=== PATIENT | male | born 1935 | race Caucasian/White ===

== ENCOUNTER → 2017-09-01 | Outpatient (CLI) | payer OTHER, BC ==
[~2017-09-01] MED LIST: ALLO100T PO; ASPI81TA28 PO; ATEN50TA8 PO; CALC500C70 PO; CHOL20007 PO; CLOP1TAB15 PO; CRS10 PO; HYZ/50125 PO; INSDGI SC; NVLGI SC; PRLSR20 PO; TORS10TA14 PO; TYLER650 PO
--- NOTE | 2017-09-01 14:14 | DIAGNOSTIC IMAGING REPORT ---
MRI OF THE BRAIN WITHOUT CONTRAST CLINICAL HISTORY: MEMORY LOSS, IMBALANCE, R/O CVA OCCASIONAL HEADACHES. COMPARISON STUDY: None. FINDINGS: Sagittal T1, axial diffusion, proton density and T2 weighted axial, coronal FLAIR, and axial T1-weighted images were acquired. No intra or extra-axial mass lesions are visualized Axial diffusion-weighted images reveal no evidence of acute or subacute infarction. There is no evidence of ventricular dilatation. Proton density T2-weighted and FLAIR images reveal scattered foci of increased T2 signal within the white matter, likely on a small vessel basis. There are no abnormal flow voids. There is moderate mucosal thickening within the left maxilla sinus. IMPRESSION: 1. No acute intracranial findings 2. No evidence of acute or subacute infarction 3. No evidence of intracranial mass in this noncontrast study 4. Moderate left maxillary sinus mucosal thickening Electronically signed by: Ki Mejia M.D. 09/01/2017 2:12 PM Dictated Date/Time: 09/01/2017 2:03 PM
== END | disposition home or self-care (01) ==
LOC: C.MRIBC 08:33
PROVIDERS: ATTEND Internal Medicine
DX: R41.3 Other amnesia (principal); R26.89 Other abnormalities of gait and mobility

== ENCOUNTER 2023-04-29 19:55 | Inpatient (IN) ==
[2023-04-29] MEDS ORDERED: ACETAMINOPHEN 500 MG TAB PO STA (20:03)
--- NOTE | 2023-04-29 20:07 | Emergency Department Note ---
Impression & Plan Acute kidney injury superimposed on chronic kidney disease, Closed head injury, Blunt chest trauma, Contusion of rib, Ground-level fall ED Provider Note Name: CATA HENRY Age: 88 Sex: M Arrives Via: Ambulance Informant: Patient and ED Provider: Hung Matthews MD Chief Complaint: Head injury Impression: Impression above Medical Decision Making: Pleasant 88-year-old gentleman with a history of dementia, dyslipidemia, diabetes, hypertension, CAD, CKD, arrives for evaluation following a fall. He apparently fell due to not using his walker though on exam he has dementia and is dehydrated. Patient does not overtly appear altered nor does he have any neurodeficits. GCS is 15. He does have a large contusion to his forehead he has tenderness to palpation of the left lower lateral ribs and he has mild complaint of neck discomfort. CT of the head, neck, chest are obtained which are fortunately negative for acute findings. His laboratory work-up reveals an elevated creatinine from his baseline. notes that his previous kidney diagnosis was stage III and has not had to see an kidney specialist in some time. They also note they do not have a doctor around [facility] as a follow-up with someone in [place] during the half the year that they live down there. Given his age, dehydration, elevated creatinine, fall, head injury I think all these results and the need for continued monitoring and hospitalization. Hospitalist was consulted for further management Prior Medical Record and Triage/Nursing Notes reviewed by Me External chart reviewed by me which are records from 2018 noting previous creatinine. Differentials: Infection, dehydration, metabolic abnormality, hypo/hyperglycemia, electrolyte disturbance, anemia, hypoxia, cardiac sources, intracerebral event, toxicologic, neurologic, as well as other pathologies. Vital Signs: reviewed and remarkable for mild hypertension Interventions: Normal saline bolus 500 mL IV Labs:Reviewed and remarkable for acute elevation of creatinine. All other labs reviewed by me Imaging:CT of the head as per my informal interpretation reveals no intracranial hemorrhage, mass effect. Confirmed by radiologist. CT of the cervical spine as per my informal interpretation reveals no fracture or dislocation. There is significant arthritic findings throughout. Confirmed by radiologist. CT of the chest without contrast as per my informal interpretation reveals no pneumothorax, displaced rib fractures, pneumonia. Atelectasis bilaterally. C onfirmed by radiologist. Consults:Hospitalist Dr Garsia Plan: Disposition:Hospitalization. Condition: Fair History of Present Illness:88-year-old gentleman arrives for evaluation following fall. Patient was try to get around without his walker today and tripped and fell. He landed on his face. Complaining of mild forehead pain mild neck pain and some left rib pain. Due to the pain he was unable to get up and EMS was called. Patient notes he is feeling much better now. Does agree to some Tylenol. Denies any chest pain other than the left lower ribs hurting, shortness of breath, back pain, abdominal pain, nausea, vomiting, visual changes, urinary/bowel issues or any other concerning signs or symptoms. notes that he does have a history of dementia and that he is a bit unsteady at home but as long as he has his walker she feels he is safe at home. She denies him having any altered mental status, fevers, other concerning signs or symptoms recently. She states she has been following with his GP as well as vacuum technician closely. Past History:See Below Home Medications:See Below Allergies: Morphine, pollen, shellfish, atorvastatin Vitals:Blood Pressure: 159/83, Pulse 74, RR 20, T 36.9C, O2 97% on RA Physical Exam: GENERAL: Patient is elderly appearing and in minimal distress. HEAD: Contusion upper forehead EYES: No scleral icterus, unremarkable pupils. ENT: Mucous membranes moist, no nasal congestion. NECK: No masses appreciated, nomeningismus, trachea is midline. CHEST: TTP over left lateral lower ribs, equal rise RESPIRATORY: No dyspnea. Clear to auscultation and equal bilaterally. No wheeze, no rhonchi. CARDIOVASCULAR: Regular rate and rhythm.No murmurs, rubs, gallops appreciated. GASTROINTESTINAL: Abdomen soft, non-tender, no peritonitis. EXTREMITIES: Normal motion all extremities, no cyanosis, no edema. NEUROLOGIC: Alert and with mild dementia happy no distress. No focal neurologic deficit appreciated. SKIN: No rash, no jaundice, no diaphoresis. PSYCH: Appropriate GCS: 15 ED Course: Times/Reassessments: Patient stable throughout he is sleeping in no distress. Both are agreeable to hospitalization. Hung Matthews MD Past Med/Surg History Medical History (Updated 04/29/23 @ 22:40 by Hung Matthews MD) CAD (coronary artery disease) Chronic kidney disease (CKD), stage III (moderate) Dementia Diabetes mellitus, type 2 Gout Hearing deficit Hyperlipidemia Hypertension CAMARILLO (nonalcoholic steatohepatitis) On anticoagulant therapy on plavix Osteoarthritis Pacemaker 05/2018 @ [facility] by Dr. Abby Bustamante PAD (peripheral artery disease) Sleep apnea CPAP--doesn't used as ordered Surgical History History of bilateral cataract extraction History of cardiac cath x2----no stents History of colonoscopy History of coronary angioplasty 1986 History of esophagogastroduodenoscopy (EGD) History of lumbar fusion hardware in place History of tonsillectomy History of tooth extraction S/P CABG x 3 1999 @ [facility] [place] S/P peripheral artery angioplasty with stent placement x2-- (total of 2 stents) Family History Mother Family history of diabetes mellitus Social History Smoking Status: Former smoker Second Hand Exposure: Yes (father smoked); Do You Dip or Chew Tobacco: No; Hx Alcohol Use: Yes Alcohol type: hard liquor Hx Substance Use: No Preferred Language: Indonesian Communication Ability: Effective Coke Wheeler Required: No Beliefs That Will Affect Care: None Current Living Situation: Spouse Feels Safe at Home: Yes Assistive Devices: Cane, CPAP, Glasses and Hearing Aid - Bilateral Allergies Allergies Allergy/AdvReac Type Severity Reaction Status Date / Time morphine Allergy Unknown HIVES Verified 08/25/18 08:00 pollen extracts Allergy Unknown RUNNY EYES Verified 08/25/18 08:00 shellfish derived Allergy Unknown NECK Verified 08/25/18 08:00 SWELLS-30 YRS AGO WITH CRABS atorvastatin AdvReac Mild SHOULDER Verified 08/25/18 08:00 PAIN Home Meds Home Medications Medication Instructions Recorded Confirmed allopurinol 100 mg tablet 100 mg PO QAM 08/19/18 04/29/23 aspirin 81 mg tablet,delayed 81 mg PO QPM 08/19/18 04/29/23 release atenolol 50 mg tablet 25 mg PO QAM 08/19/18 04/29/23 clopidogrel 75 mg tablet 75 mg PO QAM 08/19/18 04/29/23 insulin aspart U-100 100 unit/mL 1 unit subcut AC 12/05/18 12/11/18 (3 mL) subcutaneous pen (Novolog FlexPen U-100 Insulin aspart) insulin glargine 100 unit/mL 56 unit subcut HS 08/19/18 08/25/18 subcutaneous solution omeprazole 20 mg tablet,delayed 20 mg PO BID 08/19/18 04/29/23 release rosuvastatin 5 mg tablet 5 mg PO QPM 08/19/18 04/29/23 torsemide 10 mg tablet 10 mg PO QAM 08/19/18 04/29/23 furosemide 40 mg tablet 80 mg PO UD 04/29/23 04/29/23 ranolazine 500 mg tablet,extended 500 mg PO BID 04/29/23 04/29/23 release,12 hr tamsulosin 0.4 mg capsule 0.4 mg PO DAILY 04/29/23 04/29/23 Results & Data (ED) Vital Signs Vital Signs - 24 hr 04/29/23 20:04 04/29/23 20:14 04/29/23 20:09 Temperature 36.9 C Temperature Source Oral Pulse Rate 69 64 Pulse Rate from SpO2 Sensor Pulse Rhythm Regular Pulse Strength Normal Respiratory Rate 18 Respiratory Effort / Characteristics Non-Labored Spontaneous Non-Labored Spontaneous Respiratory Depth Normal Normal Respiratory Pattern Regular Blood Pressure 151/69 H Blood Pressure Mean 96 Blood Pressure Position Sitting Pulse Oximetry 95 Oxygen Delivery Method Room Air Sepsis Recent Fever Within 48 Hours No Sepsis New/Unexplained Change in Mental Status N/A Sepsis Action Taken by Nursing No Action Required 04/29/23 20:13 04/29/23 20:30 04/29/23 21:02 Temperature Temperature Source Pulse Rate 64 60 68 Pulse Rate from SpO2 Sensor 64 60 Pulse Rhythm Pulse Strength Respiratory Rate 22 21 19 Respiratory Effort / Characteristics Respiratory Depth Respiratory Pattern Blood Pressure Blood Pressure Mean Blood Pressure Position Pulse Oximetry 97 95 Oxygen Delivery Method Sepsis Recent Fever Within 48 Hours Sepsis New/Unexplained Change in Mental Status Sepsis Action Taken by Nursing 04/29/23 21:31 04/29/23 21:36 04/29/23 22:00 Temperature Temperature Source Pulse Rate 68 74 60 Pulse Rate from SpO2 Sensor 65 74 60 Pulse Rhythm Pulse Strength Respiratory Rate 20 20 22 Respiratory Effort / Characteristics Respiratory Depth Respiratory Pattern Blood Pressure 159/83 H Blood Pressure Mean 108 Blood Pressure Position Pulse Oximetry 92 97 93 Oxygen Delivery Method Sepsis Recent Fever Within 48 Hours Sepsis New/Unexplained Change in Mental Status Sepsis Action Taken by Nursing 04/29/23 22:30 04/29/23 22:37 Temperature Temperature Source Pulse Rate 60 60 Pulse Rate from SpO2 Sensor Pulse Rhythm Pulse Strength Respiratory Rate 19 22 Respiratory Effort / Characteristics Respiratory Depth Respiratory Pattern Blood Pressure 138/62 Blood Pressure Mean 87 Blood Pressure Position Pulse Oximetry Oxygen Delivery Method Sepsis Recent Fever Within 48 Hours Sepsis New/Unexplained Change in Mental Status Sepsis Action Taken by Nursing Laboratory Data 04/29/23 20:15 04/29/23 20:15 Lab Results 04/29/23 04/29/23 04/29/23 Range/Units 20:15 20:15 20:15 WBC 11.95 H (4.8-10.8) K/ul RBC 3.70 L (4.70-6.10) M/uL Hgb 12.2 L (14.0-18.0) g/dl Hct 35.0 L (42.0-52.0) % MCV 94.6 (80.0-100.0) fL MCH 33.0 (25.0-34.0) pg MCHC 34.9 (32.0-36.0) g/dL RDW Std Deviation 54.4 H (36.4-46.3) fL RDW Coeff of Dave 15.7 H (11.5-14.5) % Plt Count 155 (130-400) K/uL MPV 11.5 (9.4-12.4) fL Immature Gran % (Auto) 1.1 % Neut % (Auto) 77.9 % Lymph % (Auto) 10.4 % Calloway % (Auto) 8.4 % Eos % (Auto) 1.9 % Baso % (Auto) 0.3 % Neut # (Auto) 9.32 H (1.40-6.50) K/uL Lymph # (Auto) 1.24 (1.2-3.4) K/uL Calloway # (Auto) 1.00 H (0.11-0.59) K/uL Eos # (Auto) 0.23 (0-0.50) K/uL Baso # (Auto) 0.03 (0-0.2) K/uL Immature Gran # (Auto) 0.13 (0.01-0.20) K/uL Sodium 139 (136-145) mmol/L Potassium 4.0 (3.5-5.1) mmol/L Chloride 107 (98-107) mmol/L Carbon Dioxide 24 (21-32) mmol/L Anion Gap 8 (3-11) BUN 60 H (6-23) mg/dl Creatinine 2.86 H (0.6-1.4) mg/dl Est Cr Clr Drug Dosing 16.8 ml/min Est GFR ( Amer) 22.1 ml/min Est GFR (Non-Af Amer) 19.0 ml/min BUN/Creatinine Ratio 21.0 H (10-20) Glucose 117 H (70-99(Fasting)) mg/dl Osmolality 307 H (280-300) mOsm/kg Calcium 9.3 (8.6-10.3) mg/dl Magnesium 1.9 (1.7-2.4) mg/dl Total Bilirubin 0.7 (0.2-1.0) mg/dl Direct Bilirubin 0.2 (0-0.2) mg/dl AST 15 (13-39) U/L ALT 10 (7-52) U/L Alkaline Phosphatase 96 (34-104) U/L Total Protein 6.4 (6.0-8.3) gm/dl Albumin 3.7 (3.4-5.0) gm/dl Urine Osmolality (500-800) mOsm/kg Ur Random Sodium mmol/L 04/29/23 04/29/23 Range/Units 21:31 21:31 WBC (4.8-10.8) K/ul RBC (4.70-6.10) M/uL Hgb (14.0-18.0) g/dl Hct (42.0-52.0) % MCV (80.0-100.0) fL MCH (25.0-34.0) pg MCHC (32.0-36.0) g/dL RDW Std Deviation (36.4-46.3) fL RDW Coeff of Dave (11.5-14.5) % Plt Count (130-400) K/uL MPV (9.4-12.4) fL Immature Gran % (Auto) % Neut % (Auto) % Lymph % (Auto) % Calloway % (Auto) % Eos % (Auto) % Baso % (Auto) % Neut # (Auto) (1.40-6.50) K/uL Lymph # (Auto) (1.2-3.4) K/uL Calloway # (Auto) (0.11-0.59) K/uL Eos # (Auto) (0-0.50) K/uL Baso # (Auto) (0-0.2) K/uL Immature Gran # (Auto) (0.01-0.20) K/uL Sodium (136-145) mmol/L Potassium (3.5-5.1) mmol/L Chloride (98-107) mmol/L Carbon Dioxide (21-32) mmol/L Anion Gap (3-11) BUN (6-23) mg/dl Creatinine (0.6-1.4) mg/dl Est Cr Clr Drug Dosing ml/min Est GFR ( Amer) ml/min Est GFR (Non-Af Amer) ml/min BUN/Creatinine Ratio (10-20) Glucose (70-99(Fasting)) mg/dl Osmolality (280-300) mOsm/kg Calcium (8.6-10.3) mg/dl Magnesium (1.7-2.4) mg/dl Total Bilirubin (0.2-1.0) mg/dl Direct Bilirubin (0-0.2) mg/dl AST (13-39) U/L ALT (7-52) U/L Alkaline Phosphatase (34-104) U/L Total Protein (6.0-8.3) gm/dl Albumin (3.4-5.0) gm/dl Urine Osmolality 395 L (500-800) mOsm/kg Ur Random Sodium 24 mmol/L Administered Medications Discontinued Medications Acetaminophen (Acetaminophen 500 Mg Tab) 1,000 mg PO NOW STA Stop: 04/29/23 20:04 Last Admin: 04/29/23 20:19 Dose: 1,000 mg Documented By: FLAQUITO Sodium Chloride (Nss) 500 mls @ 999 mls/hr IV .Q31M ONE Stop: 04/29/23 21:54 Last Infusion: 04/29/23 22:11 Dose: 0 mls/hr Documented By: Admin: 04/29/23 21:39 Dose: 999 mls/hr Documented By: FLAQUITO Imaging Data Radiologist's Impression: Cervical Spine CT 04/29/23 20:03 Exam(s): CT C SPINE EXAM: CT Cervical Spine Without Intravenous Contrast CLINICAL HISTORY: Reason for exam: Head injury with neck pain. TECHNIQUE: Axial computed tomography images of the cervical spine without intravenous contrast. CTDI is 26.48 mGy and DLP is 520.03 mGy-cm. Automated exposure control was utilized for the study. A dose lowering technique was utilized adhering to the principles of ALARA. COMPARISON: CT cervical spine dated 05/12/2018 FINDINGS: Vertebrae: The vertebral bodies are intact without acute osseous traumatic injury. No anterolisthesis or retrolisthesis is identified. The facet joints are well aligned without subluxation or dislocation. The pedicles, transverse processes and spinous processes are intact. Similar multilevel facet hypertrophic changes, right greater than left, similar to the previous examination. Discs/spinal canal/neural foramina: Progressive disc spondylosis degenerative changes, most prominently noted involving the inferior cervical spine at C5-6 through C7-T1. Soft tissues: Unremarkable. IMPRESSION: No acute osseous traumatic injury or significant abnormal alignment involving the cervical spine. Progressive, although chronic appearing degenerative changes noted involving the inferior cervical spine. Electronically signed by: William Casillas MD 04/29/23 22:[address] 04/29/23 20:03 Exam(s): CT CHEST Without Contrast EXAM: CT Chest Without Intravenous Contrast CLINICAL HISTORY: Trauma bilateral primarily left rib tenderness to. TECHNIQUE: Axial computed tomography images of the chest without intravenous contrast. CTDI is 22.36 mGy and DLP is 666.09 mGy-cm. Automated exposure control was utilized for the study. A dose lowering technique was utilized adhering to the principles of ALARA. COMPARISON: No relevant prior studies available. FINDINGS: Lungs: No pulmonary contusive injury. Diminished lung volumes with curvilinear changes in the inferior lingular segments and bilateral lower lobes. Pleural space: Unremarkable. No pneumothorax. No significant effusion. Heart: Evidence of previous CABG. No significant pericardial effusion. No significant coronary artery calcifications. Mediastinum: No mediastinal traumatic injury. Bones/joints: No displaced rib fracture identified. The thoracic vertebral bodies demonstrate maintained height without acute traumatic injury. The sternum is intact with sternotomy wires. No dislocation. Soft tissues: Unremarkable. Vasculature: The aorta demonstrates atherosclerotic changes but is normal in caliber. A vein graft is suggested extending from the anterior aorta. A CARDENAS graft is suggested. Extensive coronary artery calcification. No pericardial effusion. No thoracic aortic aneurysm. Lymph nodes: Unremarkable. No enlarged lymph nodes. Tubes, lines and devices: No significant overlying acute traumatic soft tissue abnormality. Incidental cardiac pacer overlying the left pectoralis muscle. A dual lead cardiac pacer is noted. IMPRESSION: No pulmonary contusive injury. Diminished lung volumes with curvilinear changes in the inferior lingular segments and bilateral lower lobes. Suspect subsegmental atelectasis. No pleural effusion or pneumothorax. No other evidence for significant acute traumatic injury involving the unenhanced chest/thorax. Electronically signed by: William Casillas MD 04/29/23 22:[address] 04/29/23 20:03 Exam(s): CT HEAD Without Contrast EXAM: CT Head Without Intravenous Contrast CLINICAL HISTORY: Forehead trauma. TECHNIQUE: Axial computed tomography images of the head/brain without intravenous contrast. CTDI is 37.42 mGy and DLP is 624.41 mGy-cm. Automated exposure control was utilized for the study. A dose lowering technique was utilized adhering to the principles of ALARA. COMPARISON: 05/12/2018 FINDINGS: Brain: There are a few areas of decreased attenuation in the deep cerebral white matter consistent with mild small vessel ischemic/degenerative changes. The cerebral and cerebellar sulci are mildly prominent consistent with mild brain atrophy. No hemorrhage. Ventricles: Unremarkable. No ventriculomegaly. Bones/joints: Unremarkable. No acute fracture. Soft tissues: No significant overlying acute traumatic soft tissue abnormality. No radiopaque foreign body. Vasculature: Atherosclerotic disease. Sinuses: Mucoperiosteal sclerosis and opacification of the left maxillary sinus with hyperdense inspissated material internally. The remaining paranasal sinuses are well aerated. Mastoid air cells: Unremarkable as visualized. No mastoid effusion. IMPRESSION: No acute intracranial process or significant alteration from the previous examination. Electronically signed by: William Casillas MD 04/29/23 22:15 PM Discharge Plan Visit Data Chief Complaint: Fall Stated Complaint: FALL, RIB PAIN ED Provider: Hung Matthews Discharge Problem: Acute kidney injury superimposed on chronic kidney disease, Closed head injury, Blunt chest trauma, Contusion of rib, Ground-level fall Forms Stand Alone Forms: [facility] Prescriptions Prescriptions: No Action insulin glargine 100 unit/mL Solution 56 unit SUBCUT HS torsemide 10 mg Tablet 10 mg PO QAM clopidogrel 75 mg Tablet 75 mg PO QAM allopurinol 100 mg Tablet 100 mg PO QAM aspirin 81 mg Tablet,Delayed Release (Dr/Ec) 81 mg PO QPM atenolol 50 mg Tablet 25 mg PO QAM insulin aspart U-100 [Novolog FlexPen U-100 Insulin] 100 unit/mL Insulin Pen 1 unit SUBCUT AC Rx Instructions: sliding scale--16 units with breakfast, 18 units with lunch and 20 units with dinner rosuvastatin 5 mg Tablet 5 mg PO QPM omeprazole 20 mg Tablet,Delayed Release (Dr/Ec) 20 mg PO BID furosemide 40 mg tablet 80 mg PO UD ranolazine 500 mg tablet extended release 12 hr 500 mg PO BID tamsulosin 0.4 mg capsule 0.4 mg PO DAILY Referrals Referrals: Livan Horn DO [Physician] - Closed head injury Qualifiers: Encounter type: initial encounter Qualified Code(s): S09.90XA - Unspecified injury of head, initial encounter Blunt chest trauma Qualifiers: Encounter type: initial encounter Qualified Code(s): S29.8XXA - Other specified injuries of thorax, initial encounter Contusion of rib Qualifiers: Encounter type: initial encounter Laterality: left Qualified Code(s): S20.212A - Contusion of left front wall of thorax, initial encounter
[2023-04-29 20:34] LABS: Basophils # (auto) 0.03 K/uL (0-0.2); Basophils % (auto) 0.3 %; Eosinophils # (auto) 0.23 K/uL (0-0.50); Eosinophils % (auto) 1.9 %; Hemoglobin 12.2 g/dl (14.0-18.0); Immature Granulocytes # (auto) 0.13 K/uL (0.01-0.20); Immature Granulocytes % (auto) 1.1 %; Lymphocytes # (auto) 1.24 K/uL (1.2-3.4); Lymphocytes % (auto) 10.4 %; Mean Corpuscular Hgb Conc 34.9 g/dL (32.0-36.0); Mean Corpuscular Volume 94.6 fL (80.0-100.0); Mean Platelet Volume 11.5 fL (9.4-12.4); Monocytes % (auto) 8.4 %; Neutrophils # (auto) 9.32 K/uL (1.40-6.50); Neutrophils % (auto) 77.9 %; Platelet Count 155 K/uL (130-400); RDW Coefficient of Variation 15.7 % (11.5-14.5); RDW Standard Deviation 54.4 fL (36.4-46.3); White Blood Count 11.95 K/ul (4.8-10.8)
[2023-04-29 20:50] LABS: Albumin Level 3.7 gm/dl (3.4-5.0); Bilirubin Direct 0.2 mg/dl (0-0.2); Bilirubin,Total 0.7 mg/dl (0.2-1.0); Calcium 9.3 mg/dl (8.6-10.3); Creatinine Clr Calc Pharmacy 16.8 ml/min; Est GFR (African American) 22.1 ml/min; Magnesium 1.9 mg/dl (1.7-2.4); Total Protein 6.4 gm/dl (6.0-8.3)
[2023-04-29] MEDS ORDERED: SODIUM CHLORIDE 0.9% 500 ML IV ONE (21:24)
--- NOTE | 2023-04-29 22:14 | CT Scan Report ---
Exam(s): CT C SPINE EXAM: CT Cervical Spine Without Intravenous Contrast CLINICAL HISTORY: Reason for exam: Head injury with neck pain. TECHNIQUE: Axial computed tomography images of the cervical spine without intravenous contrast. CTDI is 26.48 mGy and DLP is 520.03 mGy-cm. Automated exposure control was utilized for the study. A dose lowering technique was utilized adhering to the principles of ALARA. COMPARISON: CT cervical spine dated 05/12/2018 FINDINGS: Vertebrae: The vertebral bodies are intact without acute osseous traumatic injury. No anterolisthesis or retrolisthesis is identified. The facet joints are well aligned without subluxation or dislocation. The pedicles, transverse processes and spinous processes are intact. Similar multilevel facet hypertrophic changes, right greater than left, similar to the previous examination. Discs/spinal canal/neural foramina: Progressive disc spondylosis degenerative changes, most prominently noted involving the inferior cervical spine at C5-6 through C7-T1. Soft tissues: Unremarkable. IMPRESSION: No acute osseous traumatic injury or significant abnormal alignment involving the cervical spine. Progressive, although chronic appearing degenerative changes noted involving the inferior cervical spine. Electronically signed by: William Casillas MD 04/29/23 22:13 PM
--- NOTE | 2023-04-29 22:16 | CT Scan Report ---
Exam(s): CT HEAD Without Contrast EXAM: CT Head Without Intravenous Contrast CLINICAL HISTORY: Forehead trauma. TECHNIQUE: Axial computed tomography images of the head/brain without intravenous contrast. CTDI is 37.42 mGy and DLP is 624.41 mGy-cm. Automated exposure control was utilized for the study. A dose lowering technique was utilized adhering to the principles of ALARA. COMPARISON: 05/12/2018 FINDINGS: Brain: There are a few areas of decreased attenuation in the deep cerebral white matter consistent with mild small vessel ischemic/degenerative changes. The cerebral and cerebellar sulci are mildly prominent consistent with mild brain atrophy. No hemorrhage. Ventricles: Unremarkable. No ventriculomegaly. Bones/joints: Unremarkable. No acute fracture. Soft tissues: No significant overlying acute traumatic soft tissue abnormality. No radiopaque foreign body. Vasculature: Atherosclerotic disease. Sinuses: Mucoperiosteal sclerosis and opacification of the left maxillary sinus with hyperdense inspissated material internally. The remaining paranasal sinuses are well aerated. Mastoid air cells: Unremarkable as visualized. No mastoid effusion. IMPRESSION: No acute intracranial process or significant alteration from the previous examination. Electronically signed by: William Casillas MD 04/29/23 22:15 PM
--- NOTE | 2023-04-29 22:22 | CT Scan Report ---
Exam(s): CT CHEST Without Contrast EXAM: CT Chest Without Intravenous Contrast CLINICAL HISTORY: Trauma bilateral primarily left rib tenderness to. TECHNIQUE: Axial computed tomography images of the chest without intravenous contrast. CTDI is 22.36 mGy and DLP is 666.09 mGy-cm. Automated exposure control was utilized for the study. A dose lowering technique was utilized adhering to the principles of ALARA. COMPARISON: No relevant prior studies available. FINDINGS: Lungs: No pulmonary contusive injury. Diminished lung volumes with curvilinear changes in the inferior lingular segments and bilateral lower lobes. Pleural space: Unremarkable. No pneumothorax. No significant effusion. Heart: Evidence of previous CABG. No significant pericardial effusion. No significant coronary artery calcifications. Mediastinum: No mediastinal traumatic injury. Bones/joints: No displaced rib fracture identified. The thoracic vertebral bodies demonstrate maintained height without acute traumatic injury. The sternum is intact with sternotomy wires. No dislocation. Soft tissues: Unremarkable. Vasculature: The aorta demonstrates atherosclerotic changes but is normal in caliber. A vein graft is suggested extending from the anterior aorta. A CARDENAS graft is suggested. Extensive coronary artery calcification. No pericardial effusion. No thoracic aortic aneurysm. Lymph nodes: Unremarkable. No enlarged lymph nodes. Tubes, lines and devices: No significant overlying acute traumatic soft tissue abnormality. Incidental cardiac pacer overlying the left pectoralis muscle. A dual lead cardiac pacer is noted. IMPRESSION: No pulmonary contusive injury. Diminished lung volumes with curvilinear changes in the inferior lingular segments and bilateral lower lobes. Suspect subsegmental atelectasis. No pleural effusion or pneumothorax. No other evidence for significant acute traumatic injury involving the unenhanced chest/thorax. Electronically signed by: William Casillas MD 04/29/23 22:21 PM
[2023-04-29 22:46] LABS: Appearance Urine Turbid (Clear); Bacteria Urine Automated 4+ (Negative); Bilirubin Urine Negative (Negative); Blood Urine Trace (Negative); Cast Urine Automated 0 /lpf (0-5); Color Urine Dark Yellow; Glucose Urine UA Negative (Negative); Ketones Urine Negative (Negative); Leukocyte Esterase Urine 3+ (Negative); Nitrite Urine Negative (Negative); Protein Urine Trace (Negative); RBC Urine Automated 0-4 /hpf (0-4); Specific Gravity Urine 1.015 (1.000-1.030); Urobilinogen Urine Negative (Negative); WBC Urine Automated >30 /hpf (0-5)
--- NOTE | 2023-04-30 00:14 | History & Physical Report ---
Date of Service April 30, 2023 Assessment & Plan (1) Ground-level fall: Plan: Resulting in head and chest injury. History ambulatory dysfunction Kidney dysfunction Possible new baseline Baseline creatinine of 1.7 from 2020 New onset anemia hx CAD status post CABG hx PAD status post stent SSS status post PPM hypertension, BP on the lower side hyperlipidemia statin Rx DM2 insulin requiring, well-controlled as of last outpatient hemoglobin A1c of 6.2 in 2020 BRIAN CPAP noncompliance dementia Asymptomatic pyuria, patient not septic hx BPH status post surgery past tobacco abuse OBS Medical telemetry Retrieve recent outpatient labs from PCPs office Monitor creatinine response to IVF, hold losartan and home diuretic Rx until baseline established anemia work-up, transfuse PRBC if hemoglobin less than 8 and for symptomatic anemia Appropriate to hold Plavix for now given bruising from injury, resume once hemoglobin stable Basal bolus insulin, ISS BG goal 1 10-1 40, carb count coverage, update hemoglobin A1c Follow urine CS, patient requesting to hold off on antibiotics for now as patient asymptomatic ( gives history of patient being placed on multiple courses of antibiotics that never cleared his urine because patient was colonized as per physician explanation.) PT OT eval Delirium precautions DVT prophylaxis. TEDS (SCDs contraindicated by history PAD) Full code Patient requesting updates providers. Rigo Kimi Larios, contact #[phone]. Text document was generated using [employer] voice recognition software. It may contain grammatical or spelling errors. Kindly contact undersigned for clarification of any documentation item in question. History of Present Illness Chief Complaint: Fall as per records My body was not working well as per patient. Primary Care Provider: Dr. Junaid Gu from [place], [place] History obtained from patient, family, and records. Limited history from patient secondary to dementia. Medical history significant for CAD status post CABG, PVD status post stent, SSS status post PPM, hypertension, hyperlipidemia, DM2 insulin requiring, BRIAN CPAP noncompliance, NAFLD, CRI (unknown recent baseline), dementia, BPH, past tobacco abuse. Last [facility] confinement 2017 for sinus node dysfunction status post PPM. Patient and relocated to [place] in 2020. They have been back in town this summer to sort out their belongings at their old home. Patient ambulating not as well the last few weeks as per . Patient fell face forward coming out of an elevator at the condominium today. Fall witnessed by . No syncope, LOC, witnessed seizures. Patient not any more confused than usual as per . Patient complaining of left-sided chest pain and frontal headache from trauma. Denies dysuria symptoms. Patient brought to the ER for evaluation. 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 Allergies Allergy/AdvReac Type Severity Reaction Status Date / Time morphine Allergy Unknown HIVES Verified 04/29/23 23:13 pollen extracts Allergy Unknown RUNNY EYES Verified 08/25/18 08:00 shellfish derived Allergy Unknown NECK Verified 08/25/18 08:00 SWELLS-30 YRS AGO WITH CRABS atorvastatin AdvReac Mild SHOULDER Verified 04/29/23 23:13 PAIN Home Medications Medication Instructions Recorded Confirmed Type allopurinol 100 mg tablet 100 mg PO QAM 08/19/18 04/29/23 History insulin aspart U-100 100 unit/mL 1 unit subcut AC 08/19/18 04/29/23 History (3 mL) subcutaneous pen (Novolog FlexPen U-100 Insulin aspart) insulin glargine 100 unit/mL 36 unit subcut HS 08/19/18 04/29/23 History subcutaneous solution omeprazole 20 mg tablet,delayed 20 mg PO BID 08/19/18 04/29/23 History release rosuvastatin 5 mg tablet 5 mg PO QPM 08/19/18 04/29/23 History aspirin 81 mg tablet,delayed 81 mg PO QPM 04/29/23 04/29/23 History release calcium carbonate 600 mg-vitamin 1 tab PO BID 04/29/23 04/29/23 History D3 10 mcg (400 unit) tablet (Calcium 600 + D(3)) cholestyramine (with sugar) 4 gram 4 g PO AMPM 04/29/23 04/29/23 History powder for susp in a packet (Questran) furosemide 40 mg tablet 80 mg PO AMPM 04/29/23 04/29/23 History losartan 50 mg tablet 50 mg PO BID 04/29/23 04/29/23 History ranolazine 500 mg tablet,extended 500 mg PO BID 04/29/23 04/29/23 History release,12 hr tamsulosin 0.4 mg capsule 0.4 mg PO DAILY 04/29/23 04/29/23 History Past Med/Surg History Medical History (Updated 04/29/23 @ 22:40 by Hung Matthews MD) CAD (coronary artery disease) Chronic kidney disease (CKD), stage III (moderate) Dementia Diabetes mellitus, type 2 Gout Hearing deficit Hyperlipidemia Hypertension CAMARILLO (nonalcoholic steatohepatitis) On anticoagulant therapy on plavix Osteoarthritis Pacemaker 05/2018 @ [facility] P[facility] (peripheral artery disease) Sleep apnea CPAP--doesn't used as ordered Surgical History History of bilateral cataract extraction History of cardiac cath x2----no stents History of colonoscopy History of coronary angioplasty 1986 History of esophagogastroduodenoscopy (EGD) History of lumbar fusion hardware in place History of tonsillectomy History of tooth extraction S/P CABG x 3 1999 @ [facility] [place] S/P peripheral artery angioplasty with stent placement x2-- (total of 2 stents) Family History Mother Family history of diabetes mellitus Social History Smoking Status: Former smoker Second Hand Exposure: Yes (father smoked); Do You Dip or Chew Tobacco: No; Hx Alcohol Use: Yes Alcohol type: wine Hx Substance Use: No Preferred Language: Estonian Communication Ability: Effective Orthopaedic Surgeon Required: No Beliefs That Will Affect Care: None Current Living Situation: Spouse Feels Safe at Home: Yes Assistive Devices: Cane, CPAP, Glasses and Hearing Aid - Bilateral Review of Systems Review of Systems: Could not be reliably obtained secondary to dementia Physical Exam Physical Exam: GENERAL: Slightly comfortable, obese, demented, no respiratory distress SKIN: Pallor, warm HEENT: Partial alopecia, faint ecchymosis forehead and left cheek,pale palpebral conjunctivae, no ptosis, dry buccal mucosa NECK : Supple, short neck, no tenderness CHEST : CTA, left subcostal tenderness HEART : RRR, no obvious murmurs ABDOMEN: Some distention, left upper quadrant tenderness EXTREMITIES : Minimal LE swelling, no LE tenderness, no other conspicuous deformities noted NEUROLOGIC : Demented, no facial asymmetry, gait and stance not assessed. Results & Data Results & Data Vital Signs (Past 12 Hours) Vital Signs Temp Pulse Resp BP Pulse Ox O2 Del Method 04/29/23 22:37 60 22 138/62 04/29/23 22:30 60 19 04/29/23 22:00 60 22 93 04/29/23 21:36 74 20 159/83 H 97 04/29/23 21:31 68 20 92 04/29/23 21:02 68 19 04/29/23 20:30 60 21 95 04/29/23 20:13 64 22 97 04/29/23 20:14 64 04/29/23 20:04 36.9 C 69 18 151/69 H 95 Room Air Laboratory Results Laboratory Results WBC 11.95 K/ul (4.8-10.8) H 04/29/23 20:15 RBC 3.70 M/uL (4.70-6.10) L 04/29/23 20:15 Hgb 12.2 g/dl (14.0-18.0) L 04/29/23 20:15 Hct 35.0 % (42.0-52.0) L 04/29/23 20:15 MCV 94.6 fL (80.0-100.0) 04/29/23 20:15 MCH 33.0 pg (25.0-34.0) 04/29/23 20:15 MCHC 34.9 g/dL (32.0-36.0) 04/29/23 20:15 RDW Std Deviation 54.4 fL (36.4-46.3) H 04/29/23 20:15 RDW Coeff of Dave 15.7 % (11.5-14.5) H 04/29/23 20:15 Plt Count 155 K/uL (130-400) 04/29/23 20:15 MPV 11.5 fL (9.4-12.4) 04/29/23 20:15 Immature Gran % (Auto) 1.1 % 04/29/23 20:15 Neut % (Auto) 77.9 % 04/29/23 20:15 Lymph % (Auto) 10.4 % 04/29/23 20:15 Clare % (Auto) 8.4 % 04/29/23 20:15 Eos % (Auto) 1.9 % 04/29/23 20:15 Baso % (Auto) 0.3 % 04/29/23 20:15 Neut # (Auto) 9.32 K/uL (1.40-6.50) H 04/29/23 20:15 Lymph # (Auto) 1.24 K/uL (1.2-3.4) 04/29/23 20:15 Clare # (Auto) 1.00 K/uL (0.11-0.59) H 04/29/23 20:15 Eos # (Auto) 0.23 K/uL (0-0.50) 04/29/23 20:15 Baso # (Auto) 0.03 K/uL (0-0.2) 04/29/23 20:15 Immature Gran # (Auto) 0.13 K/uL (0.01-0.20) 04/29/23 20:15 Sodium 139 mmol/L (136-145) 04/29/23 20:15 Potassium 4.0 mmol/L (3.5-5.1) 04/29/23 20:15 Chloride 107 mmol/L (98-107) 04/29/23 20:15 Carbon Dioxide 24 mmol/L (21-32) 04/29/23 20:15 Anion Gap 8 (3-11) 04/29/23 20:15 BUN 60 mg/dl (6-23) H 04/29/23 20:15 Creatinine 2.86 mg/dl (0.6-1.4) H 04/29/23 20:15 Est Cr Clr Drug Dosing 16.8 ml/min 04/29/23 20:15 Est GFR ( Amer) 22.1 ml/min 04/29/23 20:15 Est GFR (Non-Af Amer) 19.0 ml/min 04/29/23 20:15 BUN/Creatinine Ratio 21.0 (10-20) H 04/29/23 20:15 Glucose 117 mg/dl (70-99(Fasting)) H 04/29/23 20:15 Osmolality 307 mOsm/kg (280-300) H 04/29/23 20:15 Calcium 9.3 mg/dl (8.6-10.3) 04/29/23 20:15 Magnesium 1.9 mg/dl (1.7-2.4) 04/29/23 20:15 Total Bilirubin 0.7 mg/dl (0.2-1.0) 04/29/23 20:15 Direct Bilirubin 0.2 mg/dl (0-0.2) 04/29/23 20:15 AST 15 U/L (13-39) 04/29/23 20:15 ALT 10 U/L (7-52) 04/29/23 20:15 Alkaline Phosphatase 96 U/L (34-104) 04/29/23 20:15 Total Creatine Kinase 42 U/L (30-223) 04/29/23 20:15 Total Protein 6.4 gm/dl (6.0-8.3) 04/29/23 20:15 Albumin 3.7 gm/dl (3.4-5.0) 04/29/23 20:15 Urine Color Dark Yellow 04/29/23 21:31 Urine Appearance Turbid (Clear) A 04/29/23 21:31 Urine pH 5.0 (4.5-7.5) 04/29/23 21:31 Ur Specific Castor 1.015 (1.000-1.030) 04/29/23 21:31 Urine Protein Trace (Negative) H 04/29/23 21:31 Urine Glucose (UA) Negative (Negative) 04/29/23 21:31 Urine Ketones Negative (Negative) 04/29/23 21:31 Urine Blood Trace (Negative) H 04/29/23 21:31 Urine Nitrite Negative (Negative) 04/29/23 21:31 Urine Bilirubin Negative (Negative) 04/29/23 21:31 Urine Urobilinogen Negative (Negative) 04/29/23 21:31 Ur Leukocyte Esterase 3+ (Negative) H 04/29/23 21:31 Urine WBC (Auto) >30 /hpf (0-5) H 04/29/23 21:31 Urine RBC (Auto) 0-4 /hpf (0-4) 04/29/23 21:31 U Hyaline Cast (Auto) 0 /lpf (0-5) 04/29/23 21:31 U Epithel Cells (Auto) 5-10 /lpf (0-5) H 04/29/23 21:31 Urine Bacteria (Auto) 4+ (Negative) H 04/29/23 21:31 Urine Osmolality 395 mOsm/kg (500-800) L 04/29/23 21:31 Ur Random Sodium 24 mmol/L 04/29/23 21:[address] 04/29/23 20:03 Exam(s): CT C SPINE EXAM: CT Cervical Spine Without Intravenous Contrast CLINICAL HISTORY: Reason for exam: Head injury with neck pain. TECHNIQUE: Axial computed tomography images of the cervical spine without intravenous contrast. CTDI is 26.48 mGy and DLP is 520.03 mGy-cm. Automated exposure control was utilized for the study. A dose lowering technique was utilized adhering to the principles of ALARA. COMPARISON: CT cervical spine dated 05/12/2018 FINDINGS: Vertebrae: The vertebral bodies are intact without acute osseous traumatic injury. No anterolisthesis or retrolisthesis is identified. The facet joints are well aligned without subluxation or dislocation. The pedicles, transverse processes and spinous processes are intact. Similar multilevel facet hypertrophic changes, right greater than left, similar to the previous examination. Discs/spinal canal/neural foramina: Progressive disc spondylosis degenerative changes, most prominently noted involving the inferior cervical spine at C5-6 through C7-T1. Soft tissues: Unremarkable. IMPRESSION: No acute osseous traumatic injury or significant abnormal alignment involving the cervical spine. Progressive, although chronic appearing degenerative changes noted involving the inferior cervical spine. Electronically signed by: William Casillas MD 04/29/23 22:[address] 04/29/23 20:03 Exam(s): CT CHEST Without Contrast EXAM: CT Chest Without Intravenous Contrast CLINICAL HISTORY: Trauma bilateral primarily left rib tenderness to. TECHNIQUE: Axial computed tomography images of the chest without intravenous contrast. CTDI is 22.36 mGy and DLP is 666.09 mGy-cm. Automated exposure control was utilized for the study. A dose lowering technique was utilized adhering to the principles of ALARA. COMPARISON: No relevant prior studies available. FINDINGS: Lungs: No pulmonary contusive injury. Diminished lung volumes with curvilinear changes in the inferior lingular segments and bilateral lower lobes. Pleural space: Unremarkable. No pneumothorax. No significant effusion. Heart: Evidence of previous CABG. No significant pericardial effusion. No significant coronary artery calcifications. Mediastinum: No mediastinal traumatic injury. Bones/joints: No displaced rib fracture identified. The thoracic vertebral bodies demonstrate maintained height without acute traumatic injury. The sternum is intact with sternotomy wires. No dislocation. Soft tissues: Unremarkable. Vasculature: The aorta demonstrates atherosclerotic changes but is normal in caliber. A vein graft is suggested extending from the anterior aorta. A CARDENAS graft is suggested. Extensive coronary artery calcification. No pericardial effusion. No thoracic aortic aneurysm. Lymph nodes: Unremarkable. No enlarged lymph nodes. Tubes, lines and devices: No significant overlying acute traumatic soft tissue abnormality. Incidental cardiac pacer overlying the left pectoralis muscle. A dual lead cardiac pacer is noted. IMPRESSION: No pulmonary contusive injury. Diminished lung volumes with curvilinear changes in the inferior lingular segments and bilateral lower lobes. Suspect subsegmental atelectasis. No pleural effusion or pneumothorax. No other evidence for significant acute traumatic injury involving the unenhanced chest/thorax. Electronically signed by: William Casillas MD 04/29/23 22:[address] 04/29/23 20:03 Exam(s): CT HEAD Without Contrast EXAM: CT Head Without Intravenous Contrast CLINICAL HISTORY: Forehead trauma. TECHNIQUE: Axial computed tomography images of the head/brain without intravenous contrast. CTDI is 37.42 mGy and DLP is 624.41 mGy-cm. Automated exposure control was utilized for the study. A dose lowering technique was utilized adhering to the principles of ALARA. COMPARISON: 05/12/2018 FINDINGS: Brain: There are a few areas of decreased attenuation in the deep cerebral white matter consistent with mild small vessel ischemic/degenerative changes. The cerebral and cerebellar sulci are mildly prominent consistent with mild brain atrophy. No hemorrhage. Ventricles: Unremarkable. No ventriculomegaly. Bones/joints: Unremarkable. No acute fracture. Soft tissues: No significant overlying acute traumatic soft tissue abnormality. No radiopaque foreign body. Vasculature: Atherosclerotic disease. Sinuses: Mucoperiosteal sclerosis and opacification of the left maxillary sinus with hyperdense inspissated material internally. The remaining paranasal sinuses are well aerated. Mastoid air cells: Unremarkable as visualized. No mastoid effusion. IMPRESSION: No acute intracranial process or significant alteration from the previous examination. Electronically signed by: William Casillas MD 04/29/23 22:15 PM Diagnostic Findings EKG as per my interpretation :
[2023-04-30] MEDS ORDERED: PROMETHAZINE HCL 6.25 MG in SODIUM CHLORIDE 0.9% 50 ML IV PRN (00:25)
[2023-04-30 01:02] LABS: Hematocrit (blood only) 31.7 % (42.0-52.0); Hemoglobin 10.9 g/dl (14.0-18.0)
[2023-04-30] MEDS ORDERED: LACTATED RINGER'S 1,000 ML IV ONE (01:15)
[2023-04-30] MEDS ORDERED: CARBOHYDRATES FOR HYPOGLYCEMIA PO PRN (01:27)
[2023-04-30] MEDS ORDERED: DEXTROSE 50% 50 ML SYRINGE IV PRN (01:27)
[2023-04-30] MEDS ORDERED: GLUCOSE 40% GEL 15 GM TUBE PO PRN (01:27)
[2023-04-30] MEDS ORDERED: GLUCAGON FOR INJ 1 MG VIAL SQ PRN (01:27)
[2023-04-30] MEDS ORDERED: GLUCOSE 10 TAB/TUBE PO PRN (01:27)
--- NOTE | 2023-04-30 02:12 | CT Scan Report ---
Exam(s): CT ABDOMEN + PELVIS Without Contrast EXAM: CT Abdomen and Pelvis Without Intravenous Contrast CLINICAL HISTORY: LUQ pain. TECHNIQUE: Axial computed tomography images of the abdomen and pelvis without intravenous contrast. CTDI is 26.05 mGy and DLP is 1408.79 mGy-cm. Automated exposure control was utilized for the study. A dose lowering technique was utilized adhering to the principles of ALARA. COMPARISON: No relevant prior studies available. FINDINGS: Lung bases: Curvilinear changes noted at the lung bases. ABDOMEN: Liver: Unremarkable. Gallbladder and bile ducts: Unremarkable. No calcified stones. No ductal dilation. Pancreas: Unremarkable. No ductal dilation. Spleen: Unremarkable. No splenomegaly. Adrenals: Unremarkable. No mass. Kidneys and ureters: Unremarkable. No obstructing stones. No hydronephrosis. Stomach and bowel: Mild oral contents in the stomach. No gastric mucosal thickening. No evidence for bowel obstruction. Evaluation of the bowel mucosa is limited without contrast. No definite focal asymmetry. No diverticulitis. Mild stool burden. PELVIS: Appendix: A normal caliber appendix is noted posterior and lateral to the cecum. Bladder: Unremarkable. No stones. Reproductive: Unremarkable as visualized. ABDOMEN and PELVIS: Intraperitoneal space: Unremarkable. No free air. No significant fluid collection. Bones/joints: A left total hip arthroplasty is noted. Posterior fusion from L3-L5. Multilevel degenerative changes of the lumbar spine with reversal of the normal lumbar lordosis. No acute osseous abnormality. No dislocation. Soft tissues: Unremarkable. Vasculature: Atherosclerotic calcification of the normal caliber aorta. No acute periaortic abnormality. No abdominal aortic aneurysm. Lymph nodes: Unremarkable. No enlarged lymph nodes. IMPRESSION: 1. No evidence for bowel obstruction. Evaluation of the bowel mucosa is limited without contrast. No definite focal asymmetry. No diverticulitis. Mild stool burden. No free intraperitoneal fluid or pneumoperitoneum. 2. No other significant abnormality in the left upper quadrant to suggest the patient's reported clinical symptoms. Electronically signed by: William Casillas MD 04/30/23 02:11 AM
[2023-04-30] MEDS: INSULIN ASPART PER UNIT CHARGE SC SCH ×5 (02:43→23:15)
[2023-04-30 08:19] LABS: Estimated Average Glucose 137 mg/dl; Hemoglobin A1C 6.4 % (4.5-5.6)
[2023-04-30] MEDS: RANOLAZINE 500 MG ER TAB PO SCH ×2 (10:01→23:27)
[2023-04-30] MEDS: PANTOprazole 40 MG TAB PO SCH ×2 (10:01→23:27)
[2023-04-30] MEDS: allopurinoL 100 MG TAB PO SCH (10:01)
[2023-04-30] MEDS: TAMSULOSIN HCL 0.4 MG CAP PO SCH (10:01)
--- NOTE | 2023-04-30 12:38 | Nephrology Consultation ---
Date of Consultation April 30, 2023 Assessment & Plan (1) Acute kidney injury superimposed on chronic kidney disease: LILA on CKD 3b/4 versus progression of CKD. Last known baseline 1.7-2.14 November 2020. chemistries and volume status for now acceptable. -asked for community leader to contact PCP for baseline renal function studies past year and last clinic note -continue LR for 1L then stop -agree w/ holding lasix and losartan -daily bmp -ordered daily bladder scan -avoid empiric abtx given chronic bacteriuria History of Present Illness Reason for Consultation: LILA on CKD Requesting Physician: Dr Alarcon Attending Physician: Kang Alarcon MD History of Present Illness 88 y/o M [place] resident whom I'm asked to see for acute on chronic kidney injury is under observation after a fall w/ head and L chest contusions in the setting of progressive ambulatory dysfunction. Past medical history of CKD with last known baseline creatinine 1.7-2.2 in 2020. Also includes dementia, sleep apnea with noncompliance with CPAP, type 2 diabetes on insulin, hypertension, peripheral arterial disease status post stent, coronary artery disease status post CABG, CAMARILLO, asymptomatic bacteriuria, prostatic hypertrophy status post surgery, hyperlipidemia. He followed w/ one of my partners in CKD clinic in past, most recently 2019; last creatinine in 2020 x 2 checks 1.7-2.2. also w/ hx of 2.5 gm proteinuria. CKD attributed to DM, HTN, nsaids. tells me that pt had fall w/ L hip fracture and surgical repair 06/2022. In the wake of this he had what sounds like bladder outlet obstruction and was dependent on chronic stewart until spring 2022 when he underwent a prostate procedure to improve urine flow. No chronic stewart since then but he does have chronic bacteriuria in the wake of this. Patient and relocated to [place] 2020 and are in town to remove belongings from their prior home here. Patient fell face first witnessed by and subsequently with frontal headache and left-sided chest pain. He is not getting nephrology care in [place] per his . He also has a new PCP in [place] in the past 6 mos. He did have labwork past 6 mos but don't know his renal #s. His presenting creatinine is 2.9. Urinalysis notable for specific gravity 1015 turbid dark yellow urine with greater than 30 white cells 3+ leukocyte esterase 4+ bacteria and 5-10 epithelial cells, 0-4 red cells. No voiding complaints. He is receiving lactated Ringer's at 80 mL hourly. He also had 1/2 L of normal saline. His 80 mg twice daily Lasix dose was held. Currently on RA. He endorses mild L sided pleuritic chest pain. Tells me he had R sided pain earlier. Denies n/v. denies edema, cough, dyspnea. Allergies Allergy/AdvReac Type Severity Reaction Status Date / Time morphine Allergy Unknown HIVES Verified 04/29/23 23:13 pollen extracts Allergy Unknown RUNNY EYES Verified 08/25/18 08:00 shellfish derived Allergy Unknown NECK Verified 08/25/18 08:00 SWELLS-30 YRS AGO WITH CRABS atorvastatin AdvReac Mild SHOULDER Verified 04/29/23 23:13 PAIN Home Medications Medication Instructions Recorded Confirmed Type allopurinol 100 mg tablet 100 mg PO QAM 08/19/18 04/29/23 History insulin aspart U-100 100 unit/mL 1 unit subcut AC 08/19/18 04/29/23 History (3 mL) subcutaneous pen (Novolog FlexPen U-100 Insulin aspart) insulin glargine 100 unit/mL 36 unit subcut HS 08/19/18 04/29/23 History subcutaneous solution omeprazole 20 mg tablet,delayed 20 mg PO BID 08/19/18 04/29/23 History release rosuvastatin 5 mg tablet 5 mg PO QPM 08/19/18 04/29/23 History aspirin 81 mg tablet,delayed 81 mg PO QPM 04/29/23 04/29/23 History release calcium carbonate 600 mg-vitamin 1 tab PO BID 04/29/23 04/29/23 History D3 10 mcg (400 unit) tablet (Calcium 600 + D(3)) cholestyramine (with sugar) 4 gram 4 g PO AMPM 04/29/23 04/29/23 History powder for susp in a packet (Questran) furosemide 40 mg tablet 80 mg PO AMPM 04/29/23 04/29/23 History losartan 50 mg tablet 50 mg PO BID 04/29/23 04/29/23 History ranolazine 500 mg tablet,extended 500 mg PO BID 04/29/23 04/29/23 History release,12 hr tamsulosin 0.4 mg capsule 0.4 mg PO DAILY 04/29/23 04/29/23 History Patient History Medical History (Updated 04/29/23 @ 22:40 by Hung Matthews MD) CAD (coronary artery disease) Chronic kidney disease (CKD), stage III (moderate) Dementia Diabetes mellitus, type 2 Gout Hearing deficit Hyperlipidemia Hypertension CAMARILLO (nonalcoholic steatohepatitis) On anticoagulant therapy on plavix Osteoarthritis Pacemaker 05/2018 @ [facility] by Dr. Abby Bustamante PAD (peripheral artery disease) Sleep apnea CPAP--doesn't used as ordered Surgical History History of bilateral cataract extraction History of cardiac cath x2----no stents History of colonoscopy History of coronary angioplasty 1985 History of esophagogastroduodenoscopy (EGD) History of lumbar fusion hardware in place History of tonsillectomy History of tooth extraction S/P CABG x 3 1999 @ [facility] S/P peripheral artery angioplasty with stent placement x2-- (total of 2 stents) Family History Mother Family history of diabetes mellitus Social History Smoking Status: Former smoker Second Hand Exposure: Yes (father smoked); Do You Dip or Chew Tobacco: No; Hx Alcohol Use: Yes Alcohol type: wine Hx Substance Use: No Preferred Language: Greek Communication Ability: Effective Ore Fielder Required: No Beliefs That Will Affect Care: None Current Living Situation: Spouse Feels Safe at Home: Yes Assistive Devices: Hearing Aid - Bilateral and Walker Review of Systems Review of Systems: All systems reviewed & are unremarkable except as noted in HPI & below Physical Exam Constitutional: well developed and well nourished Eyes: EOM intact bilaterally and + periorbital abnormality (mild periorbital edema) ENMT: Ears: no external ear abnormality Nose: no external nose abnormality Mouth: + dry oral mucous membranes Neck: no nuchal rigidity Respiratory: normal respiratory effort Auscultation: + diminished lung sounds Cardiovascular: RRR, no murmur, no edema Gastrointestinal (Abdomen): Inspection/Auscultation: normal bowel sounds Percussion/Palpation: abdomen soft; abdomen nontender Musculoskeletal: Extremities: strength 5/5 throughout Skin: no rashes, warm and dry Neurologic: mota, fluent speech, no tremor Psychiatric: Orientation: alert, oriented to person and oriented to place Speech: normal rate/rhythm/volume of speech Insight: + limited insight Judgment: + limited judgement Results & Data Vital Signs (Past 12 Hours) Vital Signs Pulse Pulse Resp BP BP Pulse Ox Pulse Ox 04/30/23 08:04 60 16 148/72 H 96 04/30/23 08:02 60 16 148/72 H 97 04/30/23 07:40 60 18 98 04/30/23 06:30 60 20 123/63 94 04/30/23 06:00 60 19 95 04/30/23 05:30 60 17 152/62 H 95 04/30/23 05:00 60 19 140/72 04/30/23 04:31 60 22 119/57 L 04/30/23 04:30 60 15 04/30/23 04:00 60 15 107/64 04/30/23 03:30 60 15 103/54 L 85 L 04/30/23 06:17 04/30/23 03:00 60 18 04/30/23 02:30 60 20 126/58 L 66 L 04/30/23 02:00 60 18 121/63 96 04/30/23 01:30 62 21 120/87 95 04/30/23 01:19 60 20 109/66 96 04/30/23 01:27 97 04/30/23 03:02 60 19 96 04/30/23 01:27 60 O2 Del Method O2 Del Method FiO2 04/30/23 08:04 CPAP 04/30/23 08:02 CPAP 04/30/23 07:40 04/30/23 06:30 04/30/23 06:00 04/30/23 05:30 04/30/23 05:00 04/30/23 04:31 04/30/23 04:30 04/30/23 04:00 04/30/23 03:30 04/30/23 06:17 CPAP 04/30/23 03:00 04/30/23 02:30 04/30/23 02:00 04/30/23 01:30 04/30/23 01:19 04/30/23 01:27 Room Air 04/30/23 03:02 21 04/30/23 01:27 Laboratory Results 04/30/23 00:39 04/29/23 20:[address] abdomen pelvis Noncon 1. No evidence for bowel obstruction. Evaluation of the bowel mucosa is limited without contrast. No definite focal asymmetry. No diverticulitis. Mild stool burden. No free intraperitoneal fluid or pneumoperitoneum. 2. No other significant abnormality in the left upper quadrant to suggest the patient's reported clinical symptoms. (No stones or hydronephrosis or other renal anomalies) Chest CT Noncon No pulmonary contusive injury. Diminished lung volumes with curvilinear changes in the inferior lingular segments and bilateral lower lobes. Suspect subsegmental atelectasis. No pleural effusion or pneumothorax. No other evidence for significant acute traumatic injury involving the unenhanced chest/thorax. C-spine and head CT both without acute process
[2023-04-30] MEDS ORDERED: LANTUS PER UNIT CHARGE SQ SCH (21:00)
[2023-04-30] MEDS: ROSUVASTATIN CALCIUM 5 MG TAB PO SCH (23:27)
--- NOTE | 2023-05-01 08:04 | Hospitalist Progress Note ---
Date of Service May 01, 2023 Assessment & Plan (1) Ground-level fall: Plan: Resulting in head and chest injury. History ambulatory dysfunction Kidney dysfunction Possible new baseline Baseline creatinine of 1.7 from 2020 Reviewed records from [place] - Cr 3.2 and 1.9 in November 2022 Received IVF, holding losartan, home diuretics, discussed w/ nephrology Now Cr improved and back to baseline New onset anemia anemia work-up, transfuse PRBC if hemoglobin less than 8 and for symptomatic anemia Appropriate to hold Plavix for now given bruising from injury, resume once hemoglobin stable Medical telemetry Follow urine CS, patient requesting to hold off on antibiotics initially on admission ( gives history of patient being placed on multiple courses of antibiotics that never cleared his urine because patient was colonized as per physician explanation.) Urine cultx positive for GNB Discussed that given pt's somnolence , weakness, and LILA - may be d/t untreated infection and pt and agreed to start empiric antibiotics started ceftriaxone Chronic conditions hx CAD status post CABG hx PAD status post stent SSS status post PPM hypertension, BP on the lower side hyperlipidemia statin Rx DM2 insulin requiring, well-controlled as of last outpatient hemoglobin A1c of 6.2 in 2020 Basal bolus insulin, ISS BG goal 1 10-1 40, carb count coverage, update hemoglobin A1c BRIAN CPAP noncompliance dementia Asymptomatic pyuria, patient not septic hx BPH status post surgery past tobacco abuse PT OT eval Delirium precautions DVT prophylaxis. TEDS (SCDs contraindicated by history PAD) Full code Patient's - Ms. Kimi Larios, contact #[phone]. Admission and Anticipated Discharge Date Admission Date: April 30, 2023 Subjective Pt seen in follow up after fall, LILA Pt is quite somnolent today but arousable and able to answer simple questions appropriately Pt's is present at the bedside Cr now improved and down to baseline Records reviewed from [place] - Cr in 11/2022 was 3.2 and 1.9 Pt says he has been having some issues w/ urination lately. Pt's reports ongoing weakness and loss of interest. Discussed that w/ his weakness, somnolence, elev. Cr and abnormal UA - may try to treat this as UTI (not just colonization). Pt and in agreement to start empiric antibiotic Review of Systems Review of Systems: All systems reviewed & are unremarkable except as noted in Subjective Physical Exam Physical Exam: GENERAL: WD/WN in NAD HEENT: NC/AT. faint ecchymosis forehead, EOMI NECK : Supple, short neck, no tenderness CHEST : CTA, left subcostal tenderness HEART : RRR, no obvious murmurs ABDOMEN: Some distention, nontender, + BS EXTREMITIES : Minimal LE swelling, no LE tenderness, moves extremities SKIN: warm, dry NEUROLOGIC : drowsy but arousable, answers simple questions appropriately, no facial asymmetry, moves extremities Results & Data Results & Data Vital Signs (Past 12 Hours) Vital Signs Temp Pulse Pulse Resp BP BP Pulse Ox 05/01/23 07:40 36.6 C 49 L 16 173/68 H 96 05/01/23 07:30 64 05/01/23 03:04 36.5 C 74 18 175/67 H 95 04/30/23 21:59 64 04/30/23 21:30 04/30/23 23:13 36.7 C 60 18 184/50 H 96 O2 Del Method 05/01/23 07:40 Room Air 05/01/23 07:30 05/01/23 03:04 Room Air 04/30/23 21:59 04/30/23 21:30 Room Air 04/30/23 23:13 Room Air Laboratory Results 05/01/23 05/01/23 05/01/23 Range/Units 11:56 11:54 08:34 WBC (4.8-10.8) K/ul RBC (4.70-6.10) M/uL Hgb (14.0-18.0) g/dl Hct (42.0-52.0) % MCV (80.0-100.0) fL MCH (25.0-34.0) pg MCHC (32.0-36.0) g/dL RDW Std Deviation (36.4-46.3) fL RDW Coeff of Dave (11.5-14.5) % Plt Count (130-400) K/uL MPV (9.4-12.4) fL Sodium 140 (136-145) mmol/L Potassium 4.4 (3.5-5.1) mmol/L Chloride 109 H (98-107) mmol/L Carbon Dioxide 26 (21-32) mmol/L Anion Gap 5 (3-11) BUN 35 H D (6-23) mg/dl Creatinine 1.72 H D (0.6-1.4) mg/dl Est Cr Clr Drug Dosing 28.9 ml/min Est GFR ( Amer) 40.8 ml/min Est GFR (Non-Af Amer) 35.2 ml/min BUN/Creatinine Ratio 20.3 H (10-20) Glucose 159 H (70-99(Fasting)) mg/dl POC Glucose 321 H* 367 H* (70-99) mg/dl Calcium 9.3 (8.6-10.3) mg/dl Phosphorus 2.8 (2.5-4.9) mg/dl Magnesium 2.0 (1.7-2.4) mg/dl 05/01/23 05/01/23 04/30/23 Range/Units 08:34 08:19 20:05 WBC 9.29 (4.8-10.8) K/ul RBC 3.88 L (4.70-6.10) M/uL Hgb 12.8 L (14.0-18.0) g/dl Hct 37.2 L (42.0-52.0) % MCV 95.9 (80.0-100.0) fL MCH 33.0 (25.0-34.0) pg MCHC 34.4 (32.0-36.0) g/dL RDW Std Deviation 53.3 H (36.4-46.3) fL RDW Coeff of Dave 15.3 H (11.5-14.5) % Plt Count 157 (130-400) K/uL MPV 11.6 (9.4-12.4) fL Sodium (136-145) mmol/L Potassium (3.5-5.1) mmol/L Chloride (98-107) mmol/L Carbon Dioxide (21-32) mmol/L Anion Gap (3-11) BUN (6-23) mg/dl Creatinine (0.6-1.4) mg/dl Est Cr Clr Drug Dosing ml/min Est GFR ( Amer) ml/min Est GFR (Non-Af Amer) ml/min BUN/Creatinine Ratio (10-20) Glucose (70-99(Fasting)) mg/dl POC Glucose 156 H 164 H (70-99) mg/dl Calcium (8.6-10.3) mg/dl Phosphorus (2.5-4.9) mg/dl Magnesium (1.7-2.4) mg/dl 04/30/23 Range/Units 17:04 WBC (4.8-10.8) K/ul RBC (4.70-6.10) M/uL Hgb (14.0-18.0) g/dl Hct (42.0-52.0) % MCV (80.0-100.0) fL MCH (25.0-34.0) pg MCHC (32.0-36.0) g/dL RDW Std Deviation (36.4-46.3) fL RDW Coeff of Dave (11.5-14.5) % Plt Count (130-400) K/uL MPV (9.4-12.4) fL Sodium (136-145) mmol/L Potassium (3.5-5.1) mmol/L Chloride (98-107) mmol/L Carbon Dioxide (21-32) mmol/L Anion Gap (3-11) BUN (6-23) mg/dl Creatinine (0.6-1.4) mg/dl Est Cr Clr Drug Dosing ml/min Est GFR ( Amer) ml/min Est GFR (Non-Af Amer) ml/min BUN/Creatinine Ratio (10-20) Glucose (70-99(Fasting)) mg/dl POC Glucose 150 H (70-99) mg/dl Calcium (8.6-10.3) mg/dl Phosphorus (2.5-4.9) mg/dl Magnesium (1.7-2.4) mg/dl Medications Administered Current Inpatient Medications Allopurinol ([facility]opurinol 100 Mg Tab) [facility] [place]: 05/30/23 08:59 Last Admin: 04/30/23 10:01 Dose: 100 mg Dextrose (Dextrose 50% 50 Ml Syringe) 25 - 50 ml IV UD PRN; Protocol PRN Reason: Hypoglycemia Protocol Stop: 05/30/23 01:26 Glucagon (Glucagon For Inj 1 Mg Vial) 1 mg SQ UD PRN; Protocol PRN Reason: Hypoglycemia Protocol Stop: 05/30/23 01:26 Glucose (Glucose 10 Tab/Tube) 4 - 8 tab PO UD PRN; Protocol PRN Reason: Hypoglycemia Treatment Stop: 05/30/23 01:26 Glucose (Glucose 40% Gel 15 Gm Tube) 15 - 30 gm PO UD PRN; Protocol PRN Reason: Hypoglycemia Protocol Stop: 05/30/23 01:26 Promethazine HCl 6.25 mg/ (Sodium Chloride) 50.25 mls @ 201 mls/hr IV Q6H PRN PRN Reason: Nausea And Vomiting Stop: 05/30/23 00:24 Insulin Aspart (Insulin Aspart Per Unit Charge) 0 units SC ACHS JANINE Stop: 05/30/23 01:59 Last Admin: 04/30/23 23:15 Dose: 1 units Insulin Glargine (Lantus Per Unit Charge) 5 units SQ HS JANINE Stop: 05/30/23 20:59 Last Admin: 04/30/23 23:16 Dose: 5 units Miconazole Nitrate (Miconazole Nitrate Powder 85 Gm) 1 appln EXT PRN PRN PRN Reason: Affected Skin Folds Stop: 05/30/23 18:46 Miscellaneous (Carbohydrates For Hypoglycemia ) 15 - 30 gm PO UD PRN PRN Reason: Hypoglycemia Protocol Stop: 05/30/23 01:26 Pantoprazole Sodium (Pantoprazole 40 Mg Tab) [address] [facility]; Protocol Stop: 05/30/23 08:59 Last Admin: 04/30/23 23:27 Dose: 40 mg Ranolazine (Ranolazine 500 Mg Er Tab) 500 mg PO BID JANINE Stop: 05/30/23 08:59 Last Admin: 04/30/23 23:27 Dose: 500 mg Rosuvastatin Calcium (Rosuvastatin Calcium 5 Mg Tab) 5 mg PO QPM JANINE Stop: 05/30/23 20:59 Last Admin: 04/30/23 23:27 Dose: 5 mg Tamsulosin HCl (Tamsulosin Hcl 0.4 Mg Cap) 0.4 mg PO DAILY JANINE Stop: 05/30/23 08:59 Last Admin: 04/30/23 10:01 Dose: 0.4 mg Tramadol HCl (Tramadol Hcl 50 Mg Tablet) 25 - 50 mg PO Q4H PRN PRN Reason: Pain Stop: 05/30/23 00:24
[2023-05-01] MEDS: allopurinoL 100 MG TAB PO SCH (08:24)
[2023-05-01] MEDS: TAMSULOSIN HCL 0.4 MG CAP PO SCH (08:24)
[2023-05-01] MEDS: RANOLAZINE 500 MG ER TAB PO SCH ×2 (08:24→21:14)
[2023-05-01] MEDS: PANTOprazole 40 MG TAB PO SCH ×2 (08:24→21:15)
[2023-05-01 08:55] LABS: Hematocrit (blood only) 37.2 % (42.0-52.0); Hemoglobin 12.8 g/dl (14.0-18.0); Mean Corpuscular Hgb Conc 34.4 g/dL (32.0-36.0); Mean Corpuscular Volume 95.9 fL (80.0-100.0); Mean Platelet Volume 11.6 fL (9.4-12.4); Platelet Count 157 K/uL (130-400); RDW Coefficient of Variation 15.3 % (11.5-14.5); RDW Standard Deviation 53.3 fL (36.4-46.3); Red Blood Count 3.88 M/uL (4.70-6.10); White Blood Count 9.29 K/ul (4.8-10.8)
[2023-05-01 09:23] LABS: BUN Creatinine Ratio 20.3 (10-20); Calcium 9.3 mg/dl (8.6-10.3); Creatinine Clr Calc Pharmacy 28.9 ml/min; Est GFR (African American) 40.8 ml/min; Est GFR (Non-African American) 35.2 ml/min; Phosphorus 2.8 mg/dl (2.5-4.9); Potassium 4.4 mmol/L (3.5-5.1)
[2023-05-01] MEDS: INSULIN ASPART PER UNIT CHARGE SC SCH ×4 (09:50→20:39)
[2023-05-01] MEDS: MICONAZOLE NITRATE POWDER 85 GM EXT PRN (11:56)
[2023-05-01] MEDS ORDERED: PHARMACY GLYCEMIC MGMT CONSULT PRN (12:14)
--- NOTE | 2023-05-01 12:25 | Nephrology Progress Note ---
Date of Service May 01, 2023 Assessment & Plan (1) Acute kidney injury superimposed on chronic kidney disease: Plan: LILA on CKD 3b/4 versus progression of CKD. Last known baseline 1.7-2.14 November 2020. per primary service, pt creatinine in November 2022 was 3.2 and 1.9. Back to baseline today w/ creat 1.7. chemistries and volume status for now acceptable. -unless sob, continue to hold lasix and losartan -daily bmp -ordered daily bladder scan to continue -avoid empiric abtx given chronic bacteriuria -encourage po intake defer to primary service to evaluate delirium/visual hallucinations. Admission and Anticipated Discharge Date Admission Date: April 30, 2023 Subjective pt w/o PVR; denies voiding concerns. some confusion. reports when I saw him at about 1415 that he was seeing bugs /ants on ceiling. at bedside. pt tells me he's been out today; does tell me he doesn't feel "right" -- no pain or n/v or sob. minimal po today Review of Systems Review of Systems: All systems reviewed & are unremarkable except as noted in Subjective Physical Exam Constitutional: well developed and well nourished Eyes: EOM intact bilaterally and + periorbital abnormality (mild periorbital edema) ENMT: Ears: no external ear abnormality Nose: no external nose abnormality Mouth: + dry oral mucous membranes Neck: no nuchal rigidity Respiratory: normal respiratory effort Auscultation: + diminished lung sounds Cardiovascular: RRR, no murmur, no edema Gastrointestinal (Abdomen): Inspection/Auscultation: normal bowel sounds Percussion/Palpation: abdomen soft; abdomen nontender Musculoskeletal: Extremities: strength 5/5 throughout Skin: no rashes, warm and dry Psychiatric: Orientation: alert, oriented to person and oriented to place Speech: normal rate/rhythm/volume of speech Insight: + limited insight Judgment: + limited judgement Results & Data Vital Signs (Past 12 Hours) Vital Signs Temp Pulse Pulse Resp BP BP Pulse Ox 05/01/23 11:35 36.8 C 59 L 16 153/67 H 94 05/01/23 07:40 36.6 C 49 L 16 173/68 H 96 05/01/23 07:30 64 05/01/23 03:04 36.5 C 74 18 175/67 H 95 O2 Del Method 05/01/23 11:35 Room Air 05/01/23 07:40 Room Air 05/01/23 07:30 05/01/23 03:04 Room Air Laboratory Results 05/01/23 08:34 05/01/23 08:34
[2023-05-01] MEDS ORDERED: LANTUS PER UNIT CHARGE SQ ONE (12:30)
--- NOTE | 2023-05-01 14:03 | Pharmacy Report ---
Pharmacy Glycemic Short Note 2 - Date of Service May 01, 2023 - Glycemic Short BSG Results (Last 24 hours): 04/30/23 04/30/23 05/01/23 17:04 20:05 08:19 Glucose POC Glucose 150 H 164 H 156 H 05/01/23 05/01/23 05/01/23 08:34 11:54 11:56 Glucose 159 H POC Glucose 367 H* 321 H* OUTPATIENT ANTIDIABETIC REGIMEN: * Lantus 36 units HS * Novolog 16-20 units with breakfast, 18 units with lunch, 20 units with dinner * HbA1C = 6.4% (04/29/23) ASSESSMENT: * Mr Larios is an 88 y/o M with a PMH of T2DM who presents with a fall. Patient's BSGs yesterday were 120-150-164 mg/dL. Patient received Lantus 5 units and 4 units of Novolog (NPO for part of the day). * BSGs today are 156-367/321 mg/dl. * Pharmacy consulted with BSGs > 300 mg/dL. * For Lantus, will give 10 units now then 25 units tonight to equal home dose of roughly 35 units. * Tighten Novolog to weight-based stress of 3 / regimen recommended by home dose of 94 units/day. PLAN FOR INPATIENT GLYCEMIC CONTROL: * Basal insulin * Lantus 10 units SQ x 1 then 25 units tonight. Continue roughly 35 units nightly thereafter * Bolus insulin * NovoLog per scale ACHS or Q6hrs while NPO * Goal Range: Low 110 mg/dL - High 140 mg/dL * Correction Factor: 18 mg/dL/unit * Nutritional / Prandial insulin per carb ratio of 1 unit per 6 grams CHO consumed
[2023-05-01] MEDS ORDERED: cefTRIAXone SODIUM 1,000 MG in DEXTROSE 5% AD-VAN 50 ML IV SCH (17:30)
[2023-05-01] MEDS: cefTRIAXone SODIUM 2,000 MG in DEXTROSE 5% 50 ML IV SCH (18:10)
[2023-05-01] MEDS: LANTUS PER UNIT CHARGE SC SCH (21:14)
[2023-05-01] MEDS: ROSUVASTATIN CALCIUM 5 MG TAB PO SCH (21:15)
[2023-05-02 03:47] LABS: Appearance Urine Cloudy (Clear); Bacteria Urine Automated Negative (Negative); Bilirubin Urine Negative (Negative); Blood Urine 1+ (Negative); Cast Urine Automated 0 /lpf (0-5); Color Urine Yellow; Epithelial Cell Urine Auto 0-5 /lpf (0-5); Glucose Urine UA Negative (Negative); Ketones Urine Negative (Negative); Leukocyte Esterase Urine 3+ (Negative); Nitrite Urine Negative (Negative); Protein Urine 2+ (Negative); RBC Urine Automated 0-4 /hpf (0-4); Specific Gravity Urine 1.016 (1.000-1.030); Urobilinogen Urine Negative (Negative); WBC Urine Automated >30 /hpf (0-5)
[2023-05-02 07:11] LABS: Hematocrit (blood only) 36.5 % (42.0-52.0); Hemoglobin 12.6 g/dl (14.0-18.0); Mean Corpuscular Hemoglobin 33.3 pg (25.0-34.0); Mean Corpuscular Hgb Conc 34.5 g/dL (32.0-36.0); Mean Corpuscular Volume 96.6 fL (80.0-100.0); Mean Platelet Volume 11.6 fL (9.4-12.4); Platelet Count 154 K/uL (130-400); RDW Coefficient of Variation 15.2 % (11.5-14.5); RDW Standard Deviation 53.1 fL (36.4-46.3); Red Blood Count 3.78 M/uL (4.70-6.10); White Blood Count 12.23 K/ul (4.8-10.8)
[2023-05-02 08:24] LABS: BUN Creatinine Ratio 19.2 (10-20); Calcium 9.1 mg/dl (8.6-10.3); Creatinine Clr Calc Pharmacy 29.8 ml/min; Est GFR (African American) 42.3 ml/min; Est GFR (Non-African American) 36.5 ml/min; Magnesium 1.9 mg/dl (1.7-2.4); Phosphorus 2.8 mg/dl (2.5-4.9)
[2023-05-02] MEDS: allopurinoL 100 MG TAB PO SCH (09:57)
[2023-05-02] MEDS: PANTOprazole 40 MG TAB PO SCH ×2 (09:57→20:47)
[2023-05-02] MEDS: INSULIN ASPART PER UNIT CHARGE SC SCH ×4 (09:57→21:12)
[2023-05-02] MEDS: RANOLAZINE 500 MG ER TAB PO SCH ×2 (09:57→20:47)
[2023-05-02] MEDS: TAMSULOSIN HCL 0.4 MG CAP PO SCH (09:58)
--- NOTE | 2023-05-02 12:34 | Nephrology Progress Note ---
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 Last known baseline in [place] 1.7-2.14 November 2020. per primary service, pt creatinine in November 2022 was 3.2 and 1.9. Remains at baseline today w/ creat 1.7. chemistries and volume status for now acceptable. today I resumed losartan at half of his regular 50 mg bid dose (25 mg bid) >> given crackles on exam and BP trends will increase losartan to 50 mg this evening (to promote sleep) then in am hold losartan and give 80 mg po lasix bid17 starting AM tomorrow -daily bmp -ordered daily bladder scan to continue -avoid empiric abtx given chronic bacteriuria -encourage po intake WILL SIGN OFF. NEPHRO D/C RECS -needs to est w/ [facility] PCP (recommend [facility] where they used to see Dr Horn) w/in a week of d/c -new PCP to check bmp > if concerns can f/u w/ nephro; PCP should contact us and we will facilitate eval -recommend d/c on lasix and hold losartan unless/until renal function has been stable for a few days back on lasix then resume losartan as well Admission and Anticipated Discharge Date Admission Date: May 01, 2023 Subjective no interval events. doing a bit better today > eating , no longer hallucinating. denies n/v, issues voiding. pt tells me they plan to be in area until late june Review of Systems Review of Systems: All systems reviewed & are unremarkable except as noted in Subjective Physical Exam Constitutional: well developed and well nourished Eyes: EOM intact bilaterally and + periorbital abnormality (mild periorbital edema) ENMT: Ears: no external ear abnormality Nose: no external nose abnormality Mouth: + dry oral mucous membranes Neck: no nuchal rigidity Respiratory: normal respiratory effort Auscultation: + diminished lung sounds and + crackles (bibasilar) Cardiovascular: RRR, no murmur, no edema Gastrointestinal (Abdomen): Inspection/Auscultation: normal bowel sounds Percussion/Palpation: abdomen soft; abdomen nontender Musculoskeletal: Extremities: strength 5/5 throughout Skin: no rashes, warm and dry Psychiatric: Orientation: alert, oriented to person and oriented to place Speech: normal rate/rhythm/volume of speech Insight: + limited insight Judgment: + limited judgement Results & Data Vital Signs (Past 12 Hours) Vital Signs Temp Pulse Pulse Resp BP BP Pulse Ox 05/02/23 11:28 36.4 C L 59 L 18 153/63 H 96 05/02/23 07:56 36.9 C 67 16 105/64 92 05/02/23 07:27 60 05/02/23 03:12 36.4 C L 60 18 158/67 H 95 05/02/23 01:38 60 O2 Del Method 05/02/23 11:28 Room Air 05/02/23 07:56 Room Air 05/02/23 07:27 05/02/23 03:12 Room Air 05/02/23 01:38 Laboratory Results 05/02/23 06:21 05/02/23 06:21
--- NOTE | 2023-05-02 12:38 | Pharmacy Report ---
Pharmacy Glycemic Short Note 2 - Date of Service May 02, 2023 - Glycemic Short BSG Results (Last 24 hours): 05/01/23 05/01/23 05/02/23 17:20 20:04 06:21 Glucose 108 H POC Glucose 107 H 112 H 05/02/23 07:50 Glucose POC Glucose 106 H OUTPATIENT ANTIDIABETIC REGIMEN: * Lantus 36 units HS * Novolog 16-20 units with breakfast, 18 units with lunch, 20 units with dinner * HbA1C = 6.4% (04/29/23) ASSESSMENT: 05/02/23 * Patient's BSGs yesterday were 156-367/321-107-112 mg/dL. Patient received 51 units of insulin (35 units of basal and 16 units of bolus). * Fasting today is 106 mg/dL. * Continue Lantus 25 units nightly. (Patient received 35 units yesterday due to basal deficiency) * Loosen CF. BACKGROUND * Mr Larios is an 88 y/o M with a PMH of T2DM who presents with a fall. Patient's BSGs yesterday were 120-150-164 mg/dL. Patient received Lantus 5 units and 4 units of Novolog (NPO for part of the day). * BSGs today are 156-367/321 mg/dl. * Pharmacy consulted with BSGs > 300 mg/dL. * For Lantus, will give 10 units now then 25 units tonight to equal home dose of roughly 35 units. * Tighten Novolog to weight-based stress of 3 / regimen recommended by home dose of 94 units/day. PLAN FOR INPATIENT GLYCEMIC CONTROL: * Basal insulin * Lantus 25 units SQ HS * Bolus insulin * NovoLog per scale ACHS or Q6hrs while NPO * Goal Range: Low 110 mg/dL - High 140 mg/dL * Correction Factor: 21 mg/dL/unit * Nutritional / Prandial insulin per carb ratio of 1 unit per 6 grams CHO consumed
[2023-05-02] MEDS ORDERED: LOSARTAN POTASSIUM 25 MG TAB PO SCH (12:40)
[2023-05-02] MEDS: cefTRIAXone SODIUM 2,000 MG in DEXTROSE 5% 50 ML IV SCH (18:02)
--- NOTE | 2023-05-02 19:49 | Hospitalist Progress Note ---
Date of Service May 02, 2023 Assessment & Plan (1) Ground-level fall: Plan: Resulting in head and chest injury. History ambulatory dysfunction LILA on CKD Baseline creatinine of 1.7 from 2020 Reviewed records from [place] - Cr 3.2 and 1.9 in November 2022 Received IVF, holding losartan, home diuretics, discussed w/ nephrology Now Cr improved and back to baseline Anemia Hgb 12.6 and stable transfuse PRBC if hemoglobin less than 8 and for symptomatic anemia held Plavix on admission given bruising from injury, will resume now UTI Urine cultx positive for Klebsiella per pt's - patient being placed on multiple courses of antibiotics that never cleared his urine because patient was colonized as per physician explanation Discussed that given pt's somnolence , weakness, and LILA - may be d/t untreated infection and pt and agreed to start empiric antibiotics started ceftriaxone yesterday, will cont. Pt appears clinically better today - appears w/ more appetite, little more strength, Cr back to baseline - difficult to say if improved d/t antibiotics at this point Chronic conditions hx CAD status post CABG hx PAD status post stent SSS status post PPM hypertension, BP on the lower side hyperlipidemia statin Rx DM2 insulin requiring, well-controlled as of last outpatient hemoglobin A1c of 6.2 in 2020 Basal bolus insulin, ISS BG goal 1 10-1 40, carb count coverage, update hemoglobin A1c BRIAN CPAP noncompliance dementia Asymptomatic pyuria, patient not septic hx BPH status post surgery past tobacco abuse PT OT eval Delirium precautions DVT prophylaxis. TEDS (SCDs contraindicated by history PAD) Full code Patient's - Ms. Kimi Larios, contact #[phone]. Admission and Anticipated Discharge Date Admission Date: May 01, 2023 Subjective Pt seen in follow up after fall, LILA Pt was quite somnolent yesterday but today he is sitting up in chair, per he was eating and appeared to have more strength He answers simple questions appropriately. denies any hallucinations. Pt's is present at the bedside Cr now improved and down to baseline Records reviewed from [place] - Cr in 11/2022 was 3.2 and 1.9 Review of Systems Review of Systems: All systems reviewed & are unremarkable except as noted in Subjective Physical Exam Physical Exam: GENERAL: WD/WN in NAD HEENT: NC/AT. faint ecchymosis forehead, EOMI NECK : Supple, short neck, no tenderness CHEST : CTA, left subcostal tenderness HEART : RRR, no obvious murmurs ABDOMEN: Some distention, nontender, + BS EXTREMITIES : Minimal LE swelling, no LE tenderness, moves extremities SKIN: warm, dry NEUROLOGIC : awake and alert, answers simple questions appropriately, no facial asymmetry, moves extremities Results & Data Results & Data Vital Signs (Past 12 Hours) Vital Signs Temp Pulse Pulse Resp BP BP Pulse Ox 05/02/23 15:11 36.5 C 60 17 154/70 H 97 05/02/23 15:13 61 05/02/23 08:00 05/02/23 11:28 36.4 C L 59 L 18 153/63 H 96 05/02/23 07:56 36.9 C 67 16 105/64 92 O2 Del Method 05/02/23 15:11 Room Air 05/02/23 15:13 05/02/23 08:00 Room Air 05/02/23 11:28 Room Air 05/02/23 07:56 Room Air Laboratory Results 05/02/23 05/02/23 05/02/23 Range/Units 17:06 12:45 07:50 WBC (4.8-10.8) K/ul RBC (4.70-6.10) M/uL Hgb (14.0-18.0) g/dl Hct (42.0-52.0) % MCV (80.0-100.0) fL MCH (25.0-34.0) pg MCHC (32.0-36.0) g/dL RDW Std Deviation (36.4-46.3) fL RDW Coeff of Dave (11.5-14.5) % Plt Count (130-400) K/uL MPV (9.4-12.4) fL Sodium (136-145) mmol/L Potassium (3.5-5.1) mmol/L Chloride (98-107) mmol/L Carbon Dioxide (21-32) mmol/L Anion Gap (3-11) BUN (6-23) mg/dl Creatinine (0.6-1.4) mg/dl Est Cr Clr Drug Dosing ml/min Est GFR ( Amer) ml/min Est GFR (Non-Af Amer) ml/min BUN/Creatinine Ratio (10-20) Glucose (70-99(Fasting)) mg/dl POC Glucose 179 H 244 H 106 H (70-99) mg/dl Calcium (8.6-10.3) mg/dl Phosphorus (2.5-4.9) mg/dl Magnesium (1.7-2.4) mg/dl Urine Color Urine Appearance (Clear) Urine pH (4.5-7.5) Ur Specific [place] (1.000-1.030) Urine Protein (Negative) Urine Glucose (UA) (Negative) Urine Ketones (Negative) Urine Blood (Negative) Urine Nitrite (Negative) Urine Bilirubin (Negative) Urine Urobilinogen (Negative) Ur Leukocyte Esterase (Negative) Urine WBC (Auto) (0-5) /hpf Urine RBC (Auto) (0-4) /hpf U Hyaline Cast (Auto) (0-5) /lpf U Epithel Cells (Auto) (0-5) /lpf Urine Bacteria (Auto) (Negative) 05/02/23 05/02/23 05/02/23 Range/Units 06:21 06:21 03:25 WBC 12.23 H (4.8-10.8) K/ul RBC 3.78 L (4.70-6.10) M/uL Hgb 12.6 L (14.0-18.0) g/dl Hct 36.5 L (42.0-52.0) % MCV 96.6 (80.0-100.0) fL MCH 33.3 (25.0-34.0) pg MCHC 34.5 (32.0-36.0) g/dL RDW Std Deviation 53.1 H (36.4-46.3) fL RDW Coeff of Dave 15.2 H (11.5-14.5) % Plt Count 154 (130-400) K/uL MPV 11.6 (9.4-12.4) fL Sodium 138 (136-145) mmol/L Potassium 4.0 (3.5-5.1) mmol/L Chloride 105 (98-107) mmol/L Carbon Dioxide 27 (21-32) mmol/L Anion Gap 6 (3-11) BUN 32 H (6-23) mg/dl Creatinine 1.67 H (0.6-1.4) mg/dl Est Cr Clr Drug Dosing 29.8 ml/min Est GFR ( Amer) 42.3 ml/min Est GFR (Non-Af Amer) 36.5 ml/min BUN/Creatinine Ratio 19.2 (10-20) Glucose 108 H (70-99(Fasting)) mg/dl POC Glucose (70-99) mg/dl Calcium 9.1 (8.6-10.3) mg/dl Phosphorus 2.8 (2.5-4.9) mg/dl Magnesium 1.9 (1.7-2.4) mg/dl Urine Color Yellow Urine Appearance Cloudy A (Clear) Urine pH 5.0 (4.5-7.5) Ur Specific [place] 1.016 (1.000-1.030) Urine Protein 2+ H (Negative) Urine Glucose (UA) Negative (Negative) Urine Ketones Negative (Negative) Urine Blood 1+ H (Negative) Urine Nitrite Negative (Negative) Urine Bilirubin Negative (Negative) Urine Urobilinogen Negative (Negative) Ur Leukocyte Esterase 3+ H (Negative) Urine WBC (Auto) >30 H (0-5) /hpf Urine RBC (Auto) 0-4 (0-4) /hpf U Hyaline Cast (Auto) 0 (0-5) /lpf U Epithel Cells (Auto) 0-5 (0-5) /lpf Urine Bacteria (Auto) Negative (Negative) 05/01/23 Range/Units 20:04 WBC (4.8-10.8) K/ul RBC (4.70-6.10) M/uL Hgb (14.0-18.0) g/dl Hct (42.0-52.0) % MCV (80.0-100.0) fL MCH (25.0-34.0) pg MCHC (32.0-36.0) g/dL RDW Std Deviation (36.4-46.3) fL RDW Coeff of Dave (11.5-14.5) % Plt Count (130-400) K/uL MPV (9.4-12.4) fL Sodium (136-145) mmol/L Potassium (3.5-5.1) mmol/L Chloride (98-107) mmol/L Carbon Dioxide (21-32) mmol/L Anion Gap (3-11) BUN (6-23) mg/dl Creatinine (0.6-1.4) mg/dl Est Cr Clr Drug Dosing ml/min Est GFR ( Amer) ml/min Est GFR (Non-Af Amer) ml/min BUN/Creatinine Ratio (10-20) Glucose (70-99(Fasting)) mg/dl POC Glucose 112 H (70-99) mg/dl Calcium (8.6-10.3) mg/dl Phosphorus (2.5-4.9) mg/dl Magnesium (1.7-2.4) mg/dl Urine Color Urine Appearance (Clear) Urine pH (4.5-7.5) Ur Specific [place] (1.000-1.030) Urine Protein (Negative) Urine Glucose (UA) (Negative) Urine Ketones (Negative) Urine Blood (Negative) Urine Nitrite (Negative) Urine Bilirubin (Negative) Urine Urobilinogen (Negative) Ur Leukocyte Esterase (Negative) Urine WBC (Auto) (0-5) /hpf Urine RBC (Auto) (0-4) /hpf U Hyaline Cast (Auto) (0-5) /lpf U Epithel Cells (Auto) (0-5) /lpf Urine Bacteria (Auto) (Negative) Medications Administered Current Inpatient Medications Allopurinol (Allopurinol 100 Mg Tab) 100 mg PO QAM JANINE Stop: 05/30/23 08:59 Last Admin: 05/02/23 09:57 Dose: 100 mg Dextrose (Dextrose 50% 50 Ml Syringe) 25 - 50 ml IV UD PRN; Protocol PRN Reason: Hypoglycemia Protocol Stop: 05/30/23 01:26 Glucagon (Glucagon For Inj 1 Mg Vial) 1 mg SQ UD PRN; Protocol PRN Reason: Hypoglycemia Protocol Stop: 05/30/23 01:26 Glucose (Glucose 10 Tab/Tube) 4 - 8 tab PO UD PRN; Protocol PRN Reason: Hypoglycemia Treatment Stop: 05/30/23 01:26 Glucose (Glucose 40% Gel 15 Gm Tube) 15 - 30 gm PO UD PRN; Protocol PRN Reason: Hypoglycemia Protocol Stop: 05/30/23 01:26 Promethazine HCl 6.25 mg/ (Sodium Chloride) 50.25 mls @ 201 mls/hr IV Q6H PRN PRN Reason: Nausea And Vomiting Stop: 05/30/23 00:24 Ceftriaxone Sodium 2,000 mg/ (Dextrose) 70 mls @ 140 mls/hr IV Q24H [facility] Stop: 05/11/23 17:29 Last Infusion: 05/02/23 18:32 Dose: Infused Insulin Aspart (Insulin Aspart Per Unit Charge) 0 units SC ACHS JANINE Stop: 05/30/23 01:59 Last Admin: 05/02/23 18:07 Dose: 12 units Insulin Glargine (Lantus Per Unit Charge) 25 units SC HS JANINE Stop: 05/31/23 20:59 Last Admin: 05/01/23 21:14 Dose: 25 units Losartan Potassium (Losartan Potassium 25 Mg Tab) 25 mg PO BID JANINE Stop: 06/01/23 12:39 Last Admin: 05/02/23 13:41 Dose: 25 mg Miconazole Nitrate (Miconazole Nitrate Powder 85 Gm) 1 appln EXT PRN PRN PRN Reason: Affected Skin Folds Stop: 05/30/23 18:46 Last Admin: 05/01/23 11:56 Dose: 1 appln Miscellaneous (Carbohydrates For Hypoglycemia ) 15 - 30 gm PO UD PRN PRN Reason: Hypoglycemia Protocol Stop: 05/30/23 01:26 Miscellaneous Information (Pharmacy Glycemic Mgmt Consult) 1 each N/A UD PRN; Protocol PRN Reason: Consult Stop: 05/31/23 12:13 Pantoprazole Sodium (Pantoprazole 40 Mg Tab) 40 mg PO BID [facility]; Protocol Stop: 05/30/23 08:59 Last Admin: 05/02/23 09:57 Dose: 40 mg Ranolazine (Ranolazine 500 Mg Er Tab) 500 mg PO BID [facility] Stop: 05/30/23 08:59 Last Admin: 05/02/23 09:57 Dose: 500 mg Rosuvastatin Calcium (Rosuvastatin Calcium 5 Mg Tab) 5 mg PO QPM JANINE Stop: 05/30/23 20:59 Last Admin: 05/01/23 21:15 Dose: 5 mg Tamsulosin HCl (Tamsulosin Hcl 0.4 Mg Cap) 0.4 mg PO DAILY JANINE Stop: 05/30/23 08:59 Last Admin: 05/02/23 09:58 Dose: 0.4 mg Tramadol HCl (Tramadol Hcl 50 Mg Tablet) 25 - 50 mg PO Q4H PRN PRN Reason: Pain Stop: 05/30/23 00:24
[2023-05-02] MEDS: ROSUVASTATIN CALCIUM 5 MG TAB PO SCH (20:47)
[2023-05-02] MEDS: ASPIRIN 81 MG ECTAB PO SCH (20:48)
[2023-05-02] MEDS ORDERED: LOSARTAN POTASSIUM 50 MG TAB PO ONE (21:00)
[2023-05-02] MEDS: LANTUS PER UNIT CHARGE SC SCH (21:17)
[2023-05-03 06:13] LABS: Hematocrit (blood only) 35.9 % (42.0-52.0); Hemoglobin 12.2 g/dl (14.0-18.0); Mean Corpuscular Hemoglobin 32.4 pg (25.0-34.0); Mean Corpuscular Volume 95.2 fL (80.0-100.0); Mean Platelet Volume 11.2 fL (9.4-12.4); Platelet Count 162 K/uL (130-400); RDW Coefficient of Variation 15.1 % (11.5-14.5); RDW Standard Deviation 51.3 fL (36.4-46.3); Red Blood Count 3.77 M/uL (4.70-6.10); White Blood Count 8.35 K/ul (4.8-10.8)
[2023-05-03 06:29] LABS: BUN Creatinine Ratio 20.7 (10-20); Creatinine Clr Calc Pharmacy 25.9 ml/min; Est GFR (African American) 35.5 ml/min; Est GFR (Non-African American) 30.6 ml/min; Potassium 4.2 mmol/L (3.5-5.1)
--- NOTE | 2023-05-03 07:51 | Hospitalist Progress Note ---
Date of Service May 03, 2023 Assessment & Plan (1) Ground-level fall: Plan: Resulting in head and chest injury. History ambulatory dysfunction LILA on CKD Baseline creatinine of 1.7 from 2020 Reviewed records from [place] - Cr 3.2 and 1.9 in November 2022 Received IVF, decreased losartan- now cont. to hold, also hold home lasix diuretics Nephrology consulted - plan to DC on lasix and hold losartan Now Cr improved and essentially back to baseline Anemia Hgb 12.6 and stable transfuse PRBC if hemoglobin less than 8 and for symptomatic anemia held Plavix on admission given bruising from injury, will resume now UTI Urine cultx positive for Klebsiella per pt's - patient being placed on multiple courses of antibiotics that never cleared his urine because patient was colonized as per physician explanation Discussed that given pt's somnolence , weakness, and LILA - may be d/t untreated infection and pt and agreed to start empiric antibiotics started ceftriaxone, will cont. Pt appears clinically better - appears w/ more appetite, little more strength, Cr back to baseline - difficult to say if improved d/t antibiotics at this point Chronic conditions hx CAD status post CABG hx PAD status post stent SSS status post PPM hypertension, BP on the lower side hyperlipidemia statin Rx DM2 insulin requiring, well-controlled as of last outpatient hemoglobin A1c of 6.2 in 2020 Basal bolus insulin, ISS BG goal 1 10-1 40, carb count coverage, update hemoglobin A1c BRIAN CPAP noncompliance dementia Asymptomatic pyuria, patient not septic hx BPH status post surgery past tobacco abuse PT OT eval Delirium precautions DVT prophylaxis. TEDS (SCDs contraindicated by history PAD) Full code Patient's - Ms. Kimi Larios, contact #[phone]. Admission and Anticipated Discharge Date Admission Date: May 01, 2023 Subjective Pt seen in follow up after fall, LILA Pt is sitting up in chair, eating lunch He answers simple questions appropriately. denies any hallucinations. Pt's and son present at the bedside and updated Cr now improved and essentially at baseline Records reviewed from [place] - Cr in 11/2022 was 3.2 and 1.9 Review of Systems Review of Systems: All systems reviewed & are unremarkable except as noted in Subjective Physical Exam Physical Exam: GENERAL: WD/WN in NAD HEENT: NC/AT. faint ecchymosis forehead, EOMI NECK : Supple, short neck, no tenderness CHEST : CTA, left subcostal tenderness HEART : RRR, no obvious murmurs ABDOMEN: Some distention, nontender, + BS EXTREMITIES : Minimal LE swelling, no LE tenderness, moves extremities SKIN: warm, dry NEUROLOGIC : awake and alert, answers simple questions appropriately, no facial asymmetry, moves extremities Results & Data Results & Data Vital Signs (Past 12 Hours) Vital Signs Temp Pulse Pulse Resp BP Pulse Ox O2 Del Method 05/03/23 06:00 63 05/03/23 00:17 36.7 C 61 20 148/70 H 97 Room Air 05/02/23 22:40 64 05/02/23 21:42 Room Air 05/02/23 20:50 36.8 C 69 20 156/74 H 97 Room Air Laboratory Results 05/03/23 05/03/23 05/02/23 Range/Units 05:46 05:46 21:07 WBC 8.35 (4.8-10.8) K/ul RBC 3.77 L (4.70-6.10) M/uL Hgb 12.2 L (14.0-18.0) g/dl Hct 35.9 L (42.0-52.0) % MCV 95.2 (80.0-100.0) fL MCH 32.4 (25.0-34.0) pg MCHC 34.0 (32.0-36.0) g/dL RDW Std Deviation 51.3 H (36.4-46.3) fL RDW Coeff of Dave 15.1 H (11.5-14.5) % Plt Count 162 (130-400) K/uL MPV 11.2 (9.4-12.4) fL Sodium 137 (136-145) mmol/L Potassium 4.2 (3.5-5.1) mmol/L Chloride 105 (98-107) mmol/L Carbon Dioxide 27 (21-32) mmol/L Anion Gap 5 (3-11) BUN 40 H (6-23) mg/dl Creatinine 1.93 H (0.6-1.4) mg/dl Est Cr Clr Drug Dosing 25.9 ml/min Est GFR ( Amer) 35.5 ml/min Est GFR (Non-Af Amer) 30.6 ml/min BUN/Creatinine Ratio 20.7 H (10-20) Glucose 150 H (70-99(Fasting)) mg/dl POC Glucose 109 H (70-99) mg/dl Calcium 9.0 (8.6-10.3) mg/dl Phosphorus 3.0 (2.5-4.9) mg/dl Magnesium 2.0 (1.7-2.4) mg/dl 05/02/23 05/02/23 05/02/23 Range/Units 17:06 12:45 07:50 WBC (4.8-10.8) K/ul RBC (4.70-6.10) M/uL Hgb (14.0-18.0) g/dl Hct (42.0-52.0) % MCV (80.0-100.0) fL MCH (25.0-34.0) pg MCHC (32.0-36.0) g/dL RDW Std Deviation (36.4-46.3) fL RDW Coeff of Dave (11.5-14.5) % Plt Count (130-400) K/uL MPV (9.4-12.4) fL Sodium (136-145) mmol/L Potassium (3.5-5.1) mmol/L Chloride (98-107) mmol/L Carbon Dioxide (21-32) mmol/L Anion Gap (3-11) BUN (6-23) mg/dl Creatinine (0.6-1.4) mg/dl Est Cr Clr Drug Dosing ml/min Est GFR ( Amer) ml/min Est GFR (Non-Af Amer) ml/min BUN/Creatinine Ratio (10-20) Glucose (70-99(Fasting)) mg/dl POC Glucose 179 H 244 H 106 H (70-99) mg/dl Calcium (8.6-10.3) mg/dl Phosphorus (2.5-4.9) mg/dl Magnesium (1.7-2.4) mg/dl 05/02/23 Range/Units 06:21 WBC (4.8-10.8) K/ul RBC (4.70-6.10) M/uL Hgb (14.0-18.0) g/dl Hct (42.0-52.0) % MCV (80.0-100.0) fL MCH (25.0-34.0) pg MCHC (32.0-36.0) g/dL RDW Std Deviation (36.4-46.3) fL RDW Coeff of Dave (11.5-14.5) % Plt Count (130-400) K/uL MPV (9.4-12.4) fL Sodium 138 (136-145) mmol/L Potassium 4.0 (3.5-5.1) mmol/L Chloride 105 (98-107) mmol/L Carbon Dioxide 27 (21-32) mmol/L Anion Gap 6 (3-11) BUN 32 H (6-23) mg/dl Creatinine 1.67 H (0.6-1.4) mg/dl Est Cr Clr Drug Dosing 29.8 ml/min Est GFR ( Amer) 42.3 ml/min Est GFR (Non-Af Amer) 36.5 ml/min BUN/Creatinine Ratio 19.2 (10-20) Glucose 108 H (70-99(Fasting)) mg/dl POC Glucose (70-99) mg/dl Calcium 9.1 (8.6-10.3) mg/dl Phosphorus 2.8 (2.5-4.9) mg/dl Magnesium 1.9 (1.7-2.4) mg/dl Medications Administered Current Inpatient Medications Allopurinol (Allopurinol 100 Mg Tab) 100 mg PO QAM JANINE Stop: 05/30/23 08:59 Last Admin: 05/02/23 09:57 Dose: 100 mg Aspirin (Aspirin 81 Mg Ectab) 81 mg PO QPM JANINE Stop: 06/01/23 20:59 Last Admin: 05/02/23 20:48 Dose: 81 mg Dextrose (Dextrose 50% 50 Ml Syringe) 25 - 50 ml IV UD PRN; Protocol PRN Reason: Hypoglycemia Protocol Stop: 05/30/23 01:26 Furosemide (Furosemide 80 Mg Tab) 80 mg PO [id number] JANINE Stop: 06/02/23 08:59 Glucagon (Glucagon For Inj 1 Mg Vial) 1 mg SQ UD PRN; Protocol PRN Reason: Hypoglycemia Protocol Stop: 05/30/23 01:26 Glucose (Glucose 10 Tab/Tube) 4 - 8 tab PO UD PRN; Protocol PRN Reason: Hypoglycemia Treatment Stop: 05/30/23 01:26 Glucose (Glucose 40% Gel 15 Gm Tube) 15 - 30 gm PO UD PRN; Protocol PRN Reason: Hypoglycemia Protocol Stop: 05/30/23 01:26 Promethazine HCl 6.25 mg/ (Sodium Chloride) 50.25 mls @ 201 mls/hr IV Q6H PRN PRN Reason: Nausea And Vomiting Stop: 05/30/23 00:24 Ceftriaxone Sodium 2,000 mg/ (Dextrose) 70 mls @ 140 mls/hr IV Q24H [facility] Stop: 05/11/23 17:29 Last Infusion: 05/02/23 18:32 Dose: Infused Insulin Aspart (Insulin Aspart Per Unit Charge) 0 units SC ACHS [facility] Stop: 05/30/23 01:59 Last Admin: 05/02/23 21:12 Dose: Not Given Insulin Glargine (Lantus Per Unit Charge) 25 units SC HS [facility] Stop: 05/31/23 20:59 Last Admin: 05/02/23 21:17 Dose: 25 units Miconazole Nitrate (Miconazole Nitrate Powder 85 Gm) 1 appln EXT PRN PRN PRN Reason: Affected Skin Folds Stop: 05/30/23 18:46 Last Admin: 05/01/23 11:56 Dose: 1 appln Miscellaneous (Carbohydrates For Hypoglycemia ) 15 - 30 gm PO UD PRN PRN Reason: Hypoglycemia Protocol Stop: 05/30/23 01:26 Miscellaneous Information (Pharmacy Glycemic Mgmt Consult) 1 each N/A UD PRN; Protocol PRN Reason: Consult Stop: 05/31/23 12:13 Pantoprazole Sodium (Pantoprazole 40 Mg Tab) 40 mg PO BID [facility]; Protocol Stop: 05/30/23 08:59 Last Admin: 05/02/23 20:47 Dose: 40 mg Ranolazine (Ranolazine 500 Mg Er Tab) 500 mg PO BID [facility] Stop: 05/30/23 08:59 Last Admin: 05/02/23 20:47 Dose: 500 mg Rosuvastatin Calcium (Rosuvastatin Calcium 5 Mg Tab) 5 mg PO QPM [facility] Stop: 05/30/23 20:59 Last Admin: 05/02/23 20:47 Dose: 5 mg Tamsulosin HCl (Tamsulosin Hcl 0.4 Mg Cap) 0.4 mg PO DAILY [facility] Stop: 05/30/23 08:59 Last Admin: 05/02/23 09:58 Dose: 0.4 mg Tramadol HCl (Tramadol Hcl 50 Mg Tablet) 25 - 50 mg PO Q4H PRN PRN Reason: Pain Stop: 05/30/23 00:24
[2023-05-03] MEDS: PANTOprazole 40 MG TAB PO SCH ×2 (08:26→21:57)
[2023-05-03] MEDS: traMADol HCL 50 MG TABLET PO PRN (08:26)
[2023-05-03] MEDS: RANOLAZINE 500 MG ER TAB PO SCH ×2 (08:27→21:57)
[2023-05-03] MEDS: TAMSULOSIN HCL 0.4 MG CAP PO SCH (08:27)
[2023-05-03] MEDS: FUROSEMIDE 80 MG TAB PO SCH ×2 (08:28→18:14)
[2023-05-03] MEDS: allopurinoL 100 MG TAB PO SCH (08:28)
[2023-05-03] MEDS: MICONAZOLE NITRATE POWDER 85 GM EXT PRN (08:31)
[2023-05-03] MEDS: INSULIN ASPART PER UNIT CHARGE SC SCH ×4 (09:23→21:57)
[2023-05-03] MEDS: cefTRIAXone SODIUM 2,000 MG in DEXTROSE 5% 50 ML IV SCH (17:57)
[2023-05-03] MEDS: ROSUVASTATIN CALCIUM 5 MG TAB PO SCH (21:56)
[2023-05-03] MEDS: ASPIRIN 81 MG ECTAB PO SCH (21:57)
[2023-05-03] MEDS: LANTUS PER UNIT CHARGE SC SCH (22:01)
[2023-05-04 07:18] LABS: Hematocrit (blood only) 35.5 % (42.0-52.0); Hemoglobin 12.1 g/dl (14.0-18.0); Mean Corpuscular Hemoglobin 32.6 pg (25.0-34.0); Mean Corpuscular Hgb Conc 34.1 g/dL (32.0-36.0); Mean Corpuscular Volume 95.7 fL (80.0-100.0); Mean Platelet Volume 11.6 fL (9.4-12.4); Platelet Count 177 K/uL (130-400); Red Blood Count 3.71 M/uL (4.70-6.10); White Blood Count 7.77 K/ul (4.8-10.8)
[2023-05-04 07:34] LABS: BUN Creatinine Ratio 23.8 (10-20); Creatinine Clr Calc Pharmacy 24.2 ml/min; Est GFR (African American) 32.8 ml/min; Est GFR (Non-African American) 28.3 ml/min; Magnesium 1.9 mg/dl (1.7-2.4); Phosphorus 3.6 mg/dl (2.5-4.9); Potassium 4.1 mmol/L (3.5-5.1)
[2023-05-04] MEDS: traMADol HCL 50 MG TABLET PO PRN (09:12)
[2023-05-04] MEDS: INSULIN ASPART PER UNIT CHARGE SC SCH ×2 (09:12→13:02)
[2023-05-04] MEDS: RANOLAZINE 500 MG ER TAB PO SCH (09:13)
[2023-05-04] MEDS: allopurinoL 100 MG TAB PO SCH (09:13)
[2023-05-04] MEDS: FUROSEMIDE 80 MG TAB PO SCH (09:13)
[2023-05-04] MEDS: MICONAZOLE NITRATE POWDER 85 GM EXT PRN (09:13)
[2023-05-04] MEDS: PANTOprazole 40 MG TAB PO SCH (09:13)
[2023-05-04] MEDS: TAMSULOSIN HCL 0.4 MG CAP PO SCH (09:13)
[2023-05-04] MEDS ORDERED: ADVANCED PROBIOTIC 1250 MG CAPSULE PO SCH (11:00)
[2023-05-04] MEDS ORDERED: LIDOCAINE 5% 1 PATCH TD STA (11:34)
--- NOTE | 2023-05-04 11:49 | Discharge Summary ---
Date of Service May 04, 2023 Admission HPI Per Admitting Provider History obtained from patient, family, and records. Limited history from patient secondary to dementia. Medical history significant for CAD status post CABG, PVD status post stent, SSS status post PPM, hypertension, hyperlipidemia, DM2 insulin requiring, BRIAN CPAP noncompliance, NAFLD, CRI (unknown recent baseline), dementia, BPH, past tobacco abuse. Last [facility] confinement 2017 for sinus node dysfunction status post PPM. Patient and relocated to [place] in 2020. They have been back in town this summer to sort out their belongings at their old home. Patient ambulating not as well the last few weeks as per . Patient fell face forward coming out of an elevator at the [facility] today. Fall witnessed by . No syncope, LOC, witnessed seizures. Patient not any more confused than usual as per . Patient complaining of left-sided chest pain and frontal headache from trauma. Denies dysuria symptoms. Patient brought to the ER for evaluation. 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 Principal Diagnosis LILA, UTI Ambulatory dysfunction Discharge Exam GENERAL: WD/WN in NAD HEENT: NC/AT. faint ecchymosis forehead, EOMI NECK : Supple, short neck, no tenderness CHEST : CTA, left subcostal tenderness (improved) HEART : RRR, no obvious murmurs ABDOMEN: Some distention, nontender, + BS EXTREMITIES : Minimal LE swelling, no LE tenderness, moves extremities SKIN: warm, dry NEUROLOGIC : awake and alert, answers simple questions appropriately, no facial asymmetry, moves extremities Discharge Data Allergies Allergy/AdvReac Type Severity Reaction Status Date / Time morphine Allergy Unknown HIVES Verified 04/29/23 23:13 pollen extracts Allergy Unknown RUNNY EYES Verified 08/25/18 08:00 shellfish derived Allergy Unknown NECK Verified 08/25/18 08:00 SWELLS-30 YRS AGO WITH CRABS atorvastatin AdvReac Mild SHOULDER Verified 04/29/23 23:13 PAIN Consultations 04/29/23 23:08 ED Decision to Admit Stat 04/30/23 06:32 HIM [Consult Health Information Management] Routine 04/30/23 11:36 Consult Nephrology Routine Ordered Studies 04/29/23 20:03 CT cervical spine wo con Stat FINDINGS: Vertebrae: The vertebral bodies are intact without acute osseous traumatic injury. No anterolisthesis or retrolisthesis is identified. The facet joints are well aligned without subluxation or dislocation. The pedicles, transverse processes and spinous processes are intact. Similar multilevel facet hypertrophic changes, right greater than left, similar to the previous examination. Discs/spinal canal/neural foramina: Progressive disc spondylosis degenerative changes, most prominently noted involving the inferior cervical spine at C5-6 through C7-T1. Soft tissues: Unremarkable. IMPRESSION: No acute osseous traumatic injury or significant abnormal alignment involving the cervical spine. Progressive, although chronic appearing degenerative changes noted involving the inferior cervical spine. CT chest without contrast [CT chest diagnostic wo con] Stat FINDINGS: Lungs: No pulmonary contusive injury. Diminished lung volumes with curvilinear changes in the inferior lingular segments and bilateral lower lobes. Pleural space: Unremarkable. No pneumothorax. No significant effusion. Heart: Evidence of previous CABG. No significant pericardial effusion. No significant coronary artery calcifications. Mediastinum: No mediastinal traumatic injury. Bones/joints: No displaced rib fracture identified. The thoracic vertebral bodies demonstrate maintained height without acute traumatic injury. The sternum is intact with sternotomy wires. No dislocation. Soft tissues: Unremarkable. Vasculature: The aorta demonstrates atherosclerotic changes but is normal in caliber. A vein graft is suggested extending from the anterior aorta. A CARDENAS graft is suggested. Extensive coronary artery calcification. No pericardial effusion. No thoracic aortic aneurysm. Lymph nodes: Unremarkable. No enlarged lymph nodes. Tubes, lines and devices: No significant overlying acute traumatic soft tissue abnormality. Incidental cardiac pacer overlying the left pectoralis muscle. A dual lead cardiac pacer is noted. IMPRESSION: No pulmonary contusive injury. Diminished lung volumes with curvilinear changes in the inferior lingular segments and bilateral lower lobes. Suspect subsegmental atelectasis. No pleural effusion or pneumothorax. No other evidence for significant acute traumatic injury involving the unenhanced chest/thorax. CT head/brain wo con Stat FINDINGS: Brain: There are a few areas of decreased attenuation in the deep cerebral white matter consistent with mild small vessel ischemic/degenerative changes. The cerebral and cerebellar sulci are mildly prominent consistent with mild brain atrophy. No hemorrhage. Ventricles: Unremarkable. No ventriculomegaly. Bones/joints: Unremarkable. No acute fracture. Soft tissues: No significant overlying acute traumatic soft tissue abnormality. No radiopaque foreign body. Vasculature: Atherosclerotic disease. Sinuses: Mucoperiosteal sclerosis and opacification of the left maxillary sinus with hyperdense inspissated material internally. The remaining paranasal sinuses are well aerated. Mastoid air cells: Unremarkable as visualized. No mastoid effusion. IMPRESSION: No acute intracranial process or significant alteration from the previous examination. 04/30/23 00:19 CT abd pelvis wo con Stat FINDINGS: Lung bases: Curvilinear changes noted at the lung bases. ABDOMEN: Liver: Unremarkable. Gallbladder and bile ducts: Unremarkable. No calcified stones. No ductal dilation. Pancreas: Unremarkable. No ductal dilation. Spleen: Unremarkable. No splenomegaly. Adrenals: Unremarkable. No mass. Kidneys and ureters: Unremarkable. No obstructing stones. No hydronephrosis. Stomach and bowel: Mild oral contents in the stomach. No gastric mucosal thickening. No evidence for bowel obstruction. Evaluation of the bowel mucosa is limited without contrast. No definite focal asymmetry. No diverticulitis. Mild stool burden. PELVIS: Appendix: A normal caliber appendix is noted posterior and lateral to the cecum. Bladder: Unremarkable. No stones. Reproductive: Unremarkable as visualized. ABDOMEN and PELVIS: Intraperitoneal space: Unremarkable. No free air. No significant fluid collection. Bones/joints: A left total hip arthroplasty is noted. Posterior fusion from L3-L5. Multilevel degenerative changes of the lumbar spine with reversal of the normal lumbar lordosis. No acute osseous abnormality. No dislocation. Soft tissues: Unremarkable. Vasculature: Atherosclerotic calcification of the normal caliber aorta. No acute periaortic abnormality. No abdominal aortic aneurysm. Lymph nodes: Unremarkable. No enlarged lymph nodes. IMPRESSION: 1. No evidence for bowel obstruction. Evaluation of the bowel mucosa is limited without contrast. No definite focal asymmetry. No diverticulitis. Mild stool burden. No free intraperitoneal fluid or pneumoperitoneum. 2. No other significant abnormality in the left upper quadrant to suggest the patient's reported clinical symptoms. Hospital Course (1) Ground-level fall: Resulting in head and chest injury. History ambulatory dysfunction LILA on CKD Baseline creatinine of 1.7 from 2020 Reviewed records from [place] - Cr 3.2 and 1.9 in November 2022 Received IVF, decreased losartan- now cont. to hold, also hold home lasix diuretics Nephrology consulted - plan to DC on lasix and hold losartan - will need BMP within 1 week - at pcp follow up - contact nephrology w/ any questions Now Cr improved and essentially back to baseline, current Cr 2 Anemia Hgb 12.6 and stable transfuse PRBC if hemoglobin less than 8 and for symptomatic anemia held Plavix on admission given bruising from injury, will resume now UTI Urine cultx positive for Klebsiella pneumoniae and Corynebacterium urealyticum per pt's - patient being placed on multiple courses of antibiotics that never cleared his urine because patient was colonized as per physician explanation Discussed that given pt's somnolence , weakness, and LILA - may be d/t untreated infection and pt and agreed to start empiric antibiotics started ceftriaxone, will cont. Pt appears clinically better - appears w/ more appetite, more awake , little more strength, Cr back to baseline - difficult to say if improved d/t antibiotics at this point Discussed w/ ID Dr. Sapp on 05/04 re: Corynebacterium in ucultx - will start and DC on Linezolid. Will also DC on cefuroxime. Pt needs to follow up with PCP and possibly with urology or ID. Chronic conditions hx CAD status post CABG hx PAD status post stent SSS status post PPM hypertension, BP on the lower side hyperlipidemia statin Rx DM2 insulin requiring, well-controlled as of last outpatient hemoglobin A1c of 6.2 in 2020 Basal bolus insulin, ISS BG goal 1 10-1 40, carb count coverage, update hemoglobin A1c BRIAN CPAP noncompliance dementia Asymptomatic pyuria, patient not septic hx BPH status post surgery past tobacco abuse Total Time Total Time Spent Total Time Spent (In Minutes): 40 Discharge Plan Discharge Items Patient Disposition: Home - Self-Care Reason For Visit: ARF Discharge Diagnosis: LILA, UTI Ambulatory dysfunction Activity: Per Instructions section Non-emergency contact: Primary Care Provider and Specialist Call non-emergency contact if: you have any medication questions and your symptoms worsen Follow-up/Referrals: Junaid Gu MD [Primary Care Provider] - Diet: Carb Consistent or DM2 and Heart Healthy Addtl Attending Provider Instructions: Follow up with your primary care doctor within 1 week. At that time you should have bloodwork done - BMP - to check on your kidney function. Do not take losartan until you discuss this with your primary care physician. Finish antibiotic treatment with cefuroxime and linezolid as prescribed. It is recommended that you also follow up with urology. For pain, you can take tylenol 1,000 mg three times a day, max daily dose is 3,000 mg. You can also use lidocaine patch - this can be obtained over the counter under the name Salonpas. Only for more severe pain, you can use tramadol as needed as prescribed - and try to avoid/minimize its use while taking thania ezolid. Pending Studies at Discharge: No Stand-Alone Forms: My [facility], Smoking Cessation Medications and DC Order Prescriptions: New linezolid 600 mg tablet 600 mg PO BID 7 Days Qty: 14 0RF cefuroxime axetil 250 mg tablet 250 mg PO BID 7 Days Qty: 14 0RF tramadol 50 mg Tablet 25 mg PO Q4H PRN (Reason: pain (scale score 7-10)) Qty: 7 0RF Continued insulin glargine 100 unit/mL Solution 36 unit SUBCUT HS allopurinol 100 mg Tablet 100 mg PO QAM insulin aspart U-100 [Novolog FlexPen U-100 Insulin] 100 unit/mL Insulin Pen 1 unit SUBCUT AC Rx Instructions: sliding scale--16-20 units with breakfast, 18 units with lunch and 20 units with dinner rosuvastatin 5 mg Tablet 5 mg PO QPM omeprazole 20 mg Tablet,Delayed Release (Dr/Ec) 20 mg PO BID furosemide 40 mg tablet 80 mg PO AMPM ranolazine 500 mg tablet extended release 12 hr 500 mg PO BID tamsulosin 0.4 mg capsule 0.4 mg PO DAILY aspirin [Aspirin Low-Strength] 81 mg Tablet,Delayed Release (Dr/Ec) 81 mg PO QPM calcium carbonate-vitamin D3 [Calcium 600 + D(3)] 600 mg-10 mcg (400 unit) Tablet 1 tab PO BID cholestyramine (with sugar) [Questran] 4 gram Powder In Packet 4 g PO AMPM Discontinued losartan 50 mg Tablet 50 mg PO BID Discharge Orders: Discharge Order (Routine); Ordered 05/04/23 Ordered By: Kang Klein/Other Patient Handouts: Managing Type 2 Diabetes Admission Data Admit Date/Time: 05/01/23 19:41 Attending Provider: Kang Alarcon Admit Provider: Landon Garsia Primary Care Provider: Junaid Gu Other Providers: Landon Garsia ; [facility]
[2023-05-04] MEDS ORDERED: LINEZOLID 600 MG/300 ML D5W IV SCH (12:00)
[2023-05-04] MEDS ORDERED: LINEZOLID 600 MG/300 ML BAG IV SCH (12:00)
[2023-05-04] MEDS: cefTRIAXone SODIUM 2,000 MG in DEXTROSE 5% 50 ML IV SCH (15:23)
== END 2023-05-04 17:16 | disposition home health service (06) | DRG 683 ==
LOC: ED 19:55 → EDINP 19:55 → 2N 04-30 01:27

== ENCOUNTER 2023-05-18 11:34 | Inpatient (IN) ==
--- NOTE | 2023-05-18 11:53 | Emergency Department Note ---
Impression & Plan Acute on chronic renal insufficiency, Dementia, Elevated troponin, Presence of cardiac pacemaker, Thrombocytopenia, Lymphopenia ED Provider Note NAME: CATA HENRY AGE: 88 SEX: M ARRIVES VIA: Walk-In INFORMANT: Patient ED PROVIDER(S): Louis Díaz MD CHIEF COMPLAINT: Confusion PLAN: Disposition: Admit MEDICAL DECISION MAKING: The patient is a pleasant 88-year-old gentleman with a past medical history of Cary cirrhosis, diastolic dysfunction, CKD, CAD, hypertension, hyperlipidemia, dementia who presents to the emergency department via walk-in, accompanied by his for evaluation of confusion from his baseline confusion this morning where he had asked her out of the blue if they were in their old home and confused her with a cousin of theirs. The patient's reports that he has done this in the past after having a fall remotely when they were in [place] but this resolved. Otherwise at this time she reports she is at his normal baseline. They deny any fevers, chills, cough, congestion, shortness of breath. Patient was recently admitted to this facility for a fall and weakness with a UTI per records with admission from 05/01-05/04. The patient's adds that she feels he is not going to eat or drink much over the past several days and wonders if he is dehydrated. On arrival the patient is in no acute distress, afebrile with stable vital signs. He appears clinically dry. He exhibits minor confusion which is at his baseline and otherwise is alert to self and place. He exhibits no focal logic deficits. EKG without overt acute ischemia and demonstrates right bundle branch block that is similar to prior though without pacing today. CXR negative for acute cardiopulmonary process. WBC 4.5k with lymphopenia of 1.1, nonspecific and decreased from recent. H/H 10.9/32.8 also decreased from recent nonspecific. MCV is 97. Platelets 75K also newly decreased from recent and nonspecific. For further characterization of pancytopenia Lyme screen and Anaplasma smear and DNA testing were ordered. Creatinine is 2.7, increased from patient's baseline of 1.7-2 per recent values. BUN is 59 consistent with patient's clinical dry appearance with BUN/creatinine 21. Electrolytes without significant abnormality. Initial high-sensitivity troponin is 76, and delta 2-hour high-sensitivity troponin 72.4, stable to improving nonspecific. Lipase not elevated. TSH within normal limits. UA eventually obtained and demonstrates RBCs but no evidence of infection. Anaplasma Peezy smear were negative. DNA testing is pending. Lyme screen is negative. COVID-19 RNA, KHADIJAH test was negative. CT of the head and CT of the abdomen pelvis was performed and were negative for acute abnormalities. Patient was treated with IV fluid hydration and did appear improved and continued to remain at his baseline mental status. 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 Additionally no detection of tachyarrhythmias and episodes of underlying A-fib are unchanged. I did review the patient's findings with the patient's at the bedside and we did agree to proceed with admission at this time given his acute on chronic renal insufficiency and elevated troponin of unclear significance though suspected to be related in part to his renal insufficiency. [facility] the patient for admission. Further management per admitting team. Triage Nursing notes reviewed and agree them. Prior/outside medical records reviewed Vital Signs: reviewed Differential diagnosis: Infection, hypoglycemia, electrolyte abnormalities, overdose, toxicologic, cardiac sources, intracerebral event, neurologic, trauma, as well as other pathologies. ER treatment provided: See below. Diagnostics interpreted by me: ECG: Sinus rhythm with first-degree AV block, 74 bpm, no ectopy, right bundle br anch block, no overt ST elevation or depression, QTc 497, QRS 168. Cardiac Monitoring: An order for continuous cardiac monitoring was placed and demonstrated Sinus rhythm with first-degree AV block, 74 bpm, no ectopy. Laboratory studies: See below Imaging studies: See below Consultation(s): Case was [facility] Al[facility]con[facility] who will evaluate the patient for admission. HPI: The patient is a pleasant 88-year-old gentleman with a past medical history of Cary cirrhosis, diastolic dysfunction, CKD, CAD, hypertension, hyperlipidemia, dementia who presents to the emergency department via walk-in, accompanied by his for evaluation of confusion from his baseline confusion this morning where he had asked her out of the blue if they were in their old home and confused her with a cousin of theirs. The patient's reports that he has done this in the past after having a fall remotely when they were in [place] but this resolved. Otherwise at this time she reports she is at his normal baseline. They deny any fevers, chills, cough, congestion, shortness of breath. Patient was recently admitted to this facility for a fall and weakness with a UTI per records with admission from 05/01-05/04. The patient's adds that she feels he is not going to eat or drink much over the past several days and wonders if he is dehydrated. ROS: See above HPI for pertinent positives & negatives. A total of 10 systems reviewed and were otherwise negative. VITALS:See Below PHYSICAL EXAMINATION: GENERAL: Awake, alert, well-appearing, in no distress HENT: Normocephalic, atraumatic. Oropharynx with dry mucous membranes and otherwise unremarkable. EYES: Normal conjunctiva. Sclera non-icteric. NECK: Supple. No nuchal rigidity. FROM. No JVD. RESPIRATORY: Clear to auscultation. CARDIAC: Regular rate, normal rhythm. Extremities warm and well perfused. Pulses equal. ABDOMEN: Soft, non-distended. No tenderness to palpation. No rebound or guarding. No masses. RECTAL: Deferred. MUSCULOSKELETAL: Chest examination reveals no tenderness. The back is symmetrical on inspection without obvious abnormality. There is no CVA tenderness to palpation. No joint edema. LOWER EXTREMITIES: Calves are equal size bilaterally and non-tender. No edema. No discoloration. NEURO: Exhibits minor confusion which is at his baseline and otherwise is alert to self and place. 5/5 strength and SILT x 4 extremities. Cerebellar function intact including [id number], alternating palms, [id number]. SKIN: No rash or jaundice noted. Louis Díaz MD Past Med/Surg History Medical History (Updated 05/18/23 @ 21:23 by Louis Díaz MD) CAD (coronary artery disease) Chronic kidney disease (CKD), stage III (moderate) Dementia Diabetes mellitus, type 2 Gout Hearing deficit Hyperlipidemia Hypertension CARY (nonalcoholic steatohepatitis) On anticoagulant therapy on plavix Osteoarthritis Pacemaker 05/2018 @ [facility] by Dr. Abby Bustamante PAD (peripheral artery disease) Sleep apnea CPAP--doesn't used as ordered Surgical History History of bilateral cataract extraction History of cardiac cath x2----no stents History of colonoscopy History of coronary angioplasty 1986 History of esophagogastroduodenoscopy (EGD) History of lumbar fusion hardware in place History of tonsillectomy History of tooth extraction S/P CABG x 3 1999 @ [facility] Reading S/P peripheral artery angioplasty with stent placement x2--2014/2015 (total of 2 stents) Family History Mother Family history of diabetes mellitus Social History Smoking Status: Former smoker Second Hand Exposure: Yes (father smoked); Do You Dip or Chew Tobacco: No; Hx Alcohol Use: Yes Alcohol type: wine Hx Substance Use: No Preferred Language: Bahamian Communication Ability: Effective Tripoler Required: No Beliefs That Will Affect Care: None Current Living Situation: Spouse Feels Safe at Home: Yes Assistive Devices: Hearing Aid - Bilateral and Walker Allergies Allergies Allergy/AdvReac Type Severity Reaction Status Date / Time morphine Allergy Unknown HIVES Verified 05/18/23 16:00 pollen extracts Allergy Unknown RUNNY EYES Verified 05/18/23 16:00 shellfish derived Allergy Unknown NECK Verified 05/18/23 16:00 SWELLS-30 YRS AGO WITH CRABS atorvastatin AdvReac Mild SHOULDER Verified 04/29/23 23:13 PAIN Home Meds Home Medications Medication Instructions Recorded Confirmed allopurinol 100 mg tablet 100 mg PO QAM 08/19/18 05/18/23 insulin aspart U-100 100 unit/mL 14 - 16 unit subcut .BREAKFAST & 08/19/18 05/18/23 (3 mL) subcutaneous pen (Novolog LUNCH FlexPen U-100 Insulin aspart) insulin glargine 100 unit/mL 34 unit subcut HS 08/19/18 05/18/23 subcutaneous solution omeprazole 20 mg tablet,delayed 20 mg PO BID 08/19/18 05/18/23 release rosuvastatin 5 mg tablet 5 mg PO QPM 08/19/18 05/18/23 aspirin 81 mg tablet,delayed 81 mg PO QPM 04/29/23 05/18/23 release calcium carbonate 600 mg-vitamin 1 tab PO BID 04/29/23 05/18/23 D3 10 mcg (400 unit) tablet (Calcium 600 + D(3)) cholestyramine (with sugar) 4 gram 4 g PO AMPM 04/29/23 05/18/23 powder for susp in a packet (Questran) furosemide 40 mg tablet 40 mg PO AMPM 04/29/23 05/18/23 ranolazine 500 mg tablet,extended 500 mg PO BID 04/29/23 05/18/23 release,12 hr tamsulosin 0.4 mg capsule 0.4 mg PO DAILY 04/29/23 05/18/23 insulin aspart U-100 100 unit/mL 18 unit subcut .SUPPER 05/18/23 05/18/23 (3 mL) subcutaneous pen (Novolog FlexPen U-100 Insulin aspart) Previous Rx's Medication Instructions Recorded tramadol 50 mg tablet 25 mg PO Q4H PRN pain (scale score 05/04/23 7-10) #7 tabs Results & Data (ED) Vital Signs Vital Signs - 24 hr 05/18/23 11:40 05/18/23 12:02 05/18/23 12:02 Temperature 36.4 C L Temperature Source Temporal Artery Scan Pulse Rate 85 Pulse Rate from SpO2 Sensor Respiratory Rate 16 Respiratory Effort / Characteristics Non-Labored Respiratory Depth Normal Blood Pressure 90/55 L Blood Pressure Mean 66 Blood Pressure Position Sitting Pulse Oximetry 97 Oxygen Delivery Method Room Air Room Air Room Air Sepsis Recent Fever Within 48 Hours No Sepsis New/Unexplained Change in Mental Status No Sepsis Action Taken by Nursing No Action Required 05/18/23 11:49 05/18/23 11:50 05/18/23 12:00 Temperature Temperature Source Pulse Rate 80 Pulse Rate from SpO2 Sensor 80 Respiratory Rate 14 Respiratory Effort / Characteristics Respiratory Depth Blood Pressure 120/66 146/81 H Blood Pressure Mean 82 118 Blood Pressure Position Pulse Oximetry 96 Oxygen Delivery Method Room Air Sepsis Recent Fever Within 48 Hours Sepsis New/Unexplained Change in Mental Status Sepsis Action Taken by Nursing 05/18/23 12:00 05/18/23 12:23 05/18/23 12:30 Temperature Temperature Source Pulse Rate 75 71 Pulse Rate from SpO2 Sensor 76 Respiratory Rate 21 Respiratory Effort / Characteristics Respiratory Depth Blood Pressure 162/68 H Blood Pressure Mean 89 Blood Pressure Position Pulse Oximetry 95 Oxygen Delivery Method Room Air Sepsis Recent Fever Within 48 Hours Sepsis New/Unexplained Change in Mental Status Sepsis Action Taken by Nursing 05/18/23 12:30 05/18/23 13:00 05/18/23 13:01 Temperature Temperature Source Pulse Rate 69 65 66 Pulse Rate from SpO2 Sensor 69 65 65 Respiratory Rate 18 16 21 Respiratory Effort / Characteristics Respiratory Depth Blood Pressure Blood Pressure Mean Blood Pressure Position Pulse Oximetry 95 95 95 Oxygen Delivery Method Room Air Room Air Room Air Sepsis Recent Fever Within 48 Hours Sepsis New/Unexplained Change in Mental Status Sepsis Action Taken by Nursing 05/18/23 13:01 05/18/23 13:30 05/18/23 13:30 Temperature Temperature Source Pulse Rate 66 Pulse Rate from SpO2 Sensor 66 Respiratory Rate 16 Respiratory Effort / Characteristics Respiratory Depth Blood Pressure 139/79 167/93 H Blood Pressure Mean 113 131 Blood Pressure Position Pulse Oximetry 94 Oxygen Delivery Method Room Air Sepsis Recent Fever Within 48 Hours Sepsis New/Unexplained Change in Mental Status Sepsis Action Taken by Nursing 05/18/23 14:00 05/18/23 14:00 05/18/23 14:30 Temperature Temperature Source Pulse Rate 60 Pulse Rate from SpO2 Sensor 61 Respiratory Rate 15 Respiratory Effort / Characteristics Respiratory Depth Blood Pressure 164/80 H 157/77 H Blood Pressure Mean 122 106 Blood Pressure Position Pulse Oximetry 93 Oxygen Delivery Method Room Air Sepsis Recent Fever Within 48 Hours Sepsis New/Unexplained Change in Mental Status Sepsis Action Taken by Nursing 05/18/23 14:30 05/18/23 15:00 05/18/23 16:20 Temperature Temperature Source Pulse Rate 63 60 60 Pulse Rate from SpO2 Sensor 62 60 Respiratory Rate 16 15 Respiratory Effort / Characteristics Respiratory Depth Blood Pressure Blood Pressure Mean Blood Pressure Position Pulse Oximetry 98 98 Oxygen Delivery Method Room Air Sepsis Recent Fever Within 48 Hours Sepsis New/Unexplained Change in Mental Status Sepsis Action Taken by Nursing 05/18/23 15:30 05/18/23 16:00 05/18/23 16:30 Temperature Temperature Source Pulse Rate 62 68 60 Pulse Rate from SpO2 Sensor 62 68 60 Respiratory Rate 15 15 16 Respiratory Effort / Characteristics Respiratory Depth Blood Pressure Blood Pressure Mean Blood Pressure Position Pulse Oximetry 96 99 96 Oxygen Delivery Method Sepsis Recent Fever Within 48 Hours Sepsis New/Unexplained Change in Mental Status Sepsis Action Taken by Nursing 05/18/23 16:31 05/18/23 16:31 05/18/23 17:00 Temperature Temperature Source Pulse Rate 61 63 Pulse Rate from SpO2 Sensor 60 63 Respiratory Rate 16 16 Respiratory Effort / Characteristics Respiratory Depth Blood Pressure 156/80 H Blood Pressure Mean 90 Blood Pressure Position Pulse Oximetry 96 97 Oxygen Delivery Method Sepsis Recent Fever Within 48 Hours Sepsis New/Unexplained Change in Mental Status Sepsis Action Taken by Nursing 05/18/23 17:01 05/18/23 17:01 Temperature Temperature Source Pulse Rate 60 Pulse Rate from SpO2 Sensor 60 Respiratory Rate 17 Respiratory Effort / Characteristics Respiratory Depth Blood Pressure 175/78 H Blood Pressure Mean 125 Blood Pressure Position Pulse Oximetry 97 Oxygen Delivery Method Sepsis Recent Fever Within 48 Hours Sepsis New/Unexplained Change in Mental Status Sepsis Action Taken by Nursing Laboratory Data Attestation: I reviewed the patient's lab results. 05/18/23 12:05 05/18/23 12:05 Lab Results 05/18/23 05/18/23 05/18/23 Range/Units 12:05 12:05 12:05 WBC 4.54 L (4.8-10.8) K/ul RBC 3.36 L (4.70-6.10) M/uL Hgb 10.9 L (14.0-18.0) g/dl Hct 32.8 L (42.0-52.0) % MCV 97.6 (80.0-100.0) fL MCH 32.4 (25.0-34.0) pg MCHC 33.2 (32.0-36.0) g/dL RDW Std Deviation 52.2 H (36.4-46.3) fL RDW Coeff of Dave 14.6 H (11.5-14.5) % Plt Count 75 L (130-400) K/uL MPV 12.5 H (9.4-12.4) fL Immature Gran % (Auto) 0.2 % Neut % (Auto) 58.1 % Lymph % (Auto) 24.7 % Culberson % (Auto) 12.8 % Eos % (Auto) 4.0 % Baso % (Auto) 0.2 % Neut # (Auto) 2.64 (1.40-6.50) K/uL Lymph # (Auto) 1.12 L (1.20-3.40) K/uL Culberson # (Auto) 0.58 (0.11-0.59) K/uL Eos # (Auto) 0.18 (0.00-0.50) K/uL Baso # (Auto) 0.01 (0.00-0.20) K/uL Immature Gran # (Auto) 0.01 (0.01-0.20) K/uL Platelet Estimate Decreased L (Normal) Polychromasia 1+ Ovalocytes 1+ Sodium 141 (136-145) mmol/L Potassium 5.3 H (3.5-5.1) mmol/L Chloride 112 H (98-107) mmol/L Carbon Dioxide 23 (21-32) mmol/L Anion Gap 6 (3-11) BUN 59 H (6-23) mg/dl Creatinine 2.70 H (0.6-1.4) mg/dl Est Cr Clr Drug Dosing 18.9 ml/min Est GFR ( Amer) 23.7 ml/min Est GFR (Non-Af Amer) 20.4 ml/min BUN/Creatinine Ratio 21.9 H (10-20) Glucose 90 (70-99(Fasting)) mg/dl POC Glucose (70-99) mg/dl Calcium 9.6 (8.6-10.3) mg/dl Phosphorus 2.7 (2.5-4.9) mg/dl Magnesium 2.1 (1.7-2.4) mg/dl Total Bilirubin 0.6 (0.2-1.0) mg/dl AST 26 (13-39) U/L ALT 21 (7-52) U/L Alkaline Phosphatase 89 (34-104) U/L Ammonia (18-72) umol/L Troponin I High Sens 76.1 H* (0-20) pg/ml Total Protein 6.1 (6.0-8.3) gm/dl Albumin 3.7 (3.4-5.0) gm/dl Globulin 2.4 L (2.5-4.0) gm/dl Albumin/Globulin Ratio 1.5 (0.9-2) Lipase 15 (11-82) U/L TSH 3.905 (0.300-4.500) uIu/ml Anaplasma Smear Babesia Smear SARS-CoV-2, RNA, NAAT (NEGATIVE) 05/18/23 05/18/23 05/18/23 Range/Units 12:05 12:05 13:56 WBC (4.8-10.8) K/ul RBC (4.70-6.10) M/uL Hgb (14.0-18.0) g/dl Hct (42.0-52.0) % MCV (80.0-100.0) fL MCH (25.0-34.0) pg MCHC (32.0-36.0) g/dL RDW Std Deviation (36.4-46.3) fL RDW Coeff of Dave (11.5-14.5) % Plt Count (130-400) K/uL MPV (9.4-12.4) fL Immature Gran % (Auto) % Neut % (Auto) % Lymph % (Auto) % Culberson % (Auto) % Eos % (Auto) % Baso % (Auto) % Neut # (Auto) (1.40-6.50) K/uL Lymph # (Auto) (1.20-3.40) K/uL Culberson # (Auto) (0.11-0.59) K/uL Eos # (Auto) (0.00-0.50) K/uL Baso # (Auto) (0.00-0.20) K/uL Immature Gran # (Auto) (0.01-0.20) K/uL Platelet Estimate (Normal) Polychromasia Ovalocytes Sodium (136-145) mmol/L Potassium (3.5-5.1) mmol/L Chloride (98-107) mmol/L Carbon Dioxide (21-32) mmol/L Anion Gap (3-11) BUN (6-23) mg/dl Creatinine (0.6-1.4) mg/dl Est Cr Clr Drug Dosing ml/min Est GFR ( Amer) ml/min Est GFR (Non-Af Amer) ml/min BUN/Creatinine Ratio (10-20) Glucose (70-99(Fasting)) mg/dl POC Glucose 92 (70-99) mg/dl Calcium (8.6-10.3) mg/dl Phosphorus (2.5-4.9) mg/dl Magnesium (1.7-2.4) mg/dl Total Bilirubin (0.2-1.0) mg/dl AST (13-39) U/L ALT (7-52) U/L Alkaline Phosphatase (34-104) U/L Ammonia 22.0 (18-72) umol/L Troponin I High Sens 72.4 H* (0-20) pg/ml Total Protein (6.0-8.3) gm/dl Albumin (3.4-5.0) gm/dl Globulin (2.5-4.0) gm/dl Albumin/Globulin Ratio (0.9-2) Lipase (11-82) U/L TSH (0.300-4.500) uIu/ml Anaplasma Smear Babesia Smear SARS-CoV-2, RNA, NAAT (NEGATIVE) 05/18/23 05/18/23 Range/Units 16:06 17:03 WBC (4.8-10.8) K/ul RBC (4.70-6.10) M/uL Hgb (14.0-18.0) g/dl Hct (42.0-52.0) % MCV (80.0-100.0) fL MCH (25.0-34.0) pg MCHC (32.0-36.0) g/dL RDW Std Deviation (36.4-46.3) fL RDW Coeff of Dave (11.5-14.5) % Plt Count (130-400) K/uL MPV (9.4-12.4) fL Immature Gran % (Auto) % Neut % (Auto) % Lymph % (Auto) % Culberson % (Auto) % Eos % (Auto) % Baso % (Auto) % Neut # (Auto) (1.40-6.50) K/uL Lymph # (Auto) (1.20-3.40) K/uL Culberson # (Auto) (0.11-0.59) K/uL Eos # (Auto) (0.00-0.50) K/uL Baso # (Auto) (0.00-0.20) K/uL Immature Gran # (Auto) (0.01-0.20) K/uL Platelet Estimate (Normal) Polychromasia Ovalocytes Sodium (136-145) mmol/L Potassium (3.5-5.1) mmol/L Chloride (98-107) mmol/L Carbon Dioxide (21-32) mmol/L Anion Gap (3-11) BUN (6-23) mg/dl Creatinine (0.6-1.4) mg/dl Est Cr Clr Drug Dosing ml/min Est GFR ( Amer) ml/min Est GFR (Non-Af Amer) ml/min BUN/Creatinine Ratio (10-20) Glucose (70-99(Fasting)) mg/dl POC Glucose (70-99) mg/dl Calcium (8.6-10.3) mg/dl Phosphorus (2.5-4.9) mg/dl Magnesium (1.7-2.4) mg/dl Total Bilirubin (0.2-1.0) mg/dl AST (13-39) U/L ALT (7-52) U/L Alkaline Phosphatase (34-104) U/L Ammonia (18-72) umol/L Troponin I High Sens (0-20) pg/ml Total Protein (6.0-8.3) gm/dl Albumin (3.4-5.0) gm/dl Globulin (2.5-4.0) gm/dl Albumin/Globulin Ratio (0.9-2) Lipase (11-82) U/L TSH (0.300-4.500) uIu/ml Anaplasma Smear See Comment Babesia Smear See Comment SARS-CoV-2, RNA, NAAT NEGATIVE (NEGATIVE) Administered Medications Aspirin (Aspirin 81 Mg Ectab) 81 mg PO QPM JANINE Stop: 06/17/23 20:59 Last Admin: 05/18/23 21:12 Dose: 81 mg Documented By: DANK Cholestyramine Resin (Cholestyramine Light 4 Gm Pkt) 4 gm PO BID JANINE Stop: 06/17/23 20:59 Last Admin: 05/18/23 21:11 Dose: 4 gm Documented By: DANK Ranolazine (Ranolazine 500 Mg Er Tab) 500 mg PO BID JANINE Stop: 06/17/23 20:59 Last Admin: 05/18/23 21:12 Dose: 500 mg Documented By: DANK Rosuvastatin Calcium (Rosuvastatin Calcium 5 Mg Tab) 5 mg PO QPM JANINE Stop: 06/17/23 20:59 Last Admin: 05/18/23 21:13 Dose: 5 mg Documented By: DANK Discontinued Medications Sodium Chloride (Nss) 500 mls @ 999 mls/hr IV .Q31M ONE Stop: 05/18/23 12:51 Last Infusion: 05/18/23 13:13 Dose: 0 mls/hr Documented By: Admin: 05/18/23 12:42 Dose: 999 mls/hr Documented By: BESSIE Sodium Chloride (Nss) 500 mls @ 999 mls/hr IV .Q31M ONE Stop: 05/18/23 15:16 Last Infusion: 05/18/23 19:26 Dose: 0 mls/hr Documented By: Admin: 05/18/23 15:59 Dose: 999 mls/hr Documented By: [facility] Imaging Data Radiologist's Impression: Chest X-Ray 05/18/23 11:50 XR chest 1V portable HISTORY: Chest pain, nonspecific COMPARISON: Chest CT 04/29/2023. FINDINGS: There is a left-sided dual-chamber pacemaker. No pneumothorax. No pleural effusions. A few bibasilar linear densities favor subsegmental atelectasis or scarring. This is similar to the prior study. No new focal lung consolidations to suggest a pneumonia. No evidence for pulmonary edema. The heart remains mildly enlarged. There are postoperative changes and a small right azygos lobe again noted. IMPRESSION: No significant change compared to the prior study. No acute process. ACT 112: Negative or not required by law. Electronically signed by: Benedicto Salas M.D. 05/18/2023 2:[address] 05/18/23 12:21 CT SCAN OF THE BRAIN WITHOUT IV CONTRAST CLINICAL HISTORY: Change in mental status. COMPARISON STUDY: CT of the brain dated 04/29/2023. TECHNIQUE: Unenhanced axial CT scan of the brain is performed from the vertex to the skull base. A dose lowering technique was utilized adhering to the principles of ALARA. FINDINGS: Brain parenchyma: There is age-related involutional change noting moderate subcortical and periventricular microangiopathic disease. There is no hemorrhage, mass effect, or evidence of acute territorial ischemia by CT criteria. Braun-white matter differentiation is preserved. No extra-axial fluid collection is seen. Ventricles, sulci, cisterns: Prominent secondary to involutional change. Intracranial vasculature: There is atherosclerotic calcification of the cavernous carotid and vertebral artery. Calvarium: Unremarkable. Sinuses and mastoids: There is limited opacification of the left maxillary sinus. Thickening and sclerosis of the sinus wall indicates chronicity. The remaining visualized paranasal sinuses are clear. The mastoid air cells are well pneumatized. Orbits: The bony orbits are grossly intact. There are bilateral ocular lens implants. IMPRESSION: There is no hemorrhage, mass effect, or evidence of acute territorial ischemia by CT criteria. ACT 112: Negative or not required by law. Electronically signed by: Eddie Dillon M.D. 05/18/2023 1:28 PM Abdomen/Pelvis CT 05/18/23 13:11 CT SCAN OF THE ABDOMEN AND PELVIS WITHOUT IV CONTRAST CLINICAL HISTORY: Acute on chronic renal insufficiency. COMPARISON STUDY: Abdominal CT dated 04/30/2023. TECHNIQUE: CT scan of the abdomen and pelvis is performed from the lung bases to the proximal femora. Images are reviewed in the axial, sagittal, and coronal planes. IV contrast was not administered for this examination. A dose lowering technique was utilized adhering to the principles of ALARA. CT DOSE: 1991.92 mGy.cm FINDINGS: Lung bases: The patient is status post midline sternotomy. The heart is enlarged and without pericardial effusion. Pacemaker leads are in place. The coronary arteries are densely calcified. There is diminished attenuation of the cardiac blood pool as compared to the myocardium suggesting anemia. The lung bases are clear noting bibasilar scarring/atelectasis. There is a small hiatal hernia. Liver: The unenhanced liver is normal in size, contour, and attenuation. There is no intrahepatic biliary ductal dilatation. Gallbladder: There are layering calcified gallstones with no CT evidence of acute cholecystitis. Spleen: Normal in size and attenuation. 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 Pancreas: The unenhanced pancreas is moderately atrophic. Scattered parenchymal calcifications suggest chronic pancreatitis. Adrenal glands: Unremarkable. Kidneys: The unenhanced kidneys demonstrate cortical atrophy and are without hydronephrosis. There is a punctate nonobstructing right renal calculus. No left renal calculi are identified and no ureteral stone is seen. A 2 cm cyst is noted in the right upper pole. Abdominal vasculature: There is advanced atherosclerotic calcification and mild ectasia of the abdominal aorta. Bowel: There are scattered colonic diverticula without CT evidence of acute diverticulitis. No bowel obstruction is seen. The appendix is well-visualized and normal. Peritoneum: There is no intraperitoneal free air or abdominal ascites. There is a fat-containing umbilical hernia. Lymphadenopathy: None. Pelvic viscera: Evaluation of the pelvis is degraded by streak artifact from a left hip arthroplasty. The prostate gland is enlarged and heterogeneous. The bladder is distended, and the wall is thickened/trabeculated indicating chronic outlet obstruction. There are bilateral fat-containing groin hernias. Skeletal structures: The skeletal structures are osteopenic. There is advanced lumbosacral spondylosis with laminectomy change throughout the lumbar spine. No lytic or blastic lesions are seen. A left hip arthroplasty is in place. There are subacute left anterior 6th and 7th rib fractures. IMPRESSION: 1. No acute infectious or inflammatory findings are identified in the abdomen or pelvis. 2. The kidneys demonstrate cortical atrophy and are without hydronephrosis. 3. Punctate nonobstructing right renal calculus. 4. Subacute left anterior rib fractures as above. 5. Cardiomegaly and cardiac pacemaker. 6. Prostatomegaly with evidence of chronic bladder outlet obstruction. 7. Cholelithiasis. 8. Additional findings as above. ACT 112: Negative or not required by law. Electronically signed by: Eddie Dillon M.D. 05/18/2023 2:18 PM Discharge Plan Visit Data Chief Complaint: Altered Mental Status Stated Complaint: WORSENING WEAKNESS, ALTERED MENTAL STATUS X WEEKS ED Provider: Louis Díaz Discharge Problem: Acute on chronic renal insufficiency, Dementia, Elevated troponin, Presence of cardiac pacemaker, Thrombocytopenia, Lymphopenia Patient Disposition: Admitted As Inpatient Discharge Instructions Interventions: ED Discharge Assessment Last Done: 05/18/23 20:13
[2023-05-18] MEDS ORDERED: SODIUM CHLORIDE 0.9% 500 ML IV ONE ×2 (12:21→14:46)
[2023-05-18 12:51] LABS: Alanine Aminotransferase 21 U/L (7-52); Albumin Globulin Ratio 1.5 (0.9-2); Albumin Level 3.7 gm/dl (3.4-5.0); Alkaline Phosphatase 89 U/L (34-104); Anion Gap 6 (3-11); Aspartate Aminotransferase 26 U/L (13-39); BUN Creatinine Ratio 21.9 (10-20); Bilirubin,Total 0.6 mg/dl (0.2-1.0); Blood Urea Nitrogen 59 mg/dl (6-23); Calcium 9.6 mg/dl (8.6-10.3); Carbon Dioxide 23 mmol/L (21-32); Chloride 112 mmol/L (98-107); Creatinine Clr Calc Pharmacy 18.9 ml/min; Est GFR (African American) 23.7 ml/min; Est GFR (Non-African American) 20.4 ml/min; Globulin 2.4 gm/dl (2.5-4.0); Glucose 90 mg/dl (70-99(Fasting)); Lipase 15 U/L (11-82); Magnesium 2.1 mg/dl (1.7-2.4); Phosphorus 2.7 mg/dl (2.5-4.9); Potassium 5.3 mmol/L (3.5-5.1); Sodium 141 mmol/L (136-145); Total Protein 6.1 gm/dl (6.0-8.3)
[2023-05-18 13:08] LABS: Troponin I High Sensitivity 76.1 pg/ml (0-20)
[2023-05-18 13:24] LABS: Basophils # (auto) 0.01 K/uL (0.00-0.20); Basophils % (auto) 0.2 %; Eosinophils # (auto) 0.18 K/uL (0.00-0.50); Hematocrit (blood only) 32.8 % (42.0-52.0); Hemoglobin 10.9 g/dl (14.0-18.0); Immature Granulocytes # (auto) 0.01 K/uL (0.01-0.20); Immature Granulocytes % (auto) 0.2 %; Lymphocytes # (auto) 1.12 K/uL (1.20-3.40); Lymphocytes % (auto) 24.7 %; Mean Corpuscular Hemoglobin 32.4 pg (25.0-34.0); Mean Corpuscular Hgb Conc 33.2 g/dL (32.0-36.0); Mean Corpuscular Volume 97.6 fL (80.0-100.0); Mean Platelet Volume 12.5 fL (9.4-12.4); Monocytes # (auto) 0.58 K/uL (0.11-0.59); Monocytes % (auto) 12.8 %; Neutrophils # (auto) 2.64 K/uL (1.40-6.50); Neutrophils % (auto) 58.1 %; Ovalocytes 1+; Platelet Count 75 K/uL (130-400); Platelet Estimate Decreased (Normal); Polychromasia 1+; RDW Coefficient of Variation 14.6 % (11.5-14.5); RDW Standard Deviation 52.2 fL (36.4-46.3); Red Blood Count 3.36 M/uL (4.70-6.10); White Blood Count 4.54 K/ul (4.8-10.8)
--- NOTE | 2023-05-18 13:29 | CT Scan Report ---
CT SCAN OF THE BRAIN WITHOUT IV CONTRAST CLINICAL HISTORY: Change in mental status. COMPARISON STUDY: CT of the brain dated 04/29/2023. TECHNIQUE: Unenhanced axial CT scan of the brain is performed from the vertex to the skull base. A do se lowering technique was utilized adhering to the principles of ALARA. FINDINGS: Brain parenchyma: There is age-related involutional change noting moderate subcortical and periventri cular microangiopathic disease. There is no hemorrhage, mass effect, or evidence of acute territorial ischemia by CT criteria. Braun-white matter differentiation is preserved. No extra-axial fluid collec tion is seen. Ventricles, sulci, cisterns: Prominent secondary to involutional change. Intracranial vasculature: There is atherosclerotic calcification of the cavernous carotid and vertebr al artery. Calvarium: Unremarkable. Sinuses and mastoids: There is limited opacification of the left maxillary sinus. Thickening and scle rosis of the sinus wall indicates chronicity. The remaining visualized paranasal sinuses are clear. T he mastoid air cells are well pneumatized. Orbits: The bony orbits are grossly intact. There are bilateral ocular lens implants. IMPRESSION: There is no hemorrhage, mass effect, or evidence of acute territorial ischemia by CT munira valle. ACT 112: Negative or not required by law. Electronically signed by: Eddie Dillon M.D. 05/18/2023 1:28 PM
--- NOTE | 2023-05-18 14:03 | XRay Report ---
XR chest 1V portable HISTORY: Chest pain, nonspecific COMPARISON: Chest CT 04/29/2023. FINDINGS: There is a left-sided dual-chamber pacemaker. No pneumothorax. No pleural effusions. A few bibasilar linear densities favor subsegmental atelectasis or scarring. This is similar to the prior s tudy. No new focal lung consolidations to suggest a pneumonia. No evidence for pulmonary edema. The h eart remains mildly enlarged. There are postoperative changes and a small right azygos lobe again not ed. IMPRESSION: No significant change compared to the prior study. No acute process. ACT 112: Negative or not required by law. Electronically signed by: Benedicto Salas M.D. 05/18/2023 2:02 PM
--- NOTE | 2023-05-18 14:20 | CT Scan Report ---
CT SCAN OF THE ABDOMEN AND PELVIS WITHOUT IV CONTRAST CLINICAL HISTORY: Acute on chronic renal insufficiency. COMPARISON STUDY: Abdominal CT dated 04/30/2023. TECHNIQUE: CT scan of the abdomen and pelvis is performed from the lung bases to the proximal femora. Images are reviewed in the axial, sagittal, and coronal planes. IV contrast was not administered for this examination. A dose lowering technique was utilized adhering to the principles of ALARA. CT DOSE: 1991.92 mGy.cm FINDINGS: Lung bases: The patient is status post midline sternotomy. The heart is enlarged and without pericard ial effusion. Pacemaker leads are in place. The coronary arteries are densely calcified. There is dim inished attenuation of the cardiac blood pool as compared to the myocardium suggesting anemia. The waqar ng bases are clear noting bibasilar scarring/atelectasis. There is a small hiatal hernia. Liver: The unenhanced liver is normal in size, contour, and attenuation. There is no intrahepatic rosibel iary ductal dilatation. Gallbladder: There are layering calcified gallstones with no CT evidence of acute cholecystitis. Spleen: Normal in size and attenuation. There is a 12 mm peripherally calcified splenic artery aneury sm. Pancreas: The unenhanced pancreas is moderately atrophic. Scattered parenchymal calcifications sugges t chronic pancreatitis. Adrenal glands: Unremarkable. Kidneys: The unenhanced kidneys demonstrate cortical atrophy and are without hydronephrosis. There is a punctate nonobstructing right renal calculus. No left renal calculi are identified and no ureteral stone is seen. A 2 cm cyst is noted in the right upper pole. Abdominal vasculature: There is advanced atherosclerotic calcification and mild ectasia of the abdomi nal aorta. Bowel: There are scattered colonic diverticula without CT evidence of acute diverticulitis. No bowel obstruction is seen. The appendix is well-visualized and normal. Peritoneum: There is no intraperitoneal free air or abdominal ascites. There is a fat-containing umbi lical hernia. Lymphadenopathy: None. Pelvic viscera: Evaluation of the pelvis is degraded by streak artifact from a left hip arthroplasty. The prostate gland is enlarged and heterogeneous. The bladder is distended, and the wall is thickene d/trabeculated indicating chronic outlet obstruction. There are bilateral fat-containing groin hernia s. Skeletal structures: The skeletal structures are osteopenic. There is advanced lumbosacral spondylosi s with laminectomy change throughout the lumbar spine. No lytic or blastic lesions are seen. A left h ip arthroplasty is in place. There are subacute left anterior 6th and 7th rib fractures. IMPRESSION: 1. No acute infectious or inflammatory findings are identified in the abdomen or pelvis. 2. The kidneys demonstrate cortical atrophy and are without hydronephrosis. 3. Punctate nonobstructing right renal calculus. 4. Subacute left anterior rib fractures as above. 5. Cardiomegaly and cardiac pacemaker. 6. Prostatomegaly with evidence of chronic bladder outlet obstruction. 7. Cholelithiasis. 8. Additional findings as above. ACT 112: Negative or not required by law. Electronically signed by: Eddie Dillon M.D. 05/18/2023 2:18 PM
--- NOTE | 2023-05-18 15:58 | History & Physical Report ---
Date of Service May 18, 2023 Assessment & Plan (1) Acute kidney injury superimposed on chronic kidney disease: Plan: Urinary retention - Garcia to be placed , over 400cc in bladder in ER Confusion possibly secondary to LILA on CKD,urinary retention, gastroenteritis in the setting of known dementia, also poss. UTI Nausea/ vomitting, diarrhea - ? gastroenteritis, stool PCT, c. diff ordered Today in the ED CT head - negative, CXR - unremarkable, CT abdomen/pelvis - without acute changes However found to retain urine and Garcia to be placed UA ordered in the ED - pending Stool pct, c. diff - pending - pt recently on antibiotics for poss. UTI Tick borne panel ordered in ED and pending - recently admitted w/ UTI and LILA, and s/p fall LILA on CKD - received IVF in the ED -hold lasix for now -poss. secondary to urinary retention as well and Garcia is being placed -follow urine cultx -monitor BMP, BMP for tmrw ordered -if w/o improvement, consider to discuss w/ nephrology Pancytopenia - hx of anemia - pancytopenia possibly secondary to recent use of linezolid - tick borne panel also obtained in the ED - order peripheral smear - cont. to monitor CBC Chronic conditions hx CAD status post CABG hx PAD status post stent SSS status post PPM hypertension hyperlipidemia statin Rx - for above conditions - cont. home meds BRIAN CPAP noncompliance DM2 insulin requiring Current A1c 6.4% decrease home insulin given poor oral intake, glycemic pharmacy consult Inpt BS goal 110- 40, carb count coverage History of Present Illness Chief Complaint: confusion Primary Care Provider: Junaid Gu MD 88 yo M with CAD status post CABG, PAD, SSS status post PPM, hypertension, DM type II on insulin, sleep apnea, hypertension, diastolic CHF, nonalcoholic fatty liver disease, CKD stage III, dementia, history of BPH, who presents with confusion, nausea vomiting diarrhea. Patient with dementia, and recently admitted and treated for UTI and LILA. He was discharged on oral antibiotics, and per he was doing well initially. He established care with [facility] PCP. Patient's is present at the bedside and provides history and confirms the medications. She says for the past 3 days patient would not eat or drink, was more disoriented, and only wanted to sleep. She also noticed that his loose stools got worse. He seems to be weaker even while walking with a walker and she was afraid he would fall. Yesterday he was interested in watching football game, which is unusual for him. In the ED creatinine elevated at 2.7. Also troponin elevated at 70, repeat troponin decreased. CT head, chest x-ray, and CT abdomen pelvis obtained in the ED, and without any acute changes. He has known BPH, and patient's says that he was not really urinating today. In the ED he was provided with IV fluids. I asked for bladder ultrasound. Patient is retaining urine and Garcia catheter will be placed, over 400 cc currently in bladder. No fevers chills, no cough no shortness of breath. Denies abdominal pain. UA ordered in the ED and pending. I also asked for stool PCR given diarrhea. Tick borne illness panel ordered in ED and pending. Allergies Allergy/AdvReac Type Severity Reaction Status Date / Time morphine Allergy Unknown HIVES Verified 05/18/23 16:00 pollen extracts Allergy Unknown RUNNY EYES Verified 05/18/23 16:00 shellfish derived Allergy Unknown NECK Verified 05/18/23 16:00 SWELLS-30 YRS AGO WITH CRABS atorvastatin AdvReac Mild SHOULDER Verified 04/29/23 23:13 PAIN Home Medications Medication Instructions Recorded Confirmed Type allopurinol 100 mg tablet 100 mg PO QAM 08/19/18 05/18/23 History insulin aspart U-100 100 unit/mL 14 - 16 unit subcut .BREAKFAST & 08/19/18 05/18/23 History (3 mL) subcutaneous pen (Novolog LUNCH FlexPen U-100 Insulin aspart) insulin glargine 100 unit/mL 34 unit subcut HS 08/19/18 05/18/23 History subcutaneous solution omeprazole 20 mg tablet,delayed 20 mg PO BID 08/19/18 05/18/23 History release rosuvastatin 5 mg tablet 5 mg PO QPM 08/19/18 05/18/23 History aspirin 81 mg tablet,delayed 81 mg PO QPM 04/29/23 05/18/23 History release calcium carbonate 600 mg-vitamin 1 tab PO BID 04/29/23 05/18/23 History D3 10 mcg (400 unit) tablet (Calcium 600 + D(3)) cholestyramine (with sugar) 4 gram 4 g PO AMPM 04/29/23 05/18/23 History powder for susp in a packet (Questran) furosemide 40 mg tablet 40 mg PO AMPM 04/29/23 05/18/23 History ranolazine 500 mg tablet,extended 500 mg PO BID 04/29/23 05/18/23 History release,12 hr tamsulosin 0.4 mg capsule 0.4 mg PO DAILY 04/29/23 05/18/23 History tramadol 50 mg tablet 25 mg PO Q4H PRN pain (scale score 05/04/23 05/18/23 Rx 7-10) #7 tabs insulin aspart U-100 100 unit/mL 18 unit subcut .SUPPER 05/18/23 05/18/23 History (3 mL) subcutaneous pen (Novolog FlexPen U-100 Insulin aspart) Past Med/Surg History Medical History (Updated 04/29/23 @ 22:40 by Hung Matthews MD) CAD (coronary artery disease) Chronic kidney disease (CKD), stage III (moderate) Dementia Diabetes mellitus, type 2 Gout Hearing deficit Hyperlipidemia Hypertension CAMARILLO (nonalcoholic steatohepatitis) On anticoagulant therapy on plavix Osteoarthritis Pacemaker 05/2018 @ [facility] by Dr. Mora [facility] PAD (peripheral artery disease) Sleep apnea CPAP--doesn't used as ordered Surgical History History of bilateral cataract extraction History of cardiac cath x2--1997/1999--no stents History of colonoscopy History of coronary angioplasty 1985 History of esophagogastroduodenoscopy (EGD) History of lumbar fusion hardware in place History of tonsillectomy History of tooth extraction S/P CABG x 3 1999 @ [facility] S/P peripheral artery angioplasty with stent placement x2--2014/2015 (total of 2 stents) Family History Mother Family history of diabetes mellitus Social History Smoking Status: Former smoker Second Hand Exposure: Yes (father smoked); Do You Dip or Chew Tobacco: No; Hx Alcohol Use: Yes Alcohol type: wine Hx Substance Use: No Preferred Language: Nepali Communication Ability: Effective Claims Customer Service Representative Required: No Beliefs That Will Affect Care: None Current Living Situation: Spouse Feels Safe at Home: Yes Assistive Devices: Hearing Aid - Bilateral and Walker Review of Systems Review of Systems: All systems reviewed & are unremarkable except as noted in HPI & below Physical Exam Constitutional: WD/WN, vitals as above Eyes: PERRL, conjunctivae normal, anicteric sclerae ENMT: external ear and nose normal, oropharynx normal Neck: + thick neck Respiratory: normal respiratory effort, lungs clear to auscultation Cardiovascular: RRR, no murmur, no edema Gastrointestinal (Abdomen): normal bowel sounds, soft, nontender, no hepatosplenomegaly Musculoskeletal: Extremities: extremities normal to inspection (moves extremities) Skin: no rashes, warm and dry Neurologic: PERRL, EOMI, accommodation nl, no face palsy, no dysarthria (drowsy but able to answer simple questions) Psychiatric: A+Ox3, euthymic affect Results & Data Results & Data Vital Signs (Past 12 Hours) Vital Signs Temp Pulse Resp BP Pulse Ox O2 Del Method 05/18/23 15:00 60 15 98 05/18/23 14:30 63 16 98 Room Air 05/18/23 14:30 157/77 H 05/18/23 14:00 60 15 93 Room Air 05/18/23 14:00 164/80 H 05/18/23 13:30 66 16 94 Room Air 05/18/23 13:30 167/93 H 05/18/23 13:01 139/79 05/18/23 13:01 66 21 95 Room Air 05/18/23 13:00 65 16 95 Room Air 05/18/23 12:30 69 18 95 Room Air 05/18/23 12:30 162/68 H 05/18/23 12:23 71 05/18/23 12:00 75 21 95 Room Air 05/18/23 12:00 146/81 H 05/18/23 11:50 80 14 96 Room Air 05/18/23 11:49 120/66 05/18/23 12:02 Room Air 05/18/23 12:02 Room Air 05/18/23 11:40 36.4 C L 85 16 90/55 L 97 Room Air Laboratory Results 05/18/23 05/18/23 05/18/23 Range/Units 13:56 12:05 12:05 WBC (4.8-10.8) K/ul RBC (4.70-6.10) M/uL Hgb (14.0-18.0) g/dl Hct (42.0-52.0) % MCV (80.0-100.0) fL MCH (25.0-34.0) pg MCHC (32.0-36.0) g/dL RDW Std Deviation (36.4-46.3) fL RDW Coeff of Dave (11.5-14.5) % Plt Count (130-400) K/uL MPV (9.4-12.4) fL Immature Gran % (Auto) % Neut % (Auto) % Lymph % (Auto) % [place] % (Auto) % Eos % (Auto) % Baso % (Auto) % Neut # (Auto) (1.40-6.50) K/uL Lymph # (Auto) (1.20-3.40) K/uL [place] # (Auto) (0.11-0.59) K/uL Eos # (Auto) (0.00-0.50) K/uL Baso # (Auto) (0.00-0.20) K/uL Immature Gran # (Auto) (0.01-0.20) K/uL Platelet Estimate (Normal) Polychromasia Ovalocytes Sodium (136-145) mmol/L Potassium (3.5-5.1) mmol/L Chloride (98-107) mmol/L Carbon Dioxide (21-32) mmol/L Anion Gap (3-11) BUN (6-23) mg/dl Creatinine (0.6-1.4) mg/dl Est Cr Clr Drug Dosing ml/min Est GFR ( Amer) ml/min Est GFR (Non-Af Amer) ml/min BUN/Creatinine Ratio (10-20) Glucose (70-99(Fasting)) mg/dl POC Glucose 92 (70-99) mg/dl Calcium (8.6-10.3) mg/dl Phosphorus (2.5-4.9) mg/dl Magnesium (1.7-2.4) mg/dl Total Bilirubin (0.2-1.0) mg/dl AST (13-39) U/L ALT (7-52) U/L Alkaline Phosphatase (34-104) U/L Ammonia 22.0 (18-72) umol/L Troponin I High Sens 72.4 H* (0-20) pg/ml Total Protein (6.0-8.3) gm/dl Albumin (3.4-5.0) gm/dl Globulin (2.5-4.0) gm/dl Albumin/Globulin Ratio (0.9-2) Lipase (11-82) U/L TSH (0.300-4.500) uIu/ml 05/18/23 05/18/23 05/18/23 Range/Units 12:05 12:05 12:05 WBC 4.54 L (4.8-10.8) K/ul RBC 3.36 L (4.70-6.10) M/uL Hgb 10.9 L (14.0-18.0) g/dl Hct 32.8 L (42.0-52.0) % MCV 97.6 (80.0-100.0) fL MCH 32.4 (25.0-34.0) pg MCHC 33.2 (32.0-36.0) g/dL RDW Std Deviation 52.2 H (36.4-46.3) fL RDW Coeff of Dave 14.6 H (11.5-14.5) % Plt Count 75 L (130-400) K/uL MPV 12.5 H (9.4-12.4) fL Immature Gran % (Auto) 0.2 % Neut % (Auto) 58.1 % Lymph % (Auto) 24.7 % [place] % (Auto) 12.8 % Eos % (Auto) 4.0 % Baso % (Auto) 0.2 % Neut # (Auto) 2.64 (1.40-6.50) K/uL Lymph # (Auto) 1.12 L (1.20-3.40) K/uL [place] # (Auto) 0.58 (0.11-0.59) K/uL Eos # (Auto) 0.18 (0.00-0.50) K/uL Baso # (Auto) 0.01 (0.00-0.20) K/uL Immature Gran # (Auto) 0.01 (0.01-0.20) K/uL Platelet Estimate Decreased L (Normal) Polychromasia 1+ Ovalocytes 1+ Sodium 141 (136-145) mmol/L Potassium 5.3 H (3.5-5.1) mmol/L Chloride 112 H (98-107) mmol/L Carbon Dioxide 23 (21-32) mmol/L Anion Gap 6 (3-11) BUN 59 H (6-23) mg/dl Creatinine 2.70 H (0.6-1.4) mg/dl Est Cr Clr Drug Dosing 18.9 ml/min Est GFR ( Amer) 23.7 ml/min Est GFR (Non-Af Amer) 20.4 ml/min BUN/Creatinine Ratio 21.9 H (10-20) Glucose 90 (70-99(Fasting)) mg/dl POC Glucose (70-99) mg/dl Calcium 9.6 (8.6-10.3) mg/dl Phosphorus 2.7 (2.5-4.9) mg/dl Magnesium 2.1 (1.7-2.4) mg/dl Total Bilirubin 0.6 (0.2-1.0) mg/dl AST 26 (13-39) U/L ALT 21 (7-52) U/L Alkaline Phosphatase 89 (34-104) U/L Ammonia (18-72) umol/L Troponin I High Sens 76.1 H* (0-20) pg/ml Total Protein 6.1 (6.0-8.3) gm/dl Albumin 3.7 (3.4-5.0) gm/dl Globulin 2.4 L (2.5-4.0) gm/dl Albumin/Globulin Ratio 1.5 (0.9-2) Lipase 15 (11-82) U/L TSH 3.905 (0.300-4.500) uIu/ml
[2023-05-18] MEDS ORDERED: PHARMACY GLYCEMIC MGMT CONSULT PRN (17:12)
[2023-05-18 17:35] LABS: Appearance Urine Clear (Clear); Bacteria Urine Automated Negative (Negative); Bilirubin Urine Negative (Negative); Blood Urine 3+ (Negative); Color Urine Yellow; Epithelial Cell Urine Auto 0-5 /lpf (0-5); Glucose Urine UA Negative (Negative); Ketones Urine Negative (Negative); Leukocyte Esterase Urine Negative (Negative); Nitrite Urine Negative (Negative); Protein Urine Trace (Negative); RBC Urine Automated >30 /hpf (0-4); Specific Gravity Urine 1.013 (1.000-1.030); Urobilinogen Urine Negative (Negative)
[2023-05-18 18:35] LABS: Lyme Ab IgG w/WB Rflx Negative (Negative); Lyme Ab IgM w/WB Rflx Negative (Negative)
[2023-05-18] MEDS ORDERED: NON-FORMULARY MEDICATION (Insulin Aspart U-100 [Novolog Flexpen U-100 Insulin] 100 unit/mL SQ SCH ×2 (20:12)
[2023-05-18] MEDS ORDERED: LANTUS PER UNIT CHARGE SQ SCH (21:00)
[2023-05-18] MEDS: CHOLESTYRAMINE LIGHT 4 GM PKT PO SCH (21:11)
[2023-05-18] MEDS: RANOLAZINE 500 MG ER TAB PO SCH (21:12)
[2023-05-18] MEDS: ASPIRIN 81 MG ECTAB PO SCH (21:12)
[2023-05-18] MEDS: ROSUVASTATIN CALCIUM 5 MG TAB PO SCH (21:13)
[2023-05-18] MEDS: PANTOprazole 40 MG TAB PO SCH (21:19)
[2023-05-18] MEDS ORDERED: GLUCAGON FOR INJ 1 MG VIAL IM PRN (22:30)
[2023-05-18] MEDS ORDERED: CARBOHYDRATES FOR HYPOGLYCEMIA PO PRN (22:30)
[2023-05-18] MEDS ORDERED: GLUCOSE 10 TAB/TUBE PO PRN (22:30)
[2023-05-18] MEDS ORDERED: DEXTROSE 50% 50 ML SYRINGE IV PRN (22:30)
[2023-05-18] MEDS ORDERED: GLUCOSE 40% GEL 15 GM TUBE PO PRN (22:30)
--- NOTE | 2023-05-18 22:39 | Urology Consultation ---
Date of Consultation May 18, 2023 Assessment & Plan (1) Urinary retention: The patient has been admitted on the hospitalist service. From a urologic perspective we recommend the following: At the time of my initial encounter with the patient it did not appear as though his Garcia catheter was draining properly. I was concerned that there may have been clots occluding the Garcia catheter so I therefore elected to flush and irrigate the Garcia catheter with the patient's permission. I was able to flush the catheter but was unable to aspirate any of the irrigant that I used to flush the Garcia catheter with raising my concern that the Garcia catheter was either not in proper position or occluded with clot. Therefore with the patient's permission I elected to change the patient's Garcia catheter. I removed the patient's existing Garcia catheter and under sterile conditions easily inserted a new 16 Swedish Garcia catheter. Following insertion of this catheter it flushed and irrigated easily. The urine was blood-tinged but there were no clots or debris. I did have the nursing staff perform a bladder scan following this procedure and his bladder was noted to be empty. -Would recommend maintaining Garcia catheter for the present time. If the Garcia catheter does become occluded it can be manually flushed and irrigated by nursing staff The patient has been initiated on Flomax which should continue It does not appear as though the patient has urinary tract infection so antibiotics are not needed at this time Serial labs to be followed The patient can be monitored for the present time with consideration of a voiding trial at a time to be determined History of Present Illness Reason for Consultation: Urinary retention Attending Physician: Kang Alarcon MD History of Present Illness This is an 88-year-old male who presented to the emergency department as over the past 3 days the patient has had poor oral intake not eating and drinking very much. Patient's felt as though he was somewhat disoriented. Patient's also adds that she feels he has not really been urinating very well over the past 24 hours. I did question patient about urologic symptoms. The patient feels as over the past several weeks he has had a good urine stream. He also feels as though he can empty his bladder completely when he voids. He denies any dysuria and prior to today did not have any hematuria. The patient's was present at bedside and she did add that the patient had a recent hospitalization in April of this year at which time the patient had a urine tract infection where he was noted to have Klebsiella and Corynebacterium. In addition to what was previously noted the patient also denies any back or flank pain. He also denies any suprapubic discomfort. Since arrival to hospital patient has had labs and imaging which independent reviewed. Chest x-ray showed no evidence of pneumonia. A CT scan of the head showed no evidence of acute stroke, hemorrhage, or mass effect, CT scan of the abdomen pelvis showed no acute infectious or inflammatory findings in the abdomen or pelvis. There is no hydronephrosis noted. The patient was noted to have prostamegaly with evidence of chronic bladder outlet obstruction. Labs include a CBC her white blood cell count was 4.5. Hemoglobin and hematocrit were 10.9 and 32.8. Platelet count was 75,000. Chemistry profile showed sodium was 141 with a potassium of 5.3. BUN and creatinine were 59 and 2.7. Review of records does show his baseline creatinine has run from approximate 1.6-2.0 over the past several months. A urinalysis was not indicative of infection. In the emergency department the patient had a bladder scan performed where it appeared that those the patient was retaining urine as he had a bladder scan of over 400 cc. The patient did have a Garcia catheter placed by the nursing staff and he immediately had a drainage of approximately 700 cc of urine. Allergies Allergy/AdvReac Type Severity Reaction Status Date / Time morphine Allergy Unknown HIVES Verified 05/18/23 16:00 pollen extracts Allergy Unknown RUNNY EYES Verified 05/18/23 16:00 shellfish derived Allergy Unknown NECK Verified 05/18/23 16:00 SWELLS-30 YRS AGO WITH CRABS atorvastatin AdvReac Mild SHOULDER Verified 04/29/23 23:13 PAIN Home Medications Medication Instructions Recorded Confirmed Type allopurinol 100 mg tablet 100 mg PO QAM 08/19/18 05/18/23 History insulin aspart U-100 100 unit/mL 14 - 16 unit subcut .BREAKFAST & 08/19/18 05/18/23 History (3 mL) subcutaneous pen (Novolog LUNCH FlexPen U-100 Insulin aspart) insulin glargine 100 unit/mL 34 unit subcut HS 08/19/18 05/18/23 History subcutaneous solution omeprazole 20 mg tablet,delayed 20 mg PO BID 08/19/18 05/18/23 History release rosuvastatin 5 mg tablet 5 mg PO QPM 08/19/18 05/18/23 History aspirin 81 mg tablet,delayed 81 mg PO QPM 04/29/23 05/18/23 History release calcium carbonate 600 mg-vitamin 1 tab PO BID 04/29/23 05/18/23 History D3 10 mcg (400 unit) tablet (Calcium 600 + D(3)) cholestyramine (with sugar) 4 gram 4 g PO AMPM 04/29/23 05/18/23 History powder for susp in a packet (Questran) furosemide 40 mg tablet 40 mg PO AMPM 04/29/23 05/18/23 History ranolazine 500 mg tablet,extended 500 mg PO BID 04/29/23 05/18/23 History release,12 hr tamsulosin 0.4 mg capsule 0.4 mg PO DAILY 04/29/23 05/18/23 History tramadol 50 mg tablet 25 mg PO Q4H PRN pain (scale score 05/04/23 05/18/23 Rx 7-10) #7 tabs insulin aspart U-100 100 unit/mL 18 unit subcut .SUPPER 05/18/23 05/18/23 History (3 mL) subcutaneous pen (Novolog FlexPen U-100 Insulin aspart) Patient History Medical History (Updated 05/18/23 @ 22:36 by Eliot Silva PA-C) CAD (coronary artery disease) Chronic kidney disease (CKD), stage III (moderate) Dementia Diabetes mellitus, type 2 Gout Hearing deficit Hyperlipidemia Hypertension CAMARILLO (nonalcoholic steatohepatitis) On anticoagulant therapy on plavix Osteoarthritis Pac[facility] 05/2018 [facility] (peripheral artery disease) Sleep apnea CPAP--doesn't used as ordered Surgical History History of bilateral cataract extraction History of cardiac cath x2--1997/1999--no stents History of colonoscopy History of coronary angioplasty 1986 History of esophagogastroduodenoscopy (EGD) History of lumbar fusion hardware in place History of tonsillectomy History of tooth extraction S/P CABG x 3 1999 @ [facility] S/P peripheral artery angioplasty with stent placement x2--2014/2015 (total of 2 stents) Family History Mother Family history of diabetes mellitus Social History Smoking Status: Former smoker Second Hand Exposure: Yes (father smoked); Do You Dip or Chew Tobacco: No; Hx Alcohol Use: Yes Alcohol type: wine Hx Substance Use: No Preferred Language: Kiswahili Communication Ability: Effective Pharmacy Tech Required: No Beliefs That Will Affect Care: None Current Living Situation: Spouse Feels Safe at Home: Yes Assistive Devices: Hearing Aid - Bilateral and Walker Review of Systems Constitutional: no fever Ear, Nose, Mouth, Throat: no hearing loss Respiratory: no cough Cardiovascular: no chest pain Gastrointestinal: no abdominal pain, no nausea and no vomiting Genitourinary: + as per Subjective / HPI Musculoskeletal: no back pain Integumentary: no rash Neurologic: no localized weakness Physical Exam Constitutional: WD/WN, vitals as above Eyes: no conjunctival abnormality ENMT: Ears: no hearing impairment Neck: trachea midline Respiratory: normal respiratory effort; no respiratory distress and no labored breathing Cardiovascular: Rate/Rhythm: regular rate and regular rhythm Gastrointestinal (Abdomen): Abdomen is soft and nondistended. It is nonrigid. There is no tenderness to palpation. Musculoskeletal: No calf tender Skin: no rashes Neurologic: moves all extremities Genitourinary: Garcia catheter was noted to be in place at the time my exam. It was draining small amount of bloody urine. Results & Data Vital Signs (Past 12 Hours) Vital Signs Temp Pulse Resp BP Pulse Ox O2 Del Method 05/18/23 20:28 81 05/18/23 17:01 175/78 H 05/18/23 17:01 60 17 97 05/18/23 17:00 63 16 97 05/18/23 16:31 156/80 H 05/18/23 16:31 61 16 96 05/18/23 16:30 60 16 96 05/18/23 16:00 68 15 99 05/18/23 15:30 62 15 96 05/18/23 16:20 60 05/18/23 15:00 60 15 98 05/18/23 14:30 63 16 98 Room Air 05/18/23 14:30 157/77 H 05/18/23 14:00 60 15 93 Room Air 05/18/23 14:00 164/80 H 05/18/23 13:30 66 16 94 Room Air 05/18/23 13:30 167/93 H 05/18/23 13:01 139/79 05/18/23 13:01 66 21 95 Room Air 05/18/23 13:00 65 16 95 Room Air 05/18/23 12:30 69 18 95 Room Air 05/18/23 12:30 162/68 H 05/18/23 12:23 71 05/18/23 12:00 75 21 95 Room Air 05/18/23 12:00 146/81 H 05/18/23 11:50 80 14 96 Room Air 05/18/23 11:49 120/66 05/18/23 12:02 Room Air 05/18/23 12:02 Room Air 05/18/23 11:40 36.4 C L 85 16 90/55 L 97 Room Air PG Care Time/CCT Total # of Minutes Spent Total Time Spent with Patient: Total time spent is greater than 50% in coordination of care (as documented) at patient's floor/unit and/or counseling patient: Coding Level of Care Code 88339 INT INP/OBS CARE 3/75MIN Diagnoses Urinary retention R33.9
[2023-05-19 05:25] LABS: Albumin Globulin Ratio 2.1 (0.9-2); Albumin Level 3.3 gm/dl (3.4-5.0); BUN Creatinine Ratio 21.8 (10-20); Bilirubin,Total 0.6 mg/dl (0.2-1.0); Calcium 9.1 mg/dl (8.6-10.3); Creatinine Clr Calc Pharmacy 21.8 ml/min; Est GFR (African American) 28.1 ml/min; Est GFR (Non-African American) 24.3 ml/min; Globulin 1.6 gm/dl (2.5-4.0); Magnesium 2.1 mg/dl (1.7-2.4); Potassium 4.7 mmol/L (3.5-5.1); Total Protein 4.9 gm/dl (6.0-8.3)
[2023-05-19 05:38] LABS: Basophils # (auto) 0.02 K/uL (0.00-0.20); Basophils % (auto) 0.4 %; Eosinophils # (auto) 0.23 K/uL (0.00-0.50); Eosinophils % (auto) 4.1 %; Hematocrit (blood only) 28.7 % (42.0-52.0); Immature Granulocytes # (auto) 0.03 K/uL (0.01-0.20); Immature Granulocytes % (auto) 0.5 %; Lymphocytes % (auto) 23.1 %; Mean Corpuscular Hemoglobin 32.5 pg (25.0-34.0); Mean Corpuscular Hgb Conc 34.8 g/dL (32.0-36.0); Mean Corpuscular Volume 93.2 fL (80.0-100.0); Mean Platelet Volume 12.1 fL (9.4-12.4); Monocytes # (auto) 0.62 K/uL (0.11-0.59); Neutrophils # (auto) 3.42 K/uL (1.40-6.50); Neutrophils % (auto) 60.9 %; Platelet Count 66 K/uL (130-400); RDW Coefficient of Variation 14.5 % (11.5-14.5); RDW Standard Deviation 47.9 fL (36.4-46.3); Red Blood Count 3.08 M/uL (4.70-6.10); White Blood Count 5.62 K/ul (4.8-10.8)
[2023-05-19] MEDS: INSULIN ASPART PER UNIT CHARGE SC SCH ×4 (08:11→20:15)
[2023-05-19] MEDS: PANTOprazole 40 MG TAB PO SCH ×2 (09:53→20:05)
[2023-05-19] MEDS: CHOLESTYRAMINE LIGHT 4 GM PKT PO SCH ×2 (09:53→20:05)
[2023-05-19] MEDS: TAMSULOSIN HCL 0.4 MG CAP PO SCH (09:54)
[2023-05-19] MEDS: RANOLAZINE 500 MG ER TAB PO SCH ×2 (09:54→20:05)
[2023-05-19 10:45] LABS: Adenovirus F 40/41 PCR Not Detected (NotDetected); Astrovirus PCR Not Detected (NotDetected); Campylobacter PCR Not Detected (NotDetected); Cryptosporidium PCR Not Detected (NotDetected); Cyclospora cayetanensis PCR Not Detected (NotDetected); Entamoeba histolytica PCR Not Detected (NotDetected); Enteroaggregative E.coli(EAEC) Not Detected (NotDetected); Enteropathogenic E.coli (EPEC) Not Detected (NotDetected); Giardia lamblia PCR Not Detected (NotDetected); Norovirus GI/GII PCR Not Detected (NotDetected); Plesiomonas shigelloides PCR Not Detected (NotDetected); Rotavirus A PCR Not Detected (NotDetected); Salmonella PCR Not Detected (NotDetected); Sapovirus PCR Not Detected (NotDetected); Shiga-like Toxin E.coli (STEC) Not Detected (NotDetected); Shigella/Enteroinvasive E.coli Not Detected (NotDetected); Vibrio cholerae PCR Not Detected (NotDetected); Vibrio species PCR Not Detected (NotDetected); Yersinia enterocolitica PCR Not Detected (NotDetected)
[2023-05-19 10:52] LABS: Enterotoxigenic E.coli (ETEC) DETECTED (NotDetected)
[2023-05-19] MEDS: allopurinoL 100 MG TAB PO SCH (10:57)
[2023-05-19] MEDS ORDERED: LANTUS PER UNIT CHARGE SQ ONE (12:00)
--- NOTE | 2023-05-19 13:25 | Pharmacy Report ---
Pharmacy Glycemic Short Note 2 - Date of Service May 19, 2023 - Glycemic Short BSG Results (Last 24 hours): 05/18/23 05/19/23 05/19/23 21:09 04:44 11:42 Glucose 119 H POC Glucose 92 230 H OUTPATIENT ANTIDIABETIC REGIMEN: * Lantus 34 units SC HS * Novolog 14-16 units SC w/ breakfast and lunch, 18 units SC w/ dinner HbA1c: 6.4% (04/29/23) ASSESSMENT: * BRITTANI is a 88 year old male w/ LILA on CKD, recently discharged from hospital on 05/04/23 * SCr on admission of 2.7 mg/dL -> down to 2.34 mg/dL today * Urology consulted * BSGs in 90s on admission - basal insulin withheld * BSG trended up today at lunch to 230 mg/dL. Will initiate Lantus now. * Recent admission data suggests ~50 units of insulin/day is reasonable PLAN FOR INPATIENT GLYCEMIC CONTROL: * Basal insulin * Lantus 0-15 units SQ BID * Reassess in AM * Bolus insulin * NovoLog per scale ACHS or Q6hrs while NPO * Goal Range: Low 110 mg/dL - High 140 mg/dL * Correction Factor: 20 mg/dL/unit * Nutritional / Prandial insulin per carb ratio of 1 unit per 7 grams CHO consumed
--- NOTE | 2023-05-19 14:07 | Hospitalist Progress Note ---
Date of Service May 19, 2023 Assessment & Plan (1) Acute kidney injury superimposed on chronic kidney disease: Plan: LILA on CKD Urinary retention - Confusion ; multifactorial secondary to urinary retention, LILA on CKD, ga stroenteritis in setting of dementia. Diarrhea secondary to enterotoxigenic E. coli 88-year-old male presents to the hospital due to confusion, nausea vomiting and diarrhea. Afebrile, normotensive and saturating well on room air No leukocytosis Hemoglobin slightly lowered from past admission; around 10 g/dl CT head without contrast personally reviewed; no acute intracranial abnormal ity. Chest x-ray personally reviewed; no acute finding. CT abdomen pelvis; no acute intra-abdominal finding. Prostatomegaly present with evidence of chronic bladder obstruction. Creatinine down trended with placement of Garcia; baseline creatinine around 2. Continue to monitor Garcia output. Bladder scan every 8 hours check for retention We will start him on empiric ceftriaxone for now. Obtain blood cultures. Pancytopenia - hx of anemia - Anemia and thrombocytopenia possibly secondary to recent use of linezolid - tick borne panel also obtained in the ED - Peripheral blood smear pending - Obtain reticulocyte count, LDH and haptoglobin and blood culture. Chronic conditions hx CAD status post CABG hx PAD status post stent SSS status post PPM hypertension hyperlipidemia statin Rx - for above conditions - cont. home meds BRIAN CPAP noncompliance DM2 insulin requiring Current A1c 6.4% decrease home insulin given poor oral intake, glycemic pharmacy consult Inpt BS goal 110- 40, carb count coverage Time spent evaluating patient, direct bedside care, chart review, placing orders, interpretation of diagnostic studies, discussion with consultants, patient, and family members, as well as other required patient management activities is 60 minutes. Please note the above document was generated using voice recognition software. It may contain grammatical, syntax or spelling errors. Any formal questions or concerns about the content, text or information contained within the body of this dictation should be directly addressed to the provider for clarification Admission and Anticipated Discharge Date Admission Date: May 18, 2023 Subjective Patient seen and examined at bedside. His is also at bedside. Reports that patient is much more alert today. Patient's weakness has also improved. Garcia is in place with red urine. No clots appreciated. Review of Systems Review of Systems: All systems reviewed & are unremarkable except as noted in Subjective Physical Exam Physical Exam: Constitutional: Patient awake, oriented to self and place. Not in any distress. Respiratory: Bilateral basal breath sound Cardiovascular: RRR, no murmur, no edema Vessels: no JVD or carotid bruit Chest: normal inspection of chest Abdomen: normal bowel sounds, soft, nontender, no hepatosplenomegaly. Garcia in place and draining red urine. Musculoskeletal: no cyanosis or clubbing, extremities motor strength 5/5 Skin: no rashes, warm and dry normal turgor Neurologic: PERRL, EOMI, accommodation nl, no face palsy, no dysarthria CN's II- XI intact bilaterally and moves all extremities Psychiatric: A+Ox3, euthymic affect Results & Data Results & Data Vital Signs (Past 12 Hours) Vital Signs Temp Pulse Resp BP Pulse Ox O2 Del Method 05/19/23 09:00 36.8 C 72 18 153/67 H 95 Room Air 05/19/23 03:30 36.7 C 75 16 119/58 L 98 Room Air Laboratory Results Laboratory Results WBC 5.62 K/ul (4.8-10.8) 05/19/23 04:44 RBC 3.08 M/uL (4.70-6.10) L 05/19/23 04:44 Hgb 10.0 g/dl (14.0-18.0) L 05/19/23 04:44 Hct 28.7 % (42.0-52.0) L 05/19/23 04:44 MCV 93.2 fL (80.0-100.0) 05/19/23 04:44 MCH 32.5 pg (25.0-34.0) 05/19/23 04:44 MCHC 34.8 g/dL (32.0-36.0) 05/19/23 04:44 RDW Std Deviation 47.9 fL (36.4-46.3) H 05/19/23 04:44 RDW Coeff of Dave 14.5 % (11.5-14.5) 05/19/23 04:44 Plt Count 66 K/uL (130-400) L 05/19/23 04:44 MPV 12.1 fL (9.4-12.4) 05/19/23 04:44 Immature Gran % (Auto) 0.5 % 05/19/23 04:44 Neut % (Auto) 60.9 % 05/19/23 04:44 Lymph % (Auto) 23.1 % 05/19/23 04:44 [place] % (Auto) 11.0 % 05/19/23 04:44 Eos % (Auto) 4.1 % 05/19/23 04:44 Baso % (Auto) 0.4 % 05/19/23 04:44 Neut # (Auto) 3.42 K/uL (1.40-6.50) 05/19/23 04:44 Lymph # (Auto) 1.30 K/uL (1.20-3.40) 05/19/23 04:44 [place] # (Auto) 0.62 K/uL (0.11-0.59) H 05/19/23 04:44 Eos # (Auto) 0.23 K/uL (0.00-0.50) 05/19/23 04:44 Baso # (Auto) 0.02 K/uL (0.00-0.20) 05/19/23 04:44 Immature Gran # (Auto) 0.03 K/uL (0.01-0.20) 05/19/23 04:44 Platelet Estimate Decreased (Normal) L 05/18/23 12:05 Polychromasia 1+ 05/18/23 12:05 Ovalocytes 1+ 05/18/23 12:05 Sodium 140 mmol/L (136-145) 05/19/23 04:44 Potassium 4.7 mmol/L (3.5-5.1) 05/19/23 04:44 Chloride 114 mmol/L (98-107) H 05/19/23 04:44 Carbon Dioxide 22 mmol/L (21-32) 05/19/23 04:44 Anion Gap 4 (3-11) 05/19/23 04:44 BUN 51 mg/dl (6-23) H 05/19/23 04:44 Creatinine 2.34 mg/dl (0.6-1.4) H D 05/19/23 04:44 Est Cr Clr Drug Dosing 21.8 ml/min 05/19/23 04:44 Est GFR ( Amer) 28.1 ml/min 05/19/23 04:44 Est GFR (Non-Af Amer) 24.3 ml/min 05/19/23 04:44 BUN/Creatinine Ratio 21.8 (10-20) H 05/19/23 04:44 Glucose 119 mg/dl (70-99(Fasting)) H 05/19/23 04:44 POC Glucose 230 mg/dl (70-99) H 05/19/23 11:42 Calcium 9.1 mg/dl (8.6-10.3) 05/19/23 04:44 Phosphorus 3.0 mg/dl (2.5-4.9) 05/19/23 04:44 Magnesium 2.1 mg/dl (1.7-2.4) 05/19/23 04:44 Total Bilirubin 0.6 mg/dl (0.2-1.0) 05/19/23 04:44 AST 23 U/L (13-39) 05/19/23 04:44 ALT 18 U/L (7-52) 05/19/23 04:44 Alkaline Phosphatase 89 U/L (34-104) 05/19/23 04:44 Ammonia 22.0 umol/L (18-72) 05/18/23 12:05 Troponin I High Sens 72.4 pg/ml (0-20) H* 05/18/23 13:56 Total Protein 4.9 gm/dl (6.0-8.3) L D 05/19/23 04:44 Albumin 3.3 gm/dl (3.4-5.0) L 05/19/23 04:44 Globulin 1.6 gm/dl (2.5-4.0) L 05/19/23 04:44 Albumin/Globulin Ratio 2.1 (0.9-2) H 05/19/23 04:44 Lipase 15 U/L (11-82) 05/18/23 12:05 TSH 3.905 uIu/ml (0.300-4.500) 05/18/23 12:05 Urine Color Yellow 05/18/23 17:22 Urine Appearance Clear (Clear) 05/18/23 17:22 Urine pH 5.0 (4.5-7.5) 05/18/23 17:22 Ur Specific [place] 1.013 (1.000-1.030) 05/18/23 17:22 Urine Protein Trace (Negative) H 05/18/23 17:22 Urine Glucose (UA) Negative (Negative) 05/18/23 17:22 Urine Ketones Negative (Negative) 05/18/23 17:22 Urine Blood 3+ (Negative) H 05/18/23 17:22 Urine Nitrite Negative (Negative) 05/18/23 17:22 Urine Bilirubin Negative (Negative) 05/18/23 17:22 Urine Urobilinogen Negative (Negative) 05/18/23 17:22 Ur Leukocyte Esterase Negative (Negative) 05/18/23 17:22 Urine WBC (Auto) 1-5 /hpf (0-5) 05/18/23 17:22 Urine RBC (Auto) >30 /hpf (0-4) H 05/18/23 17:22 U Hyaline Cast (Auto) 1-5 /lpf (0-5) 05/18/23 17:22 U Epithel Cells (Auto) 0-5 /lpf (0-5) 05/18/23 17:22 Urine Bacteria (Auto) Negative (Negative) 05/18/23 17:22 Stl C. cayetanensis PCR Not Detected (NotDetected) 05/19/23 Unknown Stool Rotavirus A PCR Not Detected (NotDetected) 05/19/23 Unknown Stl Adenov F 40/41 PCR Not Detected (NotDetected) 05/19/23 Unknown Stool Astrovirus (PCR) Not Detected (NotDetected) 05/19/23 Unknown Stool Campylobacter PCR Not Detected (NotDetected) 05/19/23 Unknown Stl C. diff Tox B Gene Negative Cdiff Gene (Neg) 05/19/23 Unknown Stool Cryptosporidium PCR Not Detected (NotDetected) 05/19/23 Unknown Stl E.coli Shiga Tox PCR Not Detected (NotDetected) 05/19/23 Unknown Stl Enterotoxigenic E PCR DETECTED (NotDetected) A* 05/19/23 Unknown Stool EPEC (PCR) Not Detected (NotDetected) 05/19/23 Unknown Stool EAEC (PCR) Not Detected (NotDetected) 05/19/23 Unknown Stl E. histolytica PCR Not Detected (NotDetected) 05/19/23 Unknown Stool Giardia Lamblia PCR Not Detected (NotDetected) 05/19/23 Unknown Stool Salmonella PCR Not Detected (NotDetected) 05/19/23 Unknown Stool Sapovirus (PCR) Not Detected (NotDetected) 05/19/23 Unknown Stl P. shigelloides PCR Not Detected (NotDetected) 05/19/23 Unknown Stl Shigella/EIEC PCR Not Detected (NotDetected) 05/19/[address].enterocolitica PCR Not Detected (NotDetected) 05/19/23 Unknown Stool Vibrio (PCR) Not Detected (NotDetected) 05/19/23 Unknown Stl Vibrio cholerae PCR Not Detected (NotDetected) 05/19/23 Unknown Stl Norovirus GI/GII PCR Not Detected (NotDetected) 05/19/23 Unknown Anaplasma Smear See Comment 05/18/23 17:03 Babesia Smear See Comment 05/18/23 17:03 Lyme Disease IgG Ab Negative (Negative) 05/18/23 17:39 Lyme Disease IgM Ab Negative (Negative) 05/18/23 17:39 SARS-CoV-2, RNA, NAAT NEGATIVE (NEGATIVE) 05/18/23 16:06 Impressions Chest X-Ray 05/18/23 11:50 XR chest 1V portable HISTORY: Chest pain, nonspecific COMPARISON: Chest CT 04/29/2023. FINDINGS: There is a left-sided dual-chamber pacemaker. No pneumothorax. No pleural effusions. A few bibasilar linear densities favor subsegmental atelectasis or scarring. This is similar to the prior study. No new focal lung consolidations to suggest a pneumonia. No evidence for pulmonary edema. The heart remains mildly enlarged. There are postoperative changes and a small right azygos lobe again noted. IMPRESSION: No significant change compared to the prior study. No acute process. ACT 112: Negative or not required by law. Electronically signed by: Benedicto Salas M.D. 05/18/2023 2:[address] 05/18/23 12:21 CT SCAN OF THE BRAIN WITHOUT IV CONTRAST CLINICAL HISTORY: Change in mental status. COMPARISON STUDY: CT of the brain dated 04/29/2023. TECHNIQUE: Unenhanced axial CT scan of the brain is performed from the vertex to the skull base. A dose lowering technique was utilized adhering to the princ iplNader. FINDINGS: Brain parenchyma: There is age-related involutional change noting moderate subcortical and periventricular microangiopathic disease. There is no hemorrhage, mass effect, or evidence of acute territorial ischemia by CT criteria. Braun-white matter differentiation is preserved. No extra-axial fluid collection is seen. Ventricles, sulci, cisterns: Prominent secondary to involutional change. Intracranial vasculature: There is atherosclerotic calcification of the cavernous carotid and vertebral artery. Calvarium: Unremarkable. Sinuses and mastoids: There is limited opacification of the left maxillary sinus. Thickening and sclerosis of the sinus wall indicates chronicity. The remaining visualized paranasal sinuses are clear. The mastoid air cells are well pneumatized. Orbits: The bony orbits are grossly intact. There are bilateral ocular lens implants. IMPRESSION: There is no hemorrhage, mass effect, or evidence of acute territorial ischemia by CT criteria. ACT 112: Negative or not required by law. Electronically signed by: Eddie Dillon M.D. 05/18/2023 1:28 PM Abdomen/Pelvis CT 05/18/23 13:11 CT SCAN OF THE ABDOMEN AND PELVIS WITHOUT IV CONTRAST CLINICAL HISTORY: Acute on chronic renal insufficiency. COMPARISON STUDY: Abdominal CT dated 04/30/2023. TECHNIQUE: CT scan of the abdomen and pelvis is performed from the lung bases to the proximal femora. Images are reviewed in the axial, sagittal, and coronal planes. IV contrast was not administered for this examination. A dose lowering technique was utilized adhering to the principles of ALARA. CT DOSE: 1991.92 mGy.cm FINDINGS: Lung bases: The patient is status post midline sternotomy. The heart is enlarged and without pericardial effusion. Pacemaker leads are in place. The coronary arteries are densely calcified. There is diminished attenuation of the cardiac blood pool as compared to the myocardium suggesting anemia. The lung bases are clear noting bibasilar scarring/atelectasis. There is a small hiatal hernia. Liver: The unenhanced liver is normal in size, contour, and attenuation. There is no intrahepatic biliary ductal dilatation. Gallbladder: There are layering calcified gallstones with no CT evidence of acute cholecystitis. Spleen: Normal in size and attenuation. 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 Pancreas: The unenhanced pancreas is moderately atrophic. Scattered parenchymal calcifications suggest chronic pancreatitis. Adrenal glands: Unremarkable. Kidneys: The unenhanced kidneys demonstrate cortical atrophy and are without hydronephrosis. There is a punctate nonobstructing right renal calculus. No left renal calculi are identified and no ureteral stone is seen. A 2 cm cyst is noted in the right upper pole. Abdominal vasculature: There is advanced atherosclerotic calcification and mild ectasia of the abdominal aorta. Bowel: There are scattered colonic diverticula without CT evidence of acute diverticulitis. No bowel obstruction is seen. The appendix is well-visualized and normal. Peritoneum: There is no intraperitoneal free air or abdominal ascites. There is a fat-containing umbilical hernia. Lymphadenopathy: None. Pelvic viscera: Evaluation of the pelvis is degraded by streak artifact from a left hip arthroplasty. The prostate gland is enlarged and heterogeneous. The bladder is distended, and the wall is thickened/trabeculated indicating chronic outlet obstruction. There are bilateral fat-containing groin hernias. Skeletal structures: The skeletal structures are osteopenic. There is advanced lumbosacral spondylosis with laminectomy change throughout the lumbar spine. No lytic or blastic lesions are seen. A left hip arthroplasty is in place. There are subacute left anterior 6th and 7th rib fractures. IMPRESSION: 1. No acute infectious or inflammatory findings are identified in the abdomen or pelvis. 2. The kidneys demonstrate cortical atrophy and are without hydronephrosis. 3. Punctate nonobstructing right renal calculus. 4. Subacute left anterior rib fractures as above. 5. Cardiomegaly and cardiac pacemaker. 6. Prostatomegaly with evidence of chronic bladder outlet obstruction. 7. Cholelithiasis. 8. Additional findings as above. ACT 112: Negative or not required by law. Electronically signed by: Eddie Dillon M.D. 05/18/2023 2:18 PM
[2023-05-19 15:12] LABS: Reticulocyte % 0.2 % (0.5-2.0); Reticulocytes # 0.01 10^6/uL (0.02-0.10)
[2023-05-19] MEDS: cefTRIAXone SODIUM 2,000 MG in DEXTROSE 5% 50 ML IV SCH (16:09)
[2023-05-19] MEDS: ASPIRIN 81 MG ECTAB PO SCH (20:05)
[2023-05-19] MEDS: ROSUVASTATIN CALCIUM 5 MG TAB PO SCH (20:05)
[2023-05-19] MEDS ORDERED: LANTUS PER UNIT CHARGE SQ SCH (21:00)
[2023-05-19] MEDS: MELATONIN 3 MG TAB PO PRN (21:56)
--- NOTE | 2023-05-19 22:53 | Electrocardiogram Report ---
Test Reason : Blood Pressure : / mmHG Vent. Rate : 074 BPM Atrial Rate : 074 BPM P-R Int : 224 ms QRS Dur : 168 ms QT Int : 448 ms P-R-T Axes : 006 -74 011 degrees QTc Int : 497 ms Sinus rhythm with 1st degree A-V block Left axis deviation Right bundle branch block Abnormal ECG When compared with ECG of 14-MAY-2018 07:11, Sinus rhythm has replaced atrial pacing Confirmed by Iraj Chiu ([id number]) on 05/19/2023 10:53:10 PM Referred By: REFERRED SELF Confirmed By:Iraj Chiu
[2023-05-20] MEDS: allopurinoL 100 MG TAB PO SCH (09:14)
[2023-05-20] MEDS: TAMSULOSIN HCL 0.4 MG CAP PO SCH (09:14)
[2023-05-20] MEDS: PANTOprazole 40 MG TAB PO SCH ×2 (09:14→20:04)
[2023-05-20] MEDS: CHOLESTYRAMINE LIGHT 4 GM PKT PO SCH ×2 (09:15→20:05)
[2023-05-20] MEDS: RANOLAZINE 500 MG ER TAB PO SCH ×2 (09:15→20:05)
[2023-05-20] MEDS: INSULIN ASPART PER UNIT CHARGE SC SCH ×4 (09:19→21:22)
--- NOTE | 2023-05-20 11:41 | Pharmacy Report ---
Pharmacy Glycemic Short Note 2 - Date of Service May 20, 2023 - Glycemic Short BSG Results (Last 24 hours): 05/19/23 05/19/23 05/19/23 11:42 17:30 17:31 POC Glucose 230 H 68 L* 67 L* 05/19/23 05/20/23 20:06 07:49 POC Glucose 89 117 H OUTPATIENT ANTIDIABETIC REGIMEN: * Lantus 34 units SC HS * Novolog 14-16 units SC w/ breakfast and lunch, 18 units SC w/ dinner HbA1c: 6.4% (04/29/23) ASSESSMENT: 05/20: * Patient received total 26 units of insulin yesterday- 15 units basal and 11 units bolus. * BSG trended down from 230 mg/dl pre-lunch yesterday to 67 mg/dl pre-dinner. * Fasting BSG today was 117 mg/dl. * Basal dose held this AM and Novolog parameters loosened. Will continue with basal dose scale at HS based on BSG. 05/19: * BRITTANI is a 88 year old male w/ LILA on CKD, recently discharged from hospital on 05/04/23 * SCr on admission of 2.7 mg/dL -> down to 2.34 mg/dL today * Urology consulted * BSGs in 90s on admission - basal insulin withheld * BSG trended up today at lunch to 230 mg/dL. Will initiate Lantus now. * Recent admission data suggests ~50 units of insulin/day is reasonable PLAN FOR INPATIENT GLYCEMIC CONTROL: * Basal insulin * Lantus 0-15 units SQ HS based on BSG * Bolus insulin * NovoLog per scale ACHS or Q6hrs while NPO * Goal Range: Low 110 mg/dL - High 140 mg/dL * Correction Factor: 25 mg/dL/unit * Nutritional / Prandial insulin per carb ratio of 1 unit per 10 grams CHO consumed
--- NOTE | 2023-05-20 13:23 | Hospitalist Progress Note ---
Date of Service May 20, 2023 Assessment & Plan (1) Acute kidney injury superimposed on chronic kidney disease: Plan: LILA on CKD Urinary retention - Confusion ; multifactorial secondary to urinary retention, LILA on CKD, ga stroenteritis in setting of dementia. Diarrhea secondary to enterotoxigenic E. coli 88-year-old male presents to the hospital due to confusion, nausea vomiting and diarrhea. Afebrile, normotensive and saturating well on room air No leukocytosis Hemoglobin slightly lowered from past admission; around 10 g/dl CT head without contrast personally reviewed; no acute intracranial abnormal ity. Chest x-ray personally reviewed; no acute finding. CT abdomen pelvis; no acute intra-abdominal finding. Prostatomegaly present with evidence of chronic bladder obstruction. Creatinine down trended with placement of Garcia; baseline creatinine around 2. Continue to monitor Garcia output. Bladder scan every 8 hours check for retention We will start him on empiric ceftriaxone for now. Obtain blood cultures. Awaiting today's lab. Pancytopenia - hx of anemia - Anemia and thrombocytopenia possibly secondary to recent use of linezolid - tick borne panel also obtained in the ED - Peripheral blood smear pending - Reticulocyte count is just 0.2% suggesting decreased bone marrow production. Chronic conditions hx CAD status post CABG hx PAD status post stent SSS status post PPM hypertension hyperlipidemia statin Rx - for above conditions - cont. home meds BRIAN CPAP noncompliance DM2 insulin requiring Current A1c 6.4% decrease home insulin given poor oral intake, glycemic pharmacy consult Inpt BS goal 110- 40, carb count coverage Full code DVT prophylaxis on hold due to thrombocytopenia PT OT ordered. Time spent evaluating patient, direct bedside care, chart review, placing orders, interpretation of diagnostic studies, discussion with consultants, patient, and family members, as well as other required patient management activities is 60 minutes. Please note the above document was generated using voice recognition software. It may contain grammatical, syntax or spelling errors. Any formal questions or concerns about the content, text or information contained within the body of this dictation should be directly addressed to the provider for clarification Admission and Anticipated Discharge Date Admission Date: May 18, 2023 Subjective Patient seen and examined at bedside. He is sitting at the side of the bed; not in any distress. He is eating breakfast. Garcia in place draining clear urine. Review of Systems Review of Systems: All systems reviewed & are unremarkable except as noted in Subjective Physical Exam Physical Exam: Constitutional: Patient awake, oriented to self and place. Not in any distress. Respiratory: Bilateral vesicular breath sound. Cardiovascular: RRR, no murmur, no edema Vessels: no JVD or carotid bruit Chest: normal inspection of chest Abdomen: normal bowel sounds, soft, nontender, no hepatosplenomegaly. Garcia in place and draining red urine. Musculoskeletal: no cyanosis or clubbing, extremities motor strength 5/5 Skin: no rashes, warm and dry normal turgor Neurologic: PERRL, EOMI, accommodation nl, no face palsy, no dysarthria CN's II- XI intact bilaterally and moves all extremities Psychiatric: A+Ox3, euthymic affect Results & Data Results & Data Vital Signs (Past 12 Hours) Vital Signs Temp Pulse Pulse Resp BP BP Pulse Ox 05/20/23 11:31 36.5 C 77 16 155/71 H 99 05/20/23 07:36 05/20/23 07:17 36.5 C 76 18 132/61 98 05/20/23 07:02 67 05/20/23 03:03 36.6 C 87 18 155/75 H 99 O2 Del Method 05/20/23 11:31 Room Air 05/20/23 07:36 Room Air 05/20/23 07:17 Room Air 05/20/23 07:02 05/20/23 03:03 Room Air Laboratory Results Laboratory Results WBC 5.62 K/ul (4.8-10.8) 05/19/23 04:44 RBC 3.08 M/uL (4.70-6.10) L 05/19/23 04:44 Hgb 10.0 g/dl (14.0-18.0) L 05/19/23 04:44 Hct 28.7 % (42.0-52.0) L 05/19/23 04:44 MCV 93.2 fL (80.0-100.0) 05/19/23 04:44 MCH 32.5 pg (25.0-34.0) 05/19/23 04:44 MCHC 34.8 g/dL (32.0-36.0) 05/19/23 04:44 RDW Std Deviation 47.9 fL (36.4-46.3) H 05/19/23 04:44 RDW Coeff of Dave 14.5 % (11.5-14.5) 05/19/23 04:44 Plt Count 66 K/uL (130-400) L 05/19/23 04:44 MPV 12.1 fL (9.4-12.4) 05/19/23 04:44 Immature Gran % (Auto) 0.5 % 05/19/23 04:44 Neut % (Auto) 60.9 % 05/19/23 04:44 Lymph % (Auto) 23.1 % 05/19/23 04:44 [place] % (Auto) 11.0 % 05/19/23 04:44 Eos % (Auto) 4.1 % 05/19/23 04:44 Baso % (Auto) 0.4 % 05/19/23 04:44 Reticulocyte % (Auto) 0.2 % (0.5-2.0) L 05/19/23 14:34 Neut # (Auto) 3.42 K/uL (1.40-6.50) 05/19/23 04:44 Lymph # (Auto) 1.30 K/uL (1.20-3.40) 05/19/23 04:44 [place] # (Auto) 0.62 K/uL (0.11-0.59) H 05/19/23 04:44 Eos # (Auto) 0.23 K/uL (0.00-0.50) 05/19/23 04:44 Baso # (Auto) 0.02 K/uL (0.00-0.20) 05/19/23 04:44 Reticulocyte # 0.01 10^6/uL (0.02-0.10) L 05/19/23 14:34 Immature Gran # (Auto) 0.03 K/uL (0.01-0.20) 05/19/23 04:44 Platelet Estimate Decreased (Normal) L 05/18/23 12:05 Polychromasia 1+ 05/18/23 12:05 Ovalocytes 1+ 05/18/23 12:05 Peripher Smr Path Cons 05/18/23 17:39 Sodium 140 mmol/L (136-145) 05/19/23 04:44 Potassium 4.7 mmol/L (3.5-5.1) 05/19/23 04:44 Chloride 114 mmol/L (98-107) H 05/19/23 04:44 Carbon Dioxide 22 mmol/L (21-32) 05/19/23 04:44 Anion Gap 4 (3-11) 05/19/23 04:44 BUN 51 mg/dl (6-23) H 05/19/23 04:44 Creatinine 2.34 mg/dl (0.6-1.4) H D 05/19/23 04:44 Est Cr Clr Drug Dosing 21.8 ml/min 05/19/23 04:44 Est GFR ( Amer) 28.1 ml/min 05/19/23 04:44 Est GFR (Non-Af Amer) 24.3 ml/min 05/19/23 04:44 BUN/Creatinine Ratio 21.8 (10-20) H 05/19/23 04:44 Glucose 119 mg/dl (70-99(Fasting)) H 05/19/23 04:44 POC Glucose 174 mg/dl (70-99) H 05/20/23 11:44 Calcium 9.1 mg/dl (8.6-10.3) 05/19/23 04:44 Phosphorus 3.0 mg/dl (2.5-4.9) 05/19/23 04:44 Magnesium 2.1 mg/dl (1.7-2.4) 05/19/23 04:44 Total Bilirubin 0.6 mg/dl (0.2-1.0) 05/19/23 04:44 AST 23 U/L (13-39) 05/19/23 04:44 ALT 18 U/L (7-52) 05/19/23 04:44 Alkaline Phosphatase 89 U/L (34-104) 05/19/23 04:44 Ammonia 22.0 umol/L (18-72) 05/18/23 12:05 Lactate Dehydrogenase 202 U/L (86-244) 05/19/23 04:44 Troponin I High Sens 72.4 pg/ml (0-20) H* 05/18/23 13:56 Total Protein 4.9 gm/dl (6.0-8.3) L D 05/19/23 04:44 Albumin 3.3 gm/dl (3.4-5.0) L 05/19/23 04:44 Globulin 1.6 gm/dl (2.5-4.0) L 05/19/23 04:44 Albumin/Globulin Ratio 2.1 (0.9-2) H 05/19/23 04:44 Lipase 15 U/L (11-82) 05/18/23 12:05 TSH 3.905 uIu/ml (0.300-4.500) 05/18/23 12:05 Urine Color Yellow 05/18/23 17:22 Urine Appearance Clear (Clear) 05/18/23 17:22 Urine pH 5.0 (4.5-7.5) 05/18/23 17:22 Ur Specific [place] 1.013 (1.000-1.030) 05/18/23 17:22 Urine Protein Trace (Negative) H 05/18/23 17:22 Urine Glucose (UA) Negative (Negative) 05/18/23 17:22 Urine Ketones Negative (Negative) 05/18/23 17:22 Urine Blood 3+ (Negative) H 05/18/23 17:22 Urine Nitrite Negative (Negative) 05/18/23 17:22 Urine Bilirubin Negative (Negative) 05/18/23 17:22 Urine Urobilinogen Negative (Negative) 05/18/23 17:22 Ur Leukocyte Esterase Negative (Negative) 05/18/23 17:22 Urine WBC (Auto) 1-5 /hpf (0-5) 05/18/23 17:22 Urine RBC (Auto) >30 /hpf (0-4) H 05/18/23 17:22 U Hyaline Cast (Auto) 1-5 /lpf (0-5) 05/18/23 17:22 U Epithel Cells (Auto) 0-5 /lpf (0-5) 05/18/23 17:22 Urine Bacteria (Auto) Negative (Negative) 05/18/23 17:22 Stl C. cayetanensis PCR Not Detected (NotDetected) 05/19/23 Unknown Stool Rotavirus A PCR Not Detected (NotDetected) 05/19/23 Unknown Stl Adenov F 40/41 PCR Not Detected (NotDetected) 05/19/23 Unknown Stool Astrovirus (PCR) Not Detected (NotDetected) 05/19/23 Unknown Stool Campylobacter PCR Not Detected (NotDetected) 05/19/23 Unknown Stl C. diff Tox B Gene Negative Cdiff Gene (Neg) 05/19/23 Unknown Stool Cryptosporidium PCR Not Detected (NotDetected) 05/19/23 Unknown Stl E.coli Shiga Tox PCR Not Detected (NotDetected) 05/19/23 Unknown Stl Enterotoxigenic E PCR DETECTED (NotDetected) A* 05/19/23 Unknown Stool EPEC (PCR) Not Detected (NotDetected) 05/19/23 Unknown Stool EAEC (PCR) Not Detected (NotDetected) 05/19/23 Unknown Stl E. histolytica PCR Not Detected (NotDetected) 05/19/23 Unknown Stool Giardia Lamblia PCR Not Detected (NotDetected) 05/19/23 Unknown Stool Salmonella PCR Not Detected (NotDetected) 05/19/23 Unknown Stool Sapovirus (PCR) Not Detected (NotDetected) 05/19/23 Unknown Stl P. shigelloides PCR Not Detected (NotDetected) 05/19/23 Unknown Stl Shigella/EIEC PCR Not Detected (NotDetected) 05/19/[address].enterocolitica PCR Not Detected (NotDetected) 05/19/23 Unknown Stool Vibrio (PCR) Not Detected (NotDetected) 05/19/23 Unknown Stl Vibrio cholerae PCR Not Detected (NotDetected) 05/19/23 Unknown Stl Norovirus GI/GII PCR Not Detected (NotDetected) 05/19/23 Unknown Anaplasma Smear See Comment 05/18/23 17:03 Babesia Smear See Comment 05/18/23 17:03 Lyme Disease IgG Ab Negative (Negative) 05/18/23 17:39 Lyme Disease IgM Ab Negative (Negative) 05/18/23 17:39 SARS-CoV-2, RNA, NAAT NEGATIVE (NEGATIVE) 05/18/23 16:06 Impressions Chest X-Ray 05/18/23 11:50 XR chest 1V portable HISTORY: Chest pain, nonspecific COMPARISON: Chest CT 04/29/2023. FINDINGS: There is a left-sided dual-chamber pacemaker. No pneumothorax. No pleural effusions. A few bibasilar linear densities favor subsegmental atelectasis or scarring. This is similar to the prior study. No new focal lung consolidations to suggest a pneumonia. No evidence for pulmonary edema. The heart remains mildly enlarged. There are postoperative changes and a small right azygos lobe again noted. IMPRESSION: No significant change compared to the prior study. No acute process. ACT 112: Negative or not required by law. Electronically signed by: Benedicto Salas M.D. 05/18/2023 2:[address] 05/18/23 12:21 CT SCAN OF THE BRAIN WITHOUT IV CONTRAST CLINICAL HISTORY: Change in mental status. COMPARISON STUDY: CT of the brain dated 04/29/2023. TECHNIQUE: Unenhanced axial CT scan of the brain is performed from the vertex to the skull base. A dose lowering technique was utilized adhering to the principles of ALARA. FINDINGS: Brain parenchyma: There is age-related involutional change noting moderate subcortical and periventricular microangiopathic disease. There is no hemorrhage, mass effect, or evidence of acute territorial ischemia by CT crite salud. Braun-white matter differentiation is preserved. No extra-axial fluid collection is seen. Ventricles, sulci, cisterns: Prominent secondary to involutional change. Intracranial vasculature: There is atherosclerotic calcification of the cavernous carotid and vertebral artery. Calvarium: Unremarkable. Sinuses and mastoids: There is limited opacification of the left maxillary sinus. Thickening and sclerosis of the sinus wall indicates chronicity. The remaining visualized paranasal sinuses are clear. The mastoid air cells are well pneumatized. Orbits: The bony orbits are grossly intact. There are bilateral ocular lens implants. IMPRESSION: There is no hemorrhage, mass effect, or evidence of acute territorial ischemia by CT criteria. ACT 112: Negative or not required by law. Electronically signed by: Eddie Dillon M.D. 05/18/2023 1:28 PM Abdomen/Pelvis CT 05/18/23 13:11 CT SCAN OF THE ABDOMEN AND PELVIS WITHOUT IV CONTRAST CLINICAL HISTORY: Acute on chronic renal insufficiency. COMPARISON STUDY: Abdominal CT dated 04/30/2023. TECHNIQUE: CT scan of the abdomen and pelvis is performed from the lung bases to the proximal femora. Images are reviewed in the axial, sagittal, and coronal planes. IV contrast was not administered for this examination. A dose lowering technique was utilized adhering to the principles of ALARA. CT DOSE: 1990.92 mGy.cm FINDINGS: Lung bases: The patient is status post midline sternotomy. The heart is enlarged and without pericardial effusion. Pacemaker leads are in place. The coronary ar teries are densely calcified. There is diminished attenuation of the cardiac blood pool as compared to the myocardium suggesting anemia. The lung bases are clear noting bibasilar scarring/atelectasis. There is a small hiatal hernia. Liver: The unenhanced liver is normal in size, contour, and attenuation. There is no intrahepatic biliary ductal dilatation. Gallbladder: There are layering calcified gallstones with no CT evidence of acute cholecystitis. Spleen: Normal in size and attenuation. 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 Pancreas: The unenhanced pancreas is moderately atrophic. Scattered parenchymal calcifications suggest chronic pancreatitis. Adrenal glands: Unremarkable. Kidneys: The unenhanced kidneys demonstrate cortical atrophy and are without hydronephrosis. There is a punctate nonobstructing right renal calculus. No left renal calculi are identified and no ureteral stone is seen. A 2 cm cyst is noted in the right upper pole. Abdominal vasculature: There is advanced atherosclerotic calcification and mild ectasia of the abdominal aorta. Bowel: There are scattered colonic diverticula without CT evidence of acute diverticulitis. No bowel obstruction is seen. The appendix is well-visualized and normal. Peritoneum: There is no intraperitoneal free air or abdominal ascites. There is a fat-containing umbilical hernia. Lymphadenopathy: None. Pelvic viscera: Evaluation of the pelvis is degraded by streak artifact from a left hip arthroplasty. The prostate gland is enlarged and heterogeneous. The bladder is distended, and the wall is thickened/trabeculated indicating chronic outlet obstruction. There are bilateral fat-containing groin hernias. Skeletal structures: The skeletal structures are osteopenic. There is advanced lumbosacral spondylosis with laminectomy change throughout the lumbar spine. No lytic or blastic lesions are seen. A left hip arthroplasty is in place. There are subacute left anterior 6th and 7th rib fractures. IMPRESSION: 1. No acute infectious or inflammatory findings are identified in the abdomen or pelvis. 2. The kidneys demonstrate cortical atrophy and are without hydronephrosis. 3. Punctate nonobstructing right renal calculus. 4. Subacute left anterior rib fractures as above. 5. Cardiomegaly and cardiac pacemaker. 6. Prostatomegaly with evidence of chronic bladder outlet obstruction. 7. Cholelithiasis. 8. Additional findings as above. ACT 112: Negative or not required by law. Electronically signed by: Eddie Dillon M.D. 05/18/2023 2:18 PM
[2023-05-20] MEDS: cefTRIAXone SODIUM 2,000 MG in DEXTROSE 5% 50 ML IV SCH (14:40)
[2023-05-20 15:10] LABS: Basophils # (auto) 0.01 K/uL (0.00-0.20); Basophils % (auto) 0.2 %; Eosinophils # (auto) 0.23 K/uL (0.00-0.50); Eosinophils % (auto) 4.9 %; Hematocrit (blood only) 30.2 % (42.0-52.0); Hemoglobin 9.9 g/dl (14.0-18.0); Immature Granulocytes # (auto) 0.03 K/uL (0.01-0.20); Immature Granulocytes % (auto) 0.6 %; Lymphocytes # (auto) 0.68 K/uL (1.20-3.40); Lymphocytes % (auto) 14.5 %; Mean Corpuscular Hemoglobin 31.7 pg (25.0-34.0); Mean Corpuscular Hgb Conc 32.8 g/dL (32.0-36.0); Mean Corpuscular Volume 96.8 fL (80.0-100.0); Mean Platelet Volume 12.7 fL (9.4-12.4); Monocytes # (auto) 0.62 K/uL (0.11-0.59); Monocytes % (auto) 13.2 %; Neutrophils # (auto) 3.11 K/uL (1.40-6.50); Neutrophils % (auto) 66.6 %; Platelet Count 59 K/uL (130-400); RDW Coefficient of Variation 14.4 % (11.5-14.5); RDW Standard Deviation 50.1 fL (36.4-46.3); Red Blood Count 3.12 M/uL (4.70-6.10); White Blood Count 4.68 K/ul (4.8-10.8)
[2023-05-20 15:21] LABS: Calcium 8.9 mg/dl (8.6-10.3); Creatinine Clr Calc Pharmacy 20.7 ml/min; Est GFR (African American) 26.4 ml/min; Est GFR (Non-African American) 22.7 ml/min; Potassium 4.8 mmol/L (3.5-5.1)
[2023-05-20] MEDS: ASPIRIN 81 MG ECTAB PO SCH (20:05)
[2023-05-20] MEDS: ROSUVASTATIN CALCIUM 5 MG TAB PO SCH (20:06)
[2023-05-20] MEDS: ACETAMINOPHEN 325 MG TAB PO PRN (20:11)
[2023-05-20] MEDS: LANTUS PER UNIT CHARGE SQ SCH (21:22)
[2023-05-21 09:46] LABS: Basophils # (auto) 0.03 K/uL (0.00-0.20); Basophils % (auto) 0.4 %; Eosinophils # (auto) 0.44 K/uL (0.00-0.50); Eosinophils % (auto) 6.5 %; Hematocrit (blood only) 30.6 % (42.0-52.0); Hemoglobin 10.3 g/dl (14.0-18.0); Immature Granulocytes # (auto) 0.19 K/uL (0.01-0.20); Immature Granulocytes % (auto) 2.8 %; Lymphocytes # (auto) 1.32 K/uL (1.20-3.40); Lymphocytes % (auto) 19.6 %; Mean Corpuscular Hgb Conc 33.7 g/dL (32.0-36.0); Mean Platelet Volume 13.1 fL (9.4-12.4); Monocytes % (auto) 11.9 %; Neutrophils # (auto) 3.97 K/uL (1.40-6.50); Neutrophils % (auto) 58.8 %; Platelet Count 88 K/uL (130-400); RDW Coefficient of Variation 14.3 % (11.5-14.5); RDW Standard Deviation 49.1 fL (36.4-46.3); Red Blood Count 3.22 M/uL (4.70-6.10); White Blood Count 6.75 K/ul (4.8-10.8)
[2023-05-21] MEDS: INSULIN ASPART PER UNIT CHARGE SC SCH ×4 (10:13→22:06)
[2023-05-21 10:14] LABS: BUN Creatinine Ratio 14.1 (10-20); Calcium 9.1 mg/dl (8.6-10.3); Creatinine Clr Calc Pharmacy 19.9 ml/min; Est GFR (African American) 25.2 ml/min; Est GFR (Non-African American) 21.8 ml/min; Potassium 4.7 mmol/L (3.5-5.1)
[2023-05-21] MEDS: PANTOprazole 40 MG TAB PO SCH ×2 (10:14→22:00)
[2023-05-21] MEDS: TAMSULOSIN HCL 0.4 MG CAP PO SCH (10:14)
[2023-05-21] MEDS: allopurinoL 100 MG TAB PO SCH (10:14)
[2023-05-21] MEDS: RANOLAZINE 500 MG ER TAB PO SCH ×2 (10:15→22:01)
[2023-05-21] MEDS: CHOLESTYRAMINE LIGHT 4 GM PKT PO SCH ×2 (11:33→22:03)
--- NOTE | 2023-05-21 11:54 | Hospitalist Progress Note ---
Date of Service May 21, 2023 Assessment & Plan (1) Acute kidney injury superimposed on chronic kidney disease: Plan: LILA on CKD Urinary retention - Confusion ; multifactorial secondary to urinary retention, LILA on CKD, ga stroenteritis in setting of dementia. Diarrhea secondary to enterotoxigenic E. coli 88-year-old male presents to the hospital due to confusion, nausea vomiting and diarrhea. Afebrile, normotensive and saturating well on room air No leukocytosis Hemoglobin slightly lowered from past admission; around 10 g/dl CT head without contrast personally reviewed; no acute intracranial abnormal ity. Chest x-ray personally reviewed; no acute finding. CT abdomen pelvis; no acute intra-abdominal finding. Prostatomegaly present with evidence of chronic bladder obstruction. Garcia placed by urology. Creatinine down trended with placement of Garcia; his baseline seems to be around 2.5. Continue to monitor Garcia output. Bladder scan every 8 hours check for retention On empiric ceftriaxone for now. DC antibiotic if blood cultures are negative after 48 hours. Patient is no longer having diarrhea; supportive care with encouragement of oral hydration. Discussed with urology JACKY Garcia; discharge instruction to be placed regarding follow-up with urology. Pancytopenia - hx of anemia - Anemia and thrombocytopenia possibly secondary to recent use of linezolid - tick borne panel also obtained in the ED - Peripheral blood smear remarkable for normocytic anemia, thrombocytopenia and borderline leukopenia. No suggestion of myelodysplasia or primary hematologic abnormality. - Reticulocyte count is just 0.2% suggesting decreased bone marrow production. Plan to repeat CBC after discharge in 1 week. Chronic conditions hx CAD status post CABG hx PAD status post stent SSS status post PPM hypertension hyperlipidemia statin Rx - for above conditions - cont. home meds BRIAN CPAP noncompliance DM2 insulin requiring Current A1c 6.4% decrease home insulin given poor oral intake, glycemic pharmacy consult Inpt BS goal 110- 40, carb count coverage Full code DVT prophylaxis on hold due to thrombocytopenia PT OT ordered. Recommended rehab. Discussed with at bedside. She wants to discuss further with case management regarding rehab. Time spent evaluating patient, direct bedside care, chart review, placing orders, interpretation of diagnostic studies, discussion with consultants, patient, and family members, as well as other required patient management activities is 60 minutes. Please note the above document was generated using voice recognition software. It may contain grammatical, syntax or spelling errors. Any formal questions or concerns about the content, text or information contained within the body of this dictation should be directly addressed to the provider for clarification Admission and Anticipated Discharge Date Admission Date: May 18, 2023 Subjective Patient seen and examined at bedside. He is sitting on a chair eating breakfast. His is also at bedside. No overnight events. His is concerned about his mobility; concern regarding falls. Review of Systems Review of Systems: All systems reviewed & are unremarkable except as noted in Subjective Physical Exam Physical Exam: Constitutional: Patient awake, oriented to self and place. Not in any distress. Respiratory: Bilateral vesicular breath sound. Cardiovascular: RRR, no murmur, no edema Vessels: no JVD or carotid bruit Chest: normal inspection of chest Abdomen: normal bowel sounds, soft, nontender, no hepatosplenomegaly. Garcia in place and draining clear urine Musculoskeletal: no cyanosis or clubbing, extremities motor strength 5/5 Skin: no rashes, warm and dry normal turgor Neurologic: PERRL, EOMI, accommodation nl, no face palsy, no dysarthria CN's II- XI intact bilaterally and moves all extremities Psychiatric: A+Ox3, euthymic affect Results & Data Results & Data Vital Signs (Past 12 Hours) Vital Signs Temp Pulse Pulse Resp BP BP Pulse Ox 05/21/23 11:20 37.3 C 98 H 18 104/68 94 05/21/23 07:45 36.1 C L 79 16 138/70 97 05/21/23 07:27 73 05/21/23 03:30 36.6 C 74 16 149/68 H 96 O2 Del Method 05/21/23 11:20 Room Air 05/21/23 07:45 Room Air 05/21/23 07:27 05/21/23 03:30 Room Air Laboratory Results Laboratory Results WBC 6.75 K/ul (4.8-10.8) 05/21/23 09:17 RBC 3.22 M/uL (4.70-6.10) L 05/21/23 09:17 Hgb 10.3 g/dl (14.0-18.0) L 05/21/23 09:17 Hct 30.6 % (42.0-52.0) L 05/21/23 09:17 MCV 95.0 fL (80.0-100.0) 05/21/23 09:17 MCH 32.0 pg (25.0-34.0) 05/21/23 09: MCHC 33.7 g/dL (32.0-36.0) 05/21/23 09:17 RDW Std Deviation 49.1 fL (36.4-46.3) H 05/21/23 09:17 RDW Coeff of Dave 14.3 % (11.5-14.5) 05/21/23 09:17 Plt Count 88 K/uL (130-400) L 05/21/23 09:17 MPV 13.1 fL (9.4-12.4) H 05/21/23 09:17 Immature Gran % (Auto) 2.8 % 05/21/23 09:17 Neut % (Auto) 58.8 % 05/21/23 09:17 Lymph % (Auto) 19.6 % 05/21/23 09:17 [place] % (Auto) 11.9 % 05/21/23 09:17 Eos % (Auto) 6.5 % 05/21/23 09:17 Baso % (Auto) 0.4 % 05/21/23 09:17 Reticulocyte % (Auto) 0.2 % (0.5-2.0) L 05/19/23 14:34 Neut # (Auto) 3.97 K/uL (1.40-6.50) 05/21/23 09:17 Lymph # (Auto) 1.32 K/uL (1.20-3.40) 05/21/23 09:17 [place] # (Auto) 0.80 K/uL (0.11-0.59) H 05/21/23 09:17 Eos # (Auto) 0.44 K/uL (0.00-0.50) 05/21/23 09:17 Baso # (Auto) 0.03 K/uL (0.00-0.20) 05/21/23 09: Reticulocyte # 0.01 10^6/uL (0.02-0.10) L 05/19/23 14:34 Immature Gran # (Auto) 0.19 K/uL (0.01-0.20) 05/21/23 09:17 Platelet Estimate Decreased (Normal) L 05/18/23 12:05 Polychromasia 1+ 05/18/23 12:05 Ovalocytes 1+ 05/18/23 12:05 Peripher Smr Path Cons 05/18/23 17:39 Sodium 138 mmol/L (136-145) 05/21/23 09:17 Potassium 4.7 mmol/L (3.5-5.1) 05/21/23 09:17 Chloride 111 mmol/L (98-107) H 05/21/23 09:17 Carbon Dioxide 20 mmol/L (21-32) L 05/21/23 09:17 Anion Gap 7 (3-11) 05/21/23 09:17 BUN 36 mg/dl (6-23) H 05/21/23 09:17 Creatinine 2.56 mg/dl (0.6-1.4) H 05/21/23 09:17 Est Cr Clr Drug Dosing 19.9 ml/min 05/21/23 09:17 Est GFR ( Amer) 25.2 ml/min 05/21/23 09:17 Est GFR (Non-Af Amer) 21.8 ml/min 05/21/23 09:17 BUN/Creatinine Ratio 14.1 (10-20) 05/21/23 09:17 Glucose 180 mg/dl (70-99(Fasting)) H 05/21/23 09:17 POC Glucose 118 mg/dl (70-99) H 05/21/23 07:52 Calcium 9.1 mg/dl (8.6-10.3) 05/21/23 09:17 Phosphorus 3.0 mg/dl (2.5-4.9) 05/19/23 04:44 Magnesium 2.1 mg/dl (1.7-2.4) 05/19/23 04:44 Total Bilirubin 0.6 mg/dl (0.2-1.0) 05/19/23 04:44 AST 23 U/L (13-39) 05/19/23 04:44 ALT 18 U/L (7-52) 05/19/23 04:44 Alkaline Phosphatase 89 U/L (34-104) 05/19/23 04:44 Ammonia 22.0 umol/L (18-72) 05/18/23 12:05 Lactate Dehydrogenase 202 U/L (86-244) 05/19/23 04:44 Troponin I High Sens 72.4 pg/ml (0-20) H* 05/18/23 13:56 Total Protein 4.9 gm/dl (6.0-8.3) L D 05/19/23 04:44 Albumin 3.3 gm/dl (3.4-5.0) L 05/19/23 04:44 Globulin 1.6 gm/dl (2.5-4.0) L 05/19/23 04:44 Albumin/Globulin Ratio 2.1 (0.9-2) H 05/19/23 04:44 Lipase 15 U/L (11-82) 05/18/23 12:05 TSH 3.905 uIu/ml (0.300-4.500) 05/18/23 12:05 Urine Color Yellow 05/18/23 17:22 Urine Appearance Clear (Clear) 05/18/23 17:22 Urine pH 5.0 (4.5-7.5) 05/18/23 17:22 Ur Specific [place] 1.013 (1.000-1.030) 05/18/23 17:22 Urine Protein Trace (Negative) H 05/18/23 17:22 Urine Glucose (UA) Negative (Negative) 05/18/23 17:22 Urine Ketones Negative (Negative) 05/18/23 17:22 Urine Blood 3+ (Negative) H 05/18/23 17:22 Urine Nitrite Negative (Negative) 05/18/23 17:22 Urine Bilirubin Negative (Negative) 05/18/23 17:22 Urine Urobilinogen Negative (Negative) 05/18/23 17:22 Ur Leukocyte Esterase Negative (Negative) 05/18/23 17:22 Urine WBC (Auto) 1-5 /hpf (0-5) 05/18/23 17:22 Urine RBC (Auto) >30 /hpf (0-4) H 05/18/23 17:22 U Hyaline Cast (Auto) 1-5 /lpf (0-5) 05/18/23 17:22 U Epithel Cells (Auto) 0-5 /lpf (0-5) 05/18/23 17:22 Urine Bacteria (Auto) Negative (Negative) 05/18/23 17:22 Stl C. cayetanensis PCR Not Detected (NotDetected) 05/19/23 Unknown Stool Rotavirus A PCR Not Detected (NotDetected) 05/19/23 Unknown Stl Adenov F 40/41 PCR Not Detected (NotDetected) 05/19/23 Unknown Stool Astrovirus (PCR) Not Detected (NotDetected) 05/19/23 Unknown Stool Campylobacter PCR Not Detected (NotDetected) 05/19/23 Unknown Stl C. diff Tox B Gene Negative Cdiff Gene (Neg) 05/19/23 Unknown Stool Cryptosporidium PCR Not Detected (NotDetected) 05/19/23 Unknown Stl E.coli Shiga Tox PCR Not Detected (NotDetected) 05/19/23 Unknown Stl Enterotoxigenic E PCR DETECTED (NotDetected) A* 05/19/23 Unknown Stool EPEC (PCR) Not Detected (NotDetected) 05/19/23 Unknown Stool EAEC (PCR) Not Detected (NotDetected) 05/19/23 Unknown Stl E. histolytica PCR Not Detected (NotDetected) 05/19/23 Unknown Stool Giardia Lamblia PCR Not Detected (NotDetected) 05/19/23 Unknown Stool Salmonella PCR Not Detected (NotDetected) 05/19/23 Unknown Stool Sapovirus (PCR) Not Detected (NotDetected) 05/19/23 Unknown Stl P. shigelloides PCR Not Detected (NotDetected) 05/19/23 Unknown Stl Shigella/EIEC PCR Not Detected (NotDetected) 05/19/[address].enterocolitica PCR Not Detected (NotDetected) 05/19/23 Unknown Stool Vibrio (PCR) Not Detected (NotDetected) 05/19/23 Unknown Stl Vibrio cholerae PCR Not Detected (NotDetected) 05/19/23 Unknown Stl Norovirus GI/GII PCR Not Detected (NotDetected) 05/19/23 Unknown Anaplasma Smear See Comment 05/18/23 17:03 Babesia Smear See Comment 05/18/23 17:03 Lyme Disease IgG Ab Negative (Negative) 05/18/23 17:39 Lyme Disease IgM Ab Negative (Negative) 05/18/23 17:39 SARS-CoV-2, RNA, NAAT NEGATIVE (NEGATIVE) 05/18/23 16:06 Impressions Chest X-Ray 05/18/23 11:50 XR chest 1V portable HISTORY: Chest pain, nonspecific COMPARISON: Chest CT 04/29/2023. FINDINGS: There is a left-sided dual-chamber pacemaker. No pneumothorax. No pleural effusions. A few bibasilar linear densities favor subsegmental atelectasis or scarring. This is similar to the prior study. No new focal lung consolidations to suggest a pneumonia. No evidence for pulmonary edema. The heart remains mildly enlarged. There are postoperative changes and a small right azygos lobe again noted. IMPRESSION: No significant change compared to the prior study. No acute process. ACT 112: Negative or not required by law. Electronically signed by: Benedicto Salas M.D. 05/18/2023 2:[address] 05/18/23 12:21 CT SCAN OF THE BRAIN WITHOUT IV CONTRAST CLINICAL HISTORY: Change in mental status. COMPARISON STUDY: CT of the brain dated 04/29/2023. TECHNIQUE: Unenhanced axial CT scan of the brain is performed from the vertex to the skull base. A dose lowering technique was utilized adhering to the principles of ALARA. FINDINGS: Brain parenchyma: There is age-related involutional change noting moderate subcortical and periventricular microangiopathic disease. There is no hemorrhage, mass effect, or evidence of acute territorial ischemia by CT criteria. Braun-white matter differentiation is preserved. No extra-axial fluid collection is seen. Ventricles, sulci, cisterns: Prominent secondary to involutional change. Intracranial vasculature: There is atherosclerotic calcification of the cavern ous carotid and vertebral artery. Calvarium: Unremarkable. Sinuses and mastoids: There is limited opacification of the left maxillary sinus. Thickening and sclerosis of the sinus wall indicates chronicity. The remaining visualized paranasal sinuses are clear. The mastoid air cells are well pneumatized. Orbits: The bony orbits are grossly intact. There are bilateral ocular lens implants. IMPRESSION: There is no hemorrhage, mass effect, or evidence of acute territorial ischemia by CT criteria. ACT 112: Negative or not required by law. Electronically signed by: Eddie Dillon M.D. 05/18/2023 1:28 PM Abdomen/Pelvis CT 05/18/23 13:11 CT SCAN OF THE ABDOMEN AND PELVIS WITHOUT IV CONTRAST CLINICAL HISTORY: Acute on chronic renal insufficiency. COMPARISON STUDY: Abdominal CT dated 04/30/2023. TECHNIQUE: CT scan of the abdomen and pelvis is performed from the lung bases to the proximal femora. Images are reviewed in the axial, sagittal, and coronal planes. IV contrast was not administered for this examination. A dose lowering technique was utilized adhering to the principles of ALARA. CT DOSE: 1991.92 mGy.cm FINDINGS: Lung bases: The patient is status post midline sternotomy. The heart is enlarged and without pericardial effusion. Pacemaker leads are in place. The coronary arteries are densely calcified. There is diminished attenuation of the cardiac blood pool as compared to the myocardium suggesting anemia. The lung bases are clear noting bibasilar scarring/atelectasis. There is a small hiatal hernia. Liver: The unenhanced liver is normal in size, contour, and attenuation. There is no intrahepatic biliary ductal dilatation. Gallbladder: There are layering calcified gallstones with no CT evidence of acute cholecystitis. Spleen: Normal in size and attenuation. 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 Pancreas: The unenhanced pancreas is moderately atrophic. Scattered parenchymal calcifications suggest chronic pancreatitis. Adrenal glands: Unremarkable. Kidneys: The unenhanced kidneys demonstrate cortical atrophy and are without hydronephrosis. There is a punctate nonobstructing right renal calculus. No left renal calculi are identified and no ureteral stone is seen. A 2 cm cyst is noted in the right upper pole. Abdominal vasculature: There is advanced atherosclerotic calcification and mild ectasia of the abdominal aorta. Bowel: There are scattered colonic diverticula without CT evidence of acute diverticulitis. No bowel obstruction is seen. The appendix is well-visualized and normal. Peritoneum: There is no intraperitoneal free air or abdominal ascites. There is a fat-containing umbilical hernia. Lymphadenopathy: None. Pelvic viscera: Evaluation of the pelvis is degraded by streak artifact from a left hip arthroplasty. The prostate gland is enlarged and heterogeneous. The bladder is distended, and the wall is thickened/trabeculated indicating chronic outlet obstruction. There are bilateral fat-containing groin hernias. Skeletal structures: The skeletal structures are osteopenic. There is advanced lumbosacral spondylosis with laminectomy change throughout the lumbar spine. No lytic or blastic lesions are seen. A left hip arthroplasty is in place. There are subacute left anterior 6th and 7th rib fractures. IMPRESSION: 1. No acute infectious or inflammatory findings are identified in the abdomen or pelvis. 2. The kidneys demonstrate cortical atrophy and are without hydronephrosis. 3. Punctate nonobstructing right renal calculus. 4. Subacute left anterior rib fractures as above. 5. Cardiomegaly and cardiac pacemaker. 6. Prostatomegaly with evidence of chronic bladder outlet obstruction. 7. Cholelithiasis. 8. Additional findings as above. ACT 112: Negative or not required by law. Electronically signed by: Eddie Dillon M.D. 05/18/2023 2:18 PM
--- NOTE | 2023-05-21 14:05 | Pharmacy Report ---
Pharmacy Glycemic Short Note 2 - Date of Service May 21, 2023 - Glycemic Short BSG Results (Last 24 hours): 05/20/23 05/20/23 05/20/23 14:18 17:04 21:08 Glucose 239 H POC Glucose 154 H 91 05/21/23 05/21/23 05/21/23 07:52 09:17 11:52 Glucose 180 H POC Glucose 118 H 216 H OUTPATIENT ANTIDIABETIC REGIMEN: * Lantus 34 units SC HS * Novolog 14-16 units SC w/ breakfast and lunch, 18 units SC w/ dinner HbA1c: 6.4% (04/29/23) ASSESSMENT: 05/21/23 * BSGs yesterday were 650-642-880-91 mg/dL. Patient received 10 units of bolus. * BSGs today are 118-216 mg/dL. * Tighten CR slightly since patient trends upwards throughout the day. * Continue with Lantus scale tonight. Lowered doses due to concern for hypoglycemia. 05/20: * Patient received total 26 units of insulin yesterday- 15 units basal and 11 units bolus. * BSG trended down from 230 mg/dl pre-lunch yesterday to 67 mg/dl pre-dinner. * Fasting BSG today was 117 mg/dl. * Basal dose held this AM and Novolog parameters loosened. Will continue with basal dose scale at HS based on BSG. 05/19: * DL is a 88 year old male w/ LILA on CKD, recently discharged from hospital on 05/04/23 * SCr on admission of 2.7 mg/dL -> down to 2.34 mg/dL today * Urology consulted * BSGs in 90s on admission - basal insulin withheld * BSG trended up today at lunch to 230 mg/dL. Will initiate Lantus now. * Recent admission data suggests ~50 units of insulin/day is reasonable PLAN FOR INPATIENT GLYCEMIC CONTROL: * Basal insulin * Lantus 0-10 units SQ HS based on BSG * Bolus insulin * NovoLog per scale ACHS or Q6hrs while NPO * Goal Range: Low 110 mg/dL - High 140 mg/dL * Correction Factor: 25 mg/dL/unit * Nutritional / Prandial insulin per carb ratio of 1 unit per 8 grams CHO consumed
[2023-05-21] MEDS: ASPIRIN 81 MG ECTAB PO SCH (22:01)
[2023-05-21] MEDS: ROSUVASTATIN CALCIUM 5 MG TAB PO SCH (22:01)
[2023-05-21] MEDS: LANTUS PER UNIT CHARGE SQ SCH (22:06)
[2023-05-22 08:08] LABS: Calcium 9.1 mg/dl (8.6-10.3); Creatinine Clr Calc Pharmacy 19.4 ml/min; Est GFR (African American) 24.5 ml/min; Est GFR (Non-African American) 21.2 ml/min; Potassium 4.8 mmol/L (3.5-5.1)
[2023-05-22 08:09] LABS: Hematocrit (blood only) 30.4 % (42.0-52.0); Hemoglobin 10.3 g/dl (14.0-18.0); Mean Corpuscular Hemoglobin 32.2 pg (25.0-34.0); Mean Corpuscular Hgb Conc 33.9 g/dL (32.0-36.0); Mean Platelet Volume 12.2 fL (9.4-12.4); Platelet Count 83 K/uL (130-400); RDW Coefficient of Variation 14.3 % (11.5-14.5); RDW Standard Deviation 48.8 fL (36.4-46.3); White Blood Count 7.68 K/ul (4.8-10.8)
[2023-05-22 08:16] LABS: Basophils # (auto) 0.06 K/uL (0.00-0.20); Basophils % (auto) 0.8 %; Eosinophils # (auto) 0.35 K/uL (0.00-0.50); Eosinophils % (auto) 4.6 %; Immature Granulocytes # (auto) 0.51 K/uL (0.01-0.20); Immature Granulocytes % (auto) 6.6 %; Lymphocytes # (auto) 1.21 K/uL (1.20-3.40); Lymphocytes % (auto) 15.8 %; Monocytes # (auto) 0.84 K/uL (0.11-0.59); Monocytes % (auto) 10.9 %; Neutrophils # (auto) 4.71 K/uL (1.40-6.50); Neutrophils % (auto) 61.3 %
--- NOTE | 2023-05-22 08:50 | Nephrology Consultation ---
Date of Consultation May 22, 2023 Assessment & Plan (1) Acute kidney injury superimposed on chronic kidney disease: LILA on CKD 3 w/ 2.5 gm protienuria. That said, baseline creatinine poorly defined > was 1.7-2.2 in 2020. From this spring outside of [facility] and out of state (and quite possibly just after hospital stay/procedures), creatinine in November 2022 was 3.2 and 1.9. D/c creatinine 05/04 was 2.1. at last hospital stay he had full OP ARB dose (50 mg bid) on 05/02 which was then stopped and he resumed OP lasix 80 mg bid ) on 05/03. creatinine uptrended prior to d/c from 1.7->2.1 by hospital d/c. he was d/c on lasix and losartan held. Creatinine was 2.3 on 05/06 at hospital d/c visit w/ PCP. SBP has been in 140s this admission; no prolonged periods of bp extremes. He is about net even on the admission in terms of I/o and remains on RA. He had 1L nS in ER and 2 doses of ceftriaxone on 05/19 and 05/20; he's had no diuretics this admission. ->ATN versus prerenal. AIN also possible given abtx exposure. EHEC not a/w direct renal toxicity in the way that other E coli variants can be; no evidence of infection. >>gentle trial of D5W w/ 75 mEq/L sodium bicarbonate at 80 mL /hr x 1.5 L and assess renal function ->>repeated CXR prior to above as he's been several days w/o lasix and has HFpEF hx >> I personally reviewed CXR and no vol OL/ agree w/ radiology findings (2) Urinary retention: w/ stewart; per urology > voiding trial TBD (3) Frequent falls: 2 hospital stays in past 10 mos w/ broken bones from fall, one (last June) needing surgery. -careful saftely planning at d/c >?rehab History of Present Illness Reason for Consultation: LILA on CKD Requesting Physician: Dr Vega Attending Physician: Darren Vega MD History of Present Illness 88 y/o M whom I'm asked to see for LILA on CKD was admitted 05/18 w/ same, attributed in part to obstructive uropathy (voided 700 mL w/ stewart placement) and prerenal (n/v/d). PMH CAD status post CABG, SSS status post PPM, HFpEF, PAD s/p stent, HTN, DM2, BRIAN not on CPAP, CAMARILLO, CKD stage III last known baseline creatinine 1.7-2.2 in 2020, dementia, prostatic hypertrophy s/p surgery, asymptomatic bacteriuria, HL. In June 2022 the pt fell w/ L hip fracture/repair c/b urinary retention requiring chronic stewart for about 6 mos until spring 2022 when he underwent bladder procedure to improve urine flow. Asx bacteriuria dx'd thereafter. From this spring outside of [facility] and out of state, creatinine in November 2022 was 3.2 and 1.9 He resides in [place] now and is in the area for a few months to close up a former residence. He has followed in [facility] CKD clinic in past, last seen 2018. hx of 2.5 gm proteinuria and baseline as above; CKD attrib to HTN, NSAIDS, DM. He is not getting nephrology care in [place]. He also has a new PCP in [place] in the past 6 mos. He was admitted here 05/01-05/04 w/ a fall w/ head/chest contusions in the setting of progressive ambulatory dysfunction, admitting creatinine for that stay 2.9; d/c creat 2.1. he was d/c back on his OP lasix 80 mg bid, linezolid and cefuroxime, but losartan was held. Since hospital d/c, pt did well initially and est w/ [facility] PCP. sCreat was 2.3 on 05/06 at that visit. it was noted he had resumed atenolol > not on his d/c med list and this was stopped. SBP 90/ 50. 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 and son are at bedside; pro steffanie HX. Noted to have urinary retention on arrival and stewart placed. urinalysis and blood cxs neg for infection or NGTD. The stewart did apparently become occluded and needed to be exchanged on 05/18. Presenting creatinine 2.7; came down to 2.3 next day and since then plateau'd mid 2's; 2.6 today. Admission w/u notable for enterotoxigenic E coli contributing to UTI and to diarrhea, pancytopenia in part d/t linezolid. not currently on IVF; he completed course of ceftriaxone yesterday. Pt remains confused. Tells me he vomited overnight however tells me there was no reported this to her but only bowel movement. No shortness of breath, no edema, denies musculoskeletal or abdominal pain. Allergies Allergy/AdvReac Type Severity Reaction Status Date / Time morphine Allergy Unknown HIVES Verified 05/18/23 16:00 pollen extracts Allergy Unknown RUNNY EYES Verified 05/18/23 16:00 shellfish derived Allergy Unknown NECK Verified 05/18/23 16:00 SWELLS-30 YRS AGO WITH CRABS atorvastatin AdvReac Mild SHOULDER Verified 04/29/23 23:13 PAIN Home Medications Medication Instructions Recorded Confirmed Type allopurinol 100 mg tablet 100 mg PO QAM 08/19/18 05/18/23 History insulin aspart U-100 100 unit/mL 14 - 16 unit subcut .BREAKFAST & 08/19/18 05/18/23 History (3 mL) subcutaneous pen (Novolog LUNCH FlexPen U-100 Insulin aspart) insulin glargine 100 unit/mL 34 unit subcut HS 08/19/18 05/18/23 History subcutaneous solution omeprazole 20 mg tablet,delayed 20 mg PO BID 08/19/18 05/18/23 History release rosuvastatin 5 mg tablet 5 mg PO QPM 08/19/18 05/18/23 History aspirin 81 mg tablet,delayed 81 mg PO QPM 04/29/23 05/18/23 History release calcium carbonate 600 mg-vitamin 1 tab PO BID 04/29/23 05/18/23 History D3 10 mcg (400 unit) tablet (Calcium 600 + D(3)) cholestyramine (with sugar) 4 gram 4 g PO AMPM 04/29/23 05/18/23 History powder for susp in a packet (Questran) furosemide 40 mg tablet 40 mg PO AMPM 04/29/23 05/18/23 History ranolazine 500 mg tablet,extended 500 mg PO BID 04/29/23 05/18/23 History release,12 hr tamsulosin 0.4 mg capsule 0.4 mg PO DAILY 04/29/23 05/18/23 History tramadol 50 mg tablet 25 mg PO Q4H PRN pain (scale score 05/04/23 05/18/23 Rx 7-10) #7 tabs insulin aspart U-100 100 unit/mL 18 unit subcut .SUPPER 05/18/23 05/18/23 History (3 mL) subcutaneous pen (Novolog FlexPen U-100 Insulin aspart) Patient History Medical History (Updated 05/22/23 @ 09:10 by Lily Tobias MD, PhD) CAD (coronary artery disease) Chronic kidney disease (CKD), stage III (moderate) Dementia Diabetes mellitus, type 2 Frequent falls w/ L hip fractuer 06/2022 w/ rib fractures, scalp laceration 04/2023 Gout Hearing deficit Hyperlipidemia Hypertension CAMARILLO (nonalcoholic steatohepatitis) On anticoagulant therapy on plavix Osteoarthritis Pacemaker 05/2018 @ [facility] PAD (peripheral artery disease) Sleep apnea CPAP--doesn't used as ordered Surgical History History of bilateral cataract extraction History of cardiac cath x2--1997/1999--no stents History of colonoscopy History of coronary angioplasty 1985 History of esophagogastroduodenoscopy (EGD) History of lumbar fusion hardware in place History of tonsillectomy History of tooth extraction S/P CABG x 3 1999 @ [facility] Pender S/P peripheral artery angioplasty with stent placement x2--2014/2015 (total of 2 stents) Family History Mother Family history of diabetes mellitus Social History Smoking Status: Never smoker Second Hand Exposure: No; Do You Dip or Chew Tobacco: No; Hx Alcohol Use: No Hx Substance Use: No Preferred Language: Niuean Communication Ability: Effective Juice Weigher Required: No Beliefs That Will Affect Care: None Current Living Situation: Spouse Current Living Situation Comment: home with Feels Safe at Home: Yes Assistive Devices: Walker Review of Systems Review of Systems: Unobtainable due to cognitive status (Limited by cognitive status) Physical Exam Constitutional: well developed (Sitting up in chair on room air) and well nourished; no acute distress Eyes: EOM intact bilaterally ENMT: Ears: no external ear abnormality Nose: no external nose abnormality Mouth: + dry oral mucous membranes Neck: no nuchal rigidity Respiratory: normal respiratory effort Auscultation: + diminished lung sounds Cardiovascular: Rate/Rhythm: regular rate and regular rhythm Extremities: + edema (Trace right lower extremity, none left lower extremity) Gastrointestinal (Abdomen): Inspection/Auscultation: normal bowel sounds Percussion/Palpation: abdomen soft; abdomen nontender Musculoskeletal: Extremities: strength 5/5 throughout Skin: no rashes, warm and dry Neurologic: mota, fluent speech, no tremor Psychiatric: Orientation: alert and oriented to person; + not oriented to place and + not oriented to time Speech: normal rate/rhythm/volume of speech Results & Data Vital Signs (Past 12 Hours) Vital Signs Temp Pulse Pulse Resp BP BP Pulse Ox 05/22/23 07:00 86 05/22/23 06:11 80 05/22/23 07:36 37.0 C 89 17 116/70 98 05/22/23 03:42 37 C 82 18 148/62 H 97 05/21/23 23:46 76 05/21/23 22:59 37.3 C 77 16 117/62 95 O2 Del Method 05/22/23 07:00 05/22/23 06:11 05/22/23 07:36 Room Air 05/22/23 03:42 Room Air 05/21/23 23:46 05/21/23 22:59 Room Air Laboratory Results 05/22/23 07:22 05/22/23 07:22 admission UA reviewed Diagnostic Findings CT a/p non con Lung bases: The patient is status post midline sternotomy. The heart is enlarged and without pericardial effusion. Pacemaker leads are in place. The coronary arteries are densely calcified. There is diminished attenuation of the cardiac blood pool as compared to the myocardium suggesting anemia. The lung bases are clear noting bibasilar scarring/atelectasis. There is a small hiatal hernia. Liver: The unenhanced liver is normal in size, contour, and attenuation. There is no intrahepatic biliary ductal dilatation. Gallbladder: There are layering calcified gallstones with no CT evidence of acut e cholecystitis. Spleen: Normal in size and attenuation. 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 Pancreas: The unenhanced pancreas is moderately atrophic. Scattered parenchymal calcifications suggest chronic pancreatitis. Adrenal glands: Unremarkable. Kidneys: The unenhanced kidneys demonstrate cortical atrophy and are without hydronephrosis. There is a punctate nonobstructing right renal calculus. No left renal calculi are identified and no ureteral stone is seen. A 2 cm cyst is noted in the right upper pole. Abdominal vasculature: There is advanced atherosclerotic calcification and mild ectasia of the abdominal aorta. Bowel: There are scattered colonic diverticula without CT evidence of acute diverticulitis. No bowel obstruction is seen. The appendix is well-visualized and normal. Peritoneum: There is no intraperitoneal free air or abdominal ascites. There is a fat-containing umbilical hernia. Lymphadenopathy: None. Pelvic viscera: Evaluation of the pelvis is degraded by streak artifact from a left hip arthroplasty. The prostate gland is enlarged and heterogeneous. The bladder is distended, and the wall is thickened/trabeculated indicating chronic outlet obstruction. There are bilateral fat-containing groin hernias. Skeletal structures: The skeletal structures are osteopenic. There is advanced lumbosacral spondylosis with laminectomy change throughout the lumbar spine. No lytic or blastic lesions are seen. A left hip arthroplasty is in place. There are subacute left anterior 6th and 7th rib fractures. IMPRESSION: 1. No acute infectious or inflammatory findings are identified in the abdomen or pelvis. 2. The kidneys demonstrate cortical atrophy and are without hydronephrosis. 3. Punctate nonobstructing right renal calculus. 4. Subacute left anterior rib fractures as above. 5. Cardiomegaly and cardiac pacemaker. 6. Prostatomegaly with evidence of chronic bladder outlet obstruction. 7. Cholelithiasis. cxr and head CT w/o acute process CXR from today w/o pl effusion or vasc congestion
[2023-05-22] MEDS ORDERED: SODIUM CHLORIDE 0.9% 1,000 ML IV SCH (09:45)
[2023-05-22] MEDS: allopurinoL 100 MG TAB PO SCH (10:18)
[2023-05-22] MEDS: RANOLAZINE 500 MG ER TAB PO SCH ×2 (10:18→21:36)
[2023-05-22] MEDS: PANTOprazole 40 MG TAB PO SCH ×2 (10:18→21:36)
[2023-05-22] MEDS: TAMSULOSIN HCL 0.4 MG CAP PO SCH (10:19)
[2023-05-22] MEDS: CHOLESTYRAMINE LIGHT 4 GM PKT PO SCH ×2 (10:20→21:37)
[2023-05-22] MEDS: LANTUS PER UNIT CHARGE SQ SCH ×2 (10:27→20:25)
[2023-05-22] MEDS: INSULIN ASPART PER UNIT CHARGE SC SCH ×4 (10:28→20:30)
--- NOTE | 2023-05-22 10:33 | XRay Report ---
XR chest 1V portable HISTORY: HFpEF hx off lasix x days > check pulm status COMPARISON: Chest 05/18/2023. FINDINGS: There are low lung volumes. No pneumothorax. No pleural effusions. Bibasilar linear densiti es persist and favor scarring or subsegmental atelectasis. There are poststernotomy changes and left- sided dual-chamber pacemaker. The heart remains mildly enlarged. No new focal lung consolidations to suggest a pneumonia. No evidence for pulmonary edema. There is a small right azygos lobe again noted. IMPRESSION: No significant change compared to the prior study. No acute process. ACT 112: Negative or not required by law. Electronically signed by: Benedicto Salas M.D. 05/22/2023 10:32 AM
[2023-05-22 13:02] LABS: Babesia microti DNA Not Detected (Not Detected)
--- NOTE | 2023-05-22 13:16 | Pharmacy Report ---
Pharmacy Glycemic Short Note 2 - Date of Service May 22, 2023 - Glycemic Short BSG Results (Last 24 hours): 05/21/23 05/21/23 05/21/23 17:05 17:46 21:41 Glucose POC Glucose 87 99 91 05/22/23 05/22/23 05/22/23 07:22 08:12 12:58 Glucose 155 H POC Glucose 164 H 221 H OUTPATIENT ANTIDIABETIC REGIMEN: * Lantus 34 units SC HS * Novolog 14-16 units SC w/ breakfast and lunch, 18 units SC w/ dinner HbA1c: 6.4% (04/29/23) ASSESSMENT: 05/22/23 * BSGs continue trend of peak at lunchtime and reasonably well-controlled for rest of day * Fasting BSG this morning is elevated at 164 mg/dL, will restart basal insulin * Sodium bicarb in D5W initiated by nephrology to infuse @80 mL/hr 05/21/23 * BSGs yesterday were 279-935-291-91 mg/dL. Patient received 10 units of bolus. * BSGs today are 118-216 mg/dL. * Tighten CR slightly since patient trends upwards throughout the day. * Continue with Lantus scale tonight. Lowered doses due to concern for hypoglycemia. 05/20: * Patient received total 26 units of insulin yesterday- 15 units basal and 11 units bolus. * BSG trended down from 230 mg/dl pre-lunch yesterday to 67 mg/dl pre-dinner. * Fasting BSG today was 117 mg/dl. * Basal dose held this AM and Novolog parameters loosened. Will continue with basal dose scale at HS based on BSG. 05/19: * DL is a 88 year old male w/ LILA on CKD, recently discharged from hospital on 05/04/23 * SCr on admission of 2.7 mg/dL -> down to 2.34 mg/dL today * Urology consulted * BSGs in 90s on admission - basal insulin withheld * BSG trended up today at lunch to 230 mg/dL. Will initiate Lantus now. * Recent admission data suggests ~50 units of insulin/day is reasonable PLAN FOR INPATIENT GLYCEMIC CONTROL: * Basal insulin * Lantus 10 units SC daily * Lantus 0-10 units SQ HS based on BSG (see EHR for details) * Bolus insulin * NovoLog per scale ACHS or Q6hrs while NPO * Goal Range: Low 110 mg/dL - High 140 mg/dL * Correction Factor: 25 mg/dL/unit * Nutritional / Prandial insulin per carb ratio of 1 unit per 8 grams CHO consumed
[2023-05-22] MEDS: SODIUM BICARBONATE 8.4% 75 MEQ in DEXTROSE 5% 1,000 ML IV SCH (14:29)
--- NOTE | 2023-05-22 17:38 | Hospitalist Progress Note ---
Date of Service May 22, 2023 Assessment & Plan (1) Acute kidney injury superimposed on chronic kidney disease: Plan: per previous attending notes with addendum: LILA on CKD possible Obstructive Uropathy, Urinary retention possible PreRenal vs ATN in the setting of Diarrhea, Poor oral Intake Diarrhea secondary to enterotoxigenic E. coli Confusion ; multifactorial secondary to urinary retention, LILA on CKD, gastroenteritis in setting of dementia. 88-year-old male presents to the hospital due to confusion, nausea vomiting and diarrhea. Afebrile, normotensive and saturating well on room air No leukocytosis Hemoglobin slightly lowered from past admission; around 10 g/dl CT head without contrast personally reviewed; no acute intracranial abnormality. Chest x-ray personally reviewed; no acute finding. CT abdomen pelvis; no acute intra-abdominal finding. Prostatomegaly present with evidence of chronic bladder obstruction. Stewart placed by urology. Creatinine down trended with placement of Stewart; his baseline seems to be around 2.5. Continue to monitor Stewart output. Bladder scan every 8 hours check for retention On empiric ceftriaxone for now. DC antibiotic if blood cultures are negative after 48 hours. Patient is no longer having diarrhea; supportive care with encouragement of oral hydration. Discussed with urology JACKY Garcia; discharge instruction to be placed regarding follow-up with urology. 05/22 crea still trending up 2.6 today Nephro consulted BiCarb drip started continue Stewart Cath still having loose stools Cipro 500mg po daily started (renally dosed) check C diff mental status back to baseline Pancytopenia - hx of anemia - Anemia and thrombocytopenia possibly secondary to recent use of linezolid - tick borne panel also obtained in the ED - Peripheral blood smear remarkable for normocytic anemia, thrombocytopenia and borderline leukopenia. No suggestion of myelodysplasia or primary hematologic abnormality. - Reticulocyte count is just 0.2% suggesting decreased bone marrow production. Plan to repeat CBC after discharge in 1 week. 05/22 CBC stable Chronic conditions hx CAD status post CABG hx PAD status post stent SSS status post PPM hypertension hyperlipidemia statin Rx - for above conditions - cont. home meds BRIAN CPAP noncompliance DM2 insulin requiring Current A1c 6.4% decrease home insulin given poor oral intake, glycemic pharmacy consult Inpt BS goal 110- 40, carb count coverage Full code DVT prophylaxis on hold due to thrombocytopenia PT OT ordered. Recommended rehab. Discussed with at bedside. She wants to discuss further with case management regarding rehab. plan of care discussed with patient and his family at bedside in detail and at length all questions answered they are understanding, agreeable, comfortable with the plan of care Admission and Anticipated Discharge Date Admission Date: May 18, 2023 Subjective ff up for LILA, etc seen resting in chair, comfortable states he still feels weak denies problems with stewart catheter still having loose stools 1-2 /day, no blood has some abdominal discomfort no nausea, fever/chills no other symptoms Review of Systems Review of Systems: all noted and negative except for above Physical Exam Physical Exam: General- oriented x 3, not in distress, speaks in sentences with no effort or accessory muscle use Eyes- anicteric Neck- no JVD Lungs- clear breath sounds bilaterally, no rales/wheezes Heart- normal rate, regular rhythm; no murmurs Abdomen- normal bowel sounds, nondistended, soft, nontender Extremities- no pretibial edema, no calf tenderness Neuro- alert, oriented x 3; no gross focal neurologic deficits Skin- warm & dry Results & Data Results & Data Vital Signs (Past 12 Hours) Vital Signs Temp Pulse Pulse Resp BP BP Pulse Ox 05/22/23 15:34 36.5 C 79 17 128/66 98 05/22/23 15:12 76 05/22/23 11:24 36.9 C 89 18 129/75 97 05/22/23 07:00 86 05/22/23 06:11 80 05/22/23 07:36 37.0 C 89 17 116/70 98 O2 Del Method 05/22/23 15:34 Room Air 05/22/23 15:12 05/22/23 11:24 Room Air 05/22/23 07:00 05/22/23 06:11 05/22/23 07:36 Room Air all noted and reviewed including below
[2023-05-22] MEDS: CIPROFLOXACIN 500 MG TAB PO SCH (18:39)
[2023-05-22] MEDS: ASPIRIN 81 MG ECTAB PO SCH (21:36)
[2023-05-23] MEDS: SODIUM BICARBONATE 8.4% 75 MEQ in DEXTROSE 5% 1,000 ML IV SCH ×2 (02:25→16:00)
[2023-05-23] MEDS: RANOLAZINE 500 MG ER TAB PO SCH ×2 (03:19→20:03)
[2023-05-23] MEDS: INSULIN ASPART PER UNIT CHARGE SC SCH ×4 (09:35→20:16)
[2023-05-23] MEDS: CHOLESTYRAMINE LIGHT 4 GM PKT PO SCH ×2 (09:39→21:09)
[2023-05-23] MEDS: TAMSULOSIN HCL 0.4 MG CAP PO SCH (09:39)
[2023-05-23] MEDS: allopurinoL 100 MG TAB PO SCH (09:39)
[2023-05-23] MEDS: PANTOprazole 40 MG TAB PO SCH ×2 (09:39→20:03)
[2023-05-23] MEDS: LANTUS PER UNIT CHARGE SQ SCH ×2 (09:43→20:17)
[2023-05-23 09:47] LABS: BUN Creatinine Ratio 12.8 (10-20); Calcium 8.9 mg/dl (8.6-10.3); Creatinine Clr Calc Pharmacy 21.3 ml/min; Est GFR (African American) 26.9 ml/min; Est GFR (Non-African American) 23.2 ml/min; Potassium 4.7 mmol/L (3.5-5.1)
--- NOTE | 2023-05-23 10:50 | Nephrology Progress Note ---
Date of Service May 23, 2023 Assessment & Plan (1) Acute kidney injury superimposed on chronic kidney disease: Plan: plateau'd nonoliguric LILA on CKD 3 w/ 2.5 gm proteinuria. That said, baseline creatinine poorly defined > was 1.7-2.2 in 2020. [place] [facility] [place] (and quite possibly just after hospital stay/procedures), creatinine in November 2022 was 3.2 and 1.9. D/c creatinine 05/04 was 2.1. at last hospital stay he had full OP ARB dose (50 mg bid) on 05/02 which was then stopped and he resumed OP lasix 80 mg bid ) on 05/03. creatinine uptrended prior to d/c from 1.7->2.1 by hospital d/c. he was d/c on lasix and losartan held. Creatinine was 2.3 on 05/06 at hospital d/c visit w/ PCP. SBP has been in 140s this admission; no prolonged periods of bp extremes. He is about net even on the admission in terms of I/o and remains on RA. He had 1L NS in ER and 2 doses of ceftriaxone on 05/19 and 05/20; he's had no diuretics this admission. ->ATN versus prerenal, favor ATN. AIN also possible given abtx exposure. EHEC not a/w direct renal toxicity in the way that other E coli variants can be; no evidence of infection. >>gentle trial of D5W w/ 75 mEq/L sodium bicarbonate at 80 mL /hr x 1.5 L and assess renal function >> so far no improvement; will stop IVF. >>will need dispo re voiding trial from urology; pt w/ fairly complex urology hx past year ( see my c/s) WILL SIGN OFF NEPH D/C Recs -d/c on lasix 40 mg q AM (lower dose) -continue to hold losartan at hospital d/c -needs bmp before seeing PCP at hospital f/u appt w/ PCP -needs nephro hospital d/c appt (any provider) 2-3 wks after hospital d/c w/ bmp, phos, pth, 25 OHD, UACM, ACR, hgb, ferritin, t sat to be ordered by neph RN and drawn in days before appt (2) Urinary retention: Plan: w/ stewart; per urology > voiding trial TBD (3) Frequent falls: Plan: 2 hospital stays in past 10 mos w/ broken bones from fall, one (last June) needing surgery. -careful saftely planning at d/c >?rehab Admission and Anticipated Discharge Date Admission Date: May 18, 2023 Subjective no acute interval events. denies dypsnea or worsening edema. and son bedside. Review of Systems Review of Systems: All systems reviewed & are unremarkable except as noted in Subjective Physical Exam Constitutional: well developed (Sitting up in chair on room air) and well nourished; no acute distress Eyes: EOM intact bilaterally ENMT: Ears: no external ear abnormality Nose: no external nose abnormality Mouth: + dry oral mucous membranes Neck: no nuchal rigidity Respiratory: normal respiratory effort Auscultation: + diminished lung sounds Cardiovascular: Rate/Rhythm: regular rate and regular rhythm Extremities: + edema (Trace right lower extremity, none left lower extremity) Gastrointestinal (Abdomen): Inspection/Auscultation: normal bowel sounds Percussion/Palpation: abdomen soft; abdomen nontender Musculoskeletal: Extremities: strength 5/5 throughout Skin: no rashes, warm and dry Psychiatric: Orientation: alert and oriented to person; + not oriented to place and + not oriented to time Speech: normal rate/rhythm/volume of speech Results & Data Vital Signs (Past 12 Hours) Vital Signs Temp Pulse Pulse Resp BP Pulse Ox O2 Del Method 05/23/23 07:33 36.4 C L 74 16 148/84 H 99 Room Air 05/23/23 07:26 68 05/23/23 07:25 69 05/23/23 02:36 36.4 C L 69 20 171/76 H 97 Room Air 05/23/23 00:00 Room Air Laboratory Results 05/22/23 07:22 05/23/23 09:10
--- NOTE | 2023-05-23 14:41 | Pharmacy Report ---
Pharmacy Glycemic Short Note 2 - Date of Service May 23, 2023 - Glycemic Short BSG Results (Last 24 hours): 05/22/23 05/22/23 05/23/23 17:03 20:20 08:06 Glucose POC Glucose 131 H 135 H 156 H 05/23/23 05/23/23 09:10 12:27 Glucose 188 H POC Glucose 277 H OUTPATIENT ANTIDIABETIC REGIMEN: * Lantus 34 units SC HS * Novolog 14-16 units SC w/ breakfast and lunch, 18 units SC w/ dinner HbA1c: 6.4% (04/29/23) ASSESSMENT: 05/23/23 * Patient received total of 31 units of insulin yesterday, of which 10 units were basal * Fasting BSG 156 mg/dL - will continue with basal 10 units plus scale for basal at HS depending on BSG value. Patient continues on sodium bicarb in D5W * Insulin orders adjusted at breakfast. No coverage given however as there was confusion that the order was discontinued * Lunch BSG elevated, will continue same novolog parameters for now. Appears patient typically higher at lunch, will have tighter novolog at that time 05/22/23 * BSGs continue trend of peak at lunchtime and reasonably well-controlled for rest of day * Fasting BSG this morning is elevated at 164 mg/dL, will restart basal insulin * Sodium bicarb in D5W initiated by nephrology to infuse @80 mL/hr 05/21/23 * BSGs yesterday were 740-243-145-91 mg/dL. Patient received 10 units of bolus. * BSGs today are 118-216 mg/dL. * Tighten CR slightly since patient trends upwards throughout the day. * Continue with Lantus scale tonight. Lowered doses due to concern for hypoglycemia. 05/20: * Patient received total 26 units of insulin yesterday- 15 units basal and 11 units bolus. * BSG trended down from 230 mg/dl pre-lunch yesterday to 67 mg/dl pre-dinner. * Fasting BSG today was 117 mg/dl. * Basal dose held this AM and Novolog parameters loosened. Will continue with basal dose scale at HS based on BSG. 05/19: * DL is a 88 year old male w/ LILA on CKD, recently discharged from hospital on 05/04/23 * SCr on admission of 2.7 mg/dL -> down to 2.34 mg/dL today * Urology consulted * BSGs in 90s on admission - basal insulin withheld * BSG trended up today at lunch to 230 mg/dL. Will initiate Lantus now. * Recent admission data suggests ~50 units of insulin/day is reasonable PLAN FOR INPATIENT GLYCEMIC CONTROL: * Basal insulin * Lantus 10 units SC daily * Lantus 0-10 units SQ HS based on BSG (see EHR for details) * Bolus insulin * NovoLog per scale ACHS or Q6hrs while NPO * Goal Range: Low 110 mg/dL - High 140 mg/dL * Correction Factor: 25 mg/dL/unit (CF 20 with breakfast) * Nutritional / Prandial insulin per carb ratio of 1 unit per 8 grams CHO consumed (CR 6 with breakfast)
--- NOTE | 2023-05-23 18:18 | Hospitalist Progress Note ---
Date of Service May 23, 2023 Assessment & Plan (1) Acute kidney injury superimposed on chronic kidney disease: Plan: per previous attending notes with addendum: LILA on CKD possible Obstructive Uropathy, Urinary retention possible PreRenal vs ATN in the setting of Diarrhea, Poor oral Intake Diarrhea secondary to enterotoxigenic E. coli Confusion ; multifactorial secondary to urinary retention, LILA on CKD, gastroenteritis in setting of dementia. 88-year-old male presents to the hospital due to confusion, nausea vomiting and diarrhea. Afebrile, normotensive and saturating well on room air No leukocytosis Hemoglobin slightly lowered from past admission; around 10 g/dl CT head without contrast personally reviewed; no acute intracranial abnormality. Chest x-ray personally reviewed; no acute finding. CT abdomen pelvis; no acute intra-abdominal finding. Prostatomegaly present with evidence of chronic bladder obstruction. Garcia placed by urology. Creatinine down trended with placement of Garcia; his baseline seems to be around 2.5. Continue to monitor Garcia output. Bladder scan every 8 hours check for retention On empiric ceftriaxone for now. DC antibiotic if blood cultures are negative after 48 hours. Patient is no longer having diarrhea; supportive care with encouragement of oral hydration. Discussed with urology JACKY Garcia; discharge instruction to be placed regarding follow-up with urology. 05/23 crea still trending up 2.6, slightly better at 2.4 today Nephro consulted Continue bicarb drip continue Garcia Cath still having loose stools Cipro 500mg po daily started (renally dosed) -Diarrhea resolved mental status back to baseline Pancytopenia - hx of anemia - Anemia and thrombocytopenia possibly secondary to recent use of linezolid - tick borne panel also obtained in the ED - Peripheral blood smear remarkable for normocytic anemia, thrombocytopenia and borderline leukopenia. No suggestion of myelodysplasia or primary hematologic abnormality. - Reticulocyte count is just 0.2% suggesting decreased bone marrow production. Plan to repeat CBC after discharge in 1 week. 05/22 CBC stable Chronic conditions hx CAD status post CABG hx PAD status post stent SSS status post PPM hypertension hyperlipidemia statin Rx - for above conditions - cont. home meds BRIAN CPAP noncompliance DM2 insulin requiring Current A1c 6.4% decrease home insulin given poor oral intake, glycemic pharmacy consult Inpt BS goal 110- 40, carb count coverage Full code DVT prophylaxis on hold due to thrombocytopenia PT OT ordered. Recommended rehab. Discussed with at bedside. She wants to discuss further with case management regarding rehab. plan of care discussed with patient and his family at bedside in detail and at length all questions answered they are understanding, agreeable, comfortable with the plan of care Admission and Anticipated Discharge Date Admission Date: May 18, 2023 Subjective ff up for LILA, etc. Seen resting in bed, awake and alert Feels slightly better today No diarrhea, weakness seems to be slightly improving No other new symptom Review of Systems Review of Systems: all noted and negative except for above Physical Exam Physical Exam: General- oriented x 3, not in distress, speaks in sentences with no effort or accessory muscle use Eyes- anicteric Neck- no JVD Lungs- clear breath sounds bilaterally, no crackles or wheezing Heart- normal rate, regular rhythm; no murmurs Abdomen- normal bowel sounds, nondistended, soft, nontender Garcia catheter in place, draining yellow urine Extremities- no pretibial edema, no calf tenderness Neuro- alert, oriented x 3; no gross focal neurologic deficits Skin- warm & dry Results & Data Results & Data Vital Signs (Past 12 Hours) Vital Signs Temp Pulse Pulse Resp BP BP Pulse Ox 05/23/23 14:56 37.0 C 73 20 125/67 97 05/23/23 11:17 36.7 C 76 16 154/72 H 98 05/23/23 07:33 36.4 C L 74 16 148/84 H 99 05/23/23 07:26 68 05/23/23 07:25 69 O2 Del Method 05/23/23 14:56 Room Air 05/23/23 11:17 Room Air 05/23/23 07:33 Room Air 05/23/23 07:26 05/23/23 07:25 all noted and reviewed including below
[2023-05-23] MEDS: CIPROFLOXACIN 500 MG TAB PO SCH (18:34)
[2023-05-23] MEDS: ASPIRIN 81 MG ECTAB PO SCH (20:03)
[2023-05-24] MEDS: SODIUM BICARBONATE 8.4% 75 MEQ in DEXTROSE 5% 1,000 ML IV SCH (05:20)
[2023-05-24 07:51] LABS: Calcium 8.3 mg/dl (8.6-10.3); Potassium 4.7 mmol/L (3.5-5.1)
[2023-05-24 08:01] LABS: BUN Creatinine Ratio 13.4 (10-20); Est GFR (African American) 32.3 ml/min; Est GFR (Non-African American) 27.8 ml/min
[2023-05-24] MEDS: allopurinoL 100 MG TAB PO SCH (08:24)
[2023-05-24] MEDS: PANTOprazole 40 MG TAB PO SCH ×2 (08:25→20:34)
[2023-05-24] MEDS: RANOLAZINE 500 MG ER TAB PO SCH ×2 (08:25→20:16)
[2023-05-24] MEDS: CHOLESTYRAMINE LIGHT 4 GM PKT PO SCH ×2 (08:25→21:42)
[2023-05-24] MEDS: TAMSULOSIN HCL 0.4 MG CAP PO SCH (08:25)
[2023-05-24] MEDS: INSULIN ASPART PER UNIT CHARGE SC SCH ×6 (09:21→20:16)
[2023-05-24] MEDS: LANTUS PER UNIT CHARGE SQ SCH ×2 (09:22→20:16)
--- NOTE | 2023-05-24 14:09 | Hospitalist Progress Note ---
Date of Service May 24, 2023 delayed entry date of service noted above Assessment & Plan (1) Acute kidney injury superimposed on chronic kidney disease: Plan: per previous attending notes with addendum: LILA on CKD possible Obstructive Uropathy, Urinary retention possible PreRenal vs ATN in the setting of Diarrhea, Poor oral Intake Diarrhea secondary to enterotoxigenic E. coli Confusion ; multifactorial secondary to urinary retention, LILA on CKD, gastroenteritis in setting of dementia. 88-year-old male presents to the hospital due to confusion, nausea vomiting and diarrhea. Afebrile, normotensive and saturating well on room air No leukocytosis Hemoglobin slightly lowered from past admission; around 10 g/dl CT head without contrast personally reviewed; no acute intracranial abnormality. Chest x-ray personally reviewed; no acute finding. CT abdomen pelvis; no acute intra-abdominal finding. Prostatomegaly present with evidence of chronic bladder obstruction. Garcia placed by urology. Creatinine down trended with placement of Garcia; his baseline seems to be around 2.5. Continue to monitor Garcia output. Bladder scan every 8 hours check for retention On empiric ceftriaxone for now. DC antibiotic if blood cultures are negative after 48 hours. Patient is no longer having diarrhea; supportive care with encouragement of oral hydration. Discussed with urology JACKY Garcia; discharge instruction to be placed regarding f ollow-up with urology. 05/23 crea still trending up 2.6, slightly better at 2.4 today Nephro consulted Continue bicarb drip continue Garcia Cath still having loose stools Cipro 500mg po daily started (renally dosed) -Diarrhea resolved mental status back to baseline 05/24 Creatinine improved, 2.0 Continue bicarb drip, reduce rate Diarrhea resolved Continue Cipro day #2 PT OT eval Pancytopenia - hx of anemia - Anemia and thrombocytopenia possibly secondary to recent use of linezolid - tick borne panel also obtained in the ED - Peripheral blood smear remarkable for normocytic anemia, thrombocytopenia and borderline leukopenia. No suggestion of myelodysplasia or primary hematologic abnormality. - Reticulocyte count is just 0.2% suggesting decreased bone marrow production. Plan to repeat CBC after discharge in 1 week. 05/22 CBC stable Chronic conditions hx CAD status post CABG hx PAD status post stent SSS status post PPM hypertension hyperlipidemia statin Rx - for above conditions - cont. home meds BRIAN CPAP noncompliance DM2 insulin requiring Current A1c 6.4% decrease home insulin given poor oral intake, glycemic pharmacy consult BSG 135-154 Full code DVT prophylaxis on hold due to thrombocytopenia PT OT ordered. Recommended rehab. Discussed with at bedside. She wants t o discuss further with case management regarding rehab. Admission and Anticipated Discharge Date Admission Date: May 18, 2023 Subjective Follow-up for acute renal failure, etc. Seen sitting up in bedside chair, comfortable, reading a book States he feels he is improving States he feels less weak Denies shortness of breath, cough, abdominal pain No diarrhea No other symptom Review of Systems Review of Systems: all noted and negative except for above Physical Exam Physical Exam: General- oriented x 3, not in distress, speaks in sentences with no effort or accessory muscle use Eyes- anicteric Neck- no JVD Lungs- clear BS BL Heart- normal rate, regular rhythm; no murmurs Abdomen- normal bowel sounds, nondistended, soft, no tenderness Garcia catheter in place: Yellow urine Extremities- no pretibial edema, no calf tenderness Neuro- alert, oriented x 3; no gross focal neurologic deficits Skin- warm & dry Results & Data Results & Data Vital Signs (Past 12 Hours) Vital Signs Temp Pulse Pulse Resp BP BP Pulse Ox 05/24/23 12:13 37.0 C 81 20 136/75 98 05/24/23 07:50 05/24/23 07:23 36.5 C 66 18 155/70 H 97 05/24/23 07:09 65 05/24/23 04:25 36.4 C L 70 20 144/68 H 98 O2 Del Method 05/24/23 12:13 Room Air 05/24/23 07:50 Room Air 05/24/23 07:23 Room Air 05/24/23 07:09 05/24/23 04:25 Room Air all noted and reviewed including below
[2023-05-24] MEDS: SODIUM BICARBONATE IV SCH (16:55)
[2023-05-24] MEDS: DEXTROSE 5% IV SCH (16:55)
[2023-05-24] MEDS: CIPROFLOXACIN 500 MG TAB PO SCH (17:30)
[2023-05-24] MEDS: ASPIRIN 81 MG ECTAB PO SCH (20:16)
[2023-05-25] MEDS: SODIUM BICARBONATE IV SCH (06:03)
[2023-05-25] MEDS: DEXTROSE 5% IV SCH (06:03)
[2023-05-25 07:03] LABS: BUN Creatinine Ratio 13.6 (10-20); Creatinine Clr Calc Pharmacy 28.1 ml/min; Est GFR (African American) 37.6 ml/min; Est GFR (Non-African American) 32.5 ml/min; Potassium 4.4 mmol/L (3.5-5.1)
[2023-05-25] MEDS ORDERED: LANTUS PER UNIT CHARGE SQ SCH (09:00)
--- NOTE | 2023-05-25 09:36 | Hospitalist Progress Note ---
Date of Service May 25, 2023 Assessment & Plan (1) Acute kidney injury superimposed on chronic kidney disease: Plan: per previous attending notes with addendum: LILA on CKD possible Obstructive Uropathy, Urinary retention possible PreRenal vs ATN in the setting of Diarrhea, Poor oral Intake Diarrhea secondary to enterotoxigenic E. coli Confusion ; multifactorial secondary to urinary retention, LILA on CKD, gastroenteritis in setting of dementia. 88-year-old male presents to the hospital due to confusion, nausea vomiting and diarrhea. Afebrile, normotensive and saturating well on room air No leukocytosis Hemoglobin slightly lowered from past admission; around 10 g/dl CT head without contrast personally reviewed; no acute intracranial abnormality. Chest x-ray personally reviewed; no acute finding. CT abdomen pelvis; no acute intra-abdominal finding. Prostatomegaly present with evidence of chronic bladder obstruction. Garcia placed by urology. Creatinine down trended with placement of Garcia; his baseline seems to be around 2.5. Continue to monitor Garcia output. Bladder scan every 8 hours check for retention On empiric ceftriaxone for now. DC antibiotic if blood cultures are negative after 48 hours. Patient is no longer having diarrhea; supportive care with encouragement of oral hydration. Discussed with urology JACKY Garcia; discharge instruction to be placed regarding follow-up with urology. 05/23 crea still trending up 2.6, slightly better at 2.4 today Nephro consulted Continue bicarb drip continue Garcia Cath still having loose stools Cipro 500mg po daily started (renally dosed) -Diarrhea resolved mental status back to baseline 05/24 Creatinine improved, 2.0 Continue bicarb drip, reduce rate Diarrhea resolved Continue Cipro day #2 PT OT eval 05/25 Creatinine continues to improve, currently 1.8 DC bicarb drip Diarrhea resolved Continue Cipro day #3 of 7 PT OT evaluation pending Pancytopenia - hx of anemia - Anemia and thrombocytopenia possibly secondary to recent use of linezolid - tick borne panel also obtained in the ED - Peripheral blood smear remarkable for normocytic anemia, thrombocytopenia and borderline leukopenia. No suggestion of myelodysplasia or primary hematologic abnormality. - Reticulocyte count is just 0.2% suggesting decreased bone marrow production. Plan to repeat CBC after discharge in 1 week. 05/22 CBC stable Chronic conditions hx CAD status post CABG hx PAD status post stent SSS status post PPM hypertension hyperlipidemia statin Rx - for above conditions - cont. home meds BRIAN CPAP noncompliance DM2 insulin requiring Current A1c 6.4% decrease home insulin given poor oral intake, glycemic pharmacy consult BSG 135-154 Full code DVT prophylaxis on hold due to thrombocytopenia PT OT ordered. Recommended rehab. Discussed with at bedside. She wants to discuss further with case management regarding rehab. Admission and Anticipated Discharge Date Admission Date: May 18, 2023 Subjective Follow-up for acute renal failure, etc. Seen sitting up in bed, comfortable, not in distress In good spirits States he continues to feel improved overall No shortness of breath, leg pain, denies diarrhea, abdominal pain No fevers or chills No other new symptom Review of Systems Review of Systems: all noted and negative except for above Physical Exam Physical Exam: General- oriented x 3, not in distress, speaks in sentences with no effort or accessory muscle use Eyes- anicteric Neck- no JVD Lungs- clear breath sounds bilaterally, crackles, no wheezing Heart- normal rate, regular rhythm; no murmurs Abdomen- normal bowel sounds, nondistended, soft, nontender Extremities- no pretibial edema, no calf tenderness Neuro- alert, oriented x 3; no gross focal neurologic deficits Skin- warm & dry Results & Data Results & Data Vital Signs (Past 12 Hours) Vital Signs Temp Pulse Pulse Resp BP Pulse Ox O2 Del Method 05/25/23 07:18 36.4 C L 81 18 160/74 H 98 Room Air 05/25/23 06:00 80 05/25/23 04:13 36.4 C L 77 20 172/73 H 97 Room Air 05/24/23 23:32 36.9 C 72 20 154/71 H 97 Room Air 05/24/23 21:58 77 all noted and reviewed including below
[2023-05-25] MEDS: RANOLAZINE 500 MG ER TAB PO SCH ×2 (10:11→21:09)
[2023-05-25] MEDS: TAMSULOSIN HCL 0.4 MG CAP PO SCH (10:11)
[2023-05-25] MEDS: allopurinoL 100 MG TAB PO SCH (10:11)
[2023-05-25] MEDS: INSULIN ASPART PER UNIT CHARGE SC SCH ×4 (10:11→21:11)
[2023-05-25] MEDS: PANTOprazole 40 MG TAB PO SCH ×2 (10:15→21:09)
[2023-05-25] MEDS: CHOLESTYRAMINE LIGHT 4 GM PKT PO SCH ×2 (11:03→21:09)
--- NOTE | 2023-05-25 13:05 | Pharmacy Report ---
Pharmacy Glycemic Short Note 2 - Date of Service May 25, 2023 - Glycemic Short BSG Results (Last 24 hours): 05/24/23 05/24/23 05/25/23 17:25 20:02 05:28 Glucose 135 H POC Glucose 83 126 H 05/25/23 05/25/23 08:06 12:23 Glucose POC Glucose 154 H 206 H OUTPATIENT ANTIDIABETIC REGIMEN: * Lantus 34 units SC HS * Novolog 14-16 units SC w/ breakfast and lunch, 18 units SC w/ dinner HbA1c: 6.4% (04/29/23) ASSESSMENT: 05/25/23 * BSGs reasonably well-controlled yesterday w/ fasting BSG of 154 mg/dL this morning * Will increase basal today (20%) * Lunch BSG remains highest BSG of day - will further tighten AM parameters tomorrow * Sodium bicarbonate gtt in D5W discontinued today 05/23/23 * Patient received total of 31 units of insulin yesterday, of which 10 units were basal * Fasting BSG 156 mg/dL - will continue with basal 10 units plus scale for basal at HS depending on BSG value. Patient continues on sodium bicarb in D5W * Insulin orders adjusted at breakfast. No coverage given however as there was confusion that the order was discontinued * Lunch BSG elevated, will continue same novolog parameters for now. Appears patient typically higher at lunch, will have tighter novolog at that time 05/22/23 * BSGs continue trend of peak at lunchtime and reasonably well-controlled for rest of day * Fasting BSG this morning is elevated at 164 mg/dL, will restart basal insulin * Sodium bicarb in D5W initiated by nephrology to infuse @80 mL/hr 05/21/23 * BSGs yesterday were [id number] mg/dL. Patient received 10 units of bolus. * BSGs today are 118-216 mg/dL. * Tighten CR slightly since patient trends upwards throughout the day. * Continue with Lantus scale tonight. Lowered doses due to concern for hypoglycemia. 05/20: * Patient received total 26 units of insulin yesterday- 15 units basal and 11 units bolus. * BSG trended down from 230 mg/dl pre-lunch yesterday to 67 mg/dl pre-dinner. * Fasting BSG today was 117 mg/dl. * Basal dose held this AM and Novolog parameters loosened. Will continue with basal dose scale at HS based on BSG. 05/19: * DL is a 88 year old male w/ LILA on CKD, recently discharged from hospital on 05/04/23 * SCr on admission of 2.7 mg/dL -> down to 2.34 mg/dL today * Urology consulted * BSGs in 90s on admission - basal insulin withheld * BSG trended up today at lunch to 230 mg/dL. Will initiate Lantus now. * Recent admission data suggests ~50 units of insulin/day is reasonable PLAN FOR INPATIENT GLYCEMIC CONTROL: * Basal insulin * Lantus 12 units SC daily * Bolus insulin * NovoLog per scale ACHS or Q6hrs while NPO * Goal Range: Low 110 mg/dL - High 140 mg/dL * Correction Factor: 25 mg/dL/unit (CF 15 with breakfast) * Nutritional / Prandial insulin per carb ratio of 1 unit per 8 grams CHO consumed (CR 5 with breakfast)
[2023-05-25] MEDS: CIPROFLOXACIN 500 MG TAB PO SCH (18:32)
[2023-05-25] MEDS: HEPARIN SOD 5,000 UNIT/0.5 ML VIAL SQ SCH (21:08)
[2023-05-25] MEDS: ACETAMINOPHEN 325 MG TAB PO PRN (21:09)
[2023-05-25] MEDS: MELATONIN 3 MG TAB PO PRN (21:09)
[2023-05-25] MEDS: ASPIRIN 81 MG ECTAB PO SCH (21:09)
[2023-05-26 07:11] LABS: BUN Creatinine Ratio 13.8 (10-20); Calcium 8.3 mg/dl (8.6-10.3); Creatinine Clr Calc Pharmacy 27.9 ml/min; Est GFR (African American) 36.7 ml/min; Est GFR (Non-African American) 31.6 ml/min; Potassium 4.2 mmol/L (3.5-5.1)
[2023-05-26] MEDS: allopurinoL 100 MG TAB PO SCH (08:10)
[2023-05-26] MEDS: RANOLAZINE 500 MG ER TAB PO SCH (08:10)
[2023-05-26] MEDS: PANTOprazole 40 MG TAB PO SCH (08:10)
[2023-05-26] MEDS: TAMSULOSIN HCL 0.4 MG CAP PO SCH (08:10)
[2023-05-26] MEDS: HEPARIN SOD 5,000 UNIT/0.5 ML VIAL SQ SCH (08:11)
[2023-05-26] MEDS ORDERED: LOPERAMIDE HCL 2 MG CAP PO PRN (08:14)
[2023-05-26] MEDS ORDERED: LANTUS PER UNIT CHARGE SQ SCH (09:00)
[2023-05-26] MEDS: INSULIN ASPART PER UNIT CHARGE SC SCH ×2 (09:02→13:19)
[2023-05-26] MEDS: CHOLESTYRAMINE LIGHT 4 GM PKT PO SCH (09:33)
--- NOTE | 2023-05-26 15:48 | Hospitalist Progress Note ---
Date of Service May 26, 2023 Assessment & Plan (1) Acute kidney injury superimposed on chronic kidney disease: Plan: per previous attending notes with addendum: LILA on CKD possible Obstructive Uropathy, Urinary retention possible PreRenal vs ATN in the setting of Diarrhea, Poor oral Intake Diarrhea secondary to enterotoxigenic E. coli Confusion ; multifactorial secondary to urinary retention, LILA on CKD, gastroenteritis in setting of dementia. 88-year-old male presents to the hospital due to confusion, nausea vomiting and diarrhea. Afebrile, normotensive and saturating well on room air No leukocytosis Hemoglobin slightly lowered from past admission; around 10 g/dl CT head without contrast personally reviewed; no acute intracranial abnormality. Chest x-ray personally reviewed; no acute finding. CT abdomen pelvis; no acute intra-abdominal finding. Prostatomegaly present with evidence of chronic bladder obstruction. Garcia placed by urology. Creatinine down trended with placement of Garcia; his baseline seems to be around 2.5. Continue to monitor Garcia output. Bladder scan every 8 hours check for retention On empiric ceftriaxone for now. DC antibiotic if blood cultures are negative after 48 hours. Patient is no longer having diarrhea; supportive care with encouragement of oral hydration. Discussed with urology JACKY Garcia; discharge instruction to be placed regarding follow-up with urology. 05/23 crea still trending up 2.6, slightly better at 2.4 today Nephro consulted Continue bicarb drip continue Garcia Cath still having loose stools Cipro 500mg po daily started (renally dosed) -Diarrhea resolved mental status back to baseline 05/24 Creatinine improved, 2.0 Continue bicarb drip, reduce rate Diarrhea resolved Continue Cipro day #2 PT OT eval 05/25 Creatinine continues to improve, currently 1.8 discontinued bicarb drip 05/26 Diarrhea resolved Continue Cipro day #4 of 7 resume Lasix at 20mg po daily (usually on 40mg BID) repeat BMP in 2-3 days monitor volume status closely maintain Garcia Cath ff up with Urologist in 1-2 weeks Pancytopenia - hx of anemia - Anemia and thrombocytopenia possibly secondary to recent use of linezolid - tick borne panel also obtained in the ED - Peripheral blood smear remarkable for normocytic anemia, thrombocytopenia and borderline leukopenia. No suggestion of myelodysplasia or primary hematologic abnormality. - Reticulocyte count is just 0.2% suggesting decreased bone marrow production. Plan to repeat CBC after discharge in 1 week. Chronic conditions hx CAD status post CABG hx PAD status post stent SSS status post PPM hypertension hyperlipidemia statin Rx - for above conditions - cont. home meds BRIAN CPAP noncompliance DM2 insulin requiring Current A1c 6.4% decrease home insulin given poor oral intake, glycemic pharmacy consult BSG 135-154 Full code DVT prophylaxis d/c to Acute Rehab Admission and Anticipated Discharge Date Admission Date: May 18, 2023 Subjective ff up for LILA, etc seen resting in chair, comfortable states he feels fine overall no diarrhea no other new symptoms Review of Systems Review of Systems: all noted and negative except for above Physical Exam Physical Exam: General- oriented x 3, not in distress, speaks in sentences with no effort or accessory muscle use Eyes- anicteric Neck- no JVD Lungs- clear breath sounds bilaterally, no rales/wheezes Heart- normal rate, regular rhythm; no murmurs Abdomen- normal bowel sounds, nondistended, soft, nontender Extremities-mild pretibial edema, no calf tenderness Neuro- alert, oriented x 3; no gross focal neurologic deficits Skin- warm & dry Results & Data Results & Data Vital Signs (Past 12 Hours) Vital Signs Temp Pulse Pulse Resp BP BP Pulse Ox 05/26/23 14:53 72 05/26/23 11:31 36.8 C 78 16 111/60 97 05/26/23 10:49 05/26/23 07:55 36.5 C 70 16 145/50 H 97 05/26/23 07:18 76 05/26/23 04:57 36.4 C L 73 20 151/70 H 98 O2 Del Method 05/26/23 14:53 05/26/23 11:31 Room Air 05/26/23 10:49 Room Air 05/26/23 07:55 Room Air 05/26/23 07:18 05/26/23 04:57 Room Air all noted and reviewed including below
--- NOTE | 2023-05-26 15:59 | Discharge Summary ---
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 Patient with dementia, and recently admitted and treated for UTI and LILA. He was discharged on oral antibiotics, and per he was doing well initially. He established care with [facility] PCP. Patient's is present at the bedside and provides history and confirms the medications. She says for the past 3 days patient would not eat or drink, was more disoriented, and only wanted to sleep. She also noticed that his loose stools got worse. He seems to be weaker even while walking with a walker and she was afraid he would fall. Yesterday he was interested in watching football game, which is unusual for him. In the ED creatinine elevated at 2.7. Also troponin elevated at 70, repeat troponin decreased. CT head, chest x-ray, and CT abdomen pelvis obtained in the ED, and without any acute changes. He has known BPH, and patient's says that he was not really urinating today. In the ED he was provided with IV fluids. I asked for bladder ultrasound. Patient is retaining urine and Garcia catheter will be placed, over 400 cc currently in bladder. No fevers chills, no cough no shortness of breath. Denies abdominal pain. UA ordered in the ED and pending. I also asked for stool PCR given diarrhea. Tick borne illness panel ordered in ED and pending. Admission Exam Per Admitting Provider Constitutional: WD/WN, vitals as above Eyes: PERRL, conjunctivae normal, anicteric sclerae ENMT: external ear and nose normal, oropharynx normal Neck: + thick neck Respiratory: normal respiratory effort, lungs clear to auscultation Cardiovascular: RRR, no murmur, no edema Gastrointestinal (Abdomen): normal bowel sounds, soft, nontender, no hepatosplenomegaly Musculoskeletal: Extremities: extremities normal to inspection (moves extremities) Skin: no rashes, warm and dry Neurologic: PERRL, EOMI, accommodation nl, no face palsy, no dysarthria (drowsy but able to answer simple questions) Psychiatric: A+Ox3, euthymic affect Principal Dx & Hospital Course #1 = Principal Diagnosis (1) Acute kidney injury superimposed on chronic kidney disease: per previous attending notes with addendum: LILA on CKD possible Obstructive Uropathy, Urinary retention possible PreRenal vs ATN in the setting of Diarrhea, Poor oral Intake Diarrhea secondary to enterotoxigenic E. coli Confusion ; multifactorial secondary to urinary retention, LILA on CKD, gastroenteritis in setting of dementia. 88-year-old male presents to the hospital due to confusion, nausea vomiting and diarrhea. Afebrile, normotensive and saturating well on room air No leukocytosis Hemoglobin slightly lowered from past admission; around 10 g/dl CT head without contrast personally reviewed; no acute intracranial abnormality. Chest x-ray personally reviewed; no acute finding. CT abdomen pelvis; no acute intra-abdominal finding. Prostatomegaly present with evidence of chronic bladder obstruction. Garcia placed by urology. Creatinine down trended with placement of Garcia; his baseline seems to be around 2.5. Continue to monitor Garcia output. Bladder scan every 8 hours check for retention On empiric ceftriaxone for now. DC antibiotic if blood cultures are negative after 48 hours. Patient is no longer having diarrhea; supportive care with encouragement of oral hydration. Discussed with urology JACKY Garcia; discharge instruction to be placed regarding follow-up with urology. 05/23 crea still trending up 2.6, slightly better at 2.4 today Nephro consulted Continue bicarb drip continue Garcai Cath still having loose stools Cipro 500mg po daily started (renally dosed) -Diarrhea resolved mental status back to baseline 05/24 Creatinine improved, 2.0 Continue bicarb drip, reduce rate Diarrhea resolved Continue Cipro day #2 PT OT eval 05/25 Creatinine continues to improve, currently 1.8 discontinued bicarb drip 05/26 Diarrhea resolved Continue Cipro day #4 of 7 resume Lasix at 20mg po daily (usually on 40mg BID) repeat BMP in 2-3 days monitor volume status closely maintain Garcia Cath ff up with Urologist in 1-2 weeks Pancytopenia - hx of anemia - Anemia and thrombocytopenia possibly secondary to recent use of linezolid - tick borne panel also obtained in the ED - Peripheral blood smear remarkable for normocytic anemia, thrombocytopenia and borderline leukopenia. No suggestion of myelodysplasia or primary hematologic abnormality. - Reticulocyte count is just 0.2% suggesting decreased bone marrow production. Plan to repeat CBC after discharge in 1 week. Chronic conditions hx CAD status post CABG hx PAD status post stent SSS status post PPM hypertension hyperlipidemia statin Rx - for above conditions - cont. home meds BRIAN CPAP noncompliance DM2 insulin requiring Current A1c 6.4% decrease home insulin given poor oral intake, glycemic pharmacy consult BSG 135-154 Full code DVT prophylaxis d/c to Acute Rehab Discharge Exam General- oriented x 3, not in distress, speaks in sentences with no effort or accessory muscle use Eyes- anicteric Neck- no JVD Lungs- clear breath sounds bilaterally, no rales/wheezes Heart- normal rate, regular rhythm; no murmurs Abdomen- normal bowel sounds, nondistended, soft, nontender Extremities-mild pretibial edema, no calf tenderness Neuro- alert, oriented x 3; no gross focal neurologic deficits Skin- warm & dry Updated Medication List Medication Instructions Recorded Confirmed Type allopurinol 100 mg tablet 100 mg PO QAM 08/19/18 05/18/23 History insulin aspart U-100 100 unit/mL 14 - 16 unit subcut .BREAKFAST & 08/19/18 05/18/23 History (3 mL) subcutaneous pen (Novolog LUNCH FlexPen U-100 Insulin aspart) insulin glargine 100 unit/mL 34 unit subcut HS 08/19/18 05/18/23 History subcutaneous solution omeprazole 20 mg tablet,delayed 20 mg PO BID 08/19/18 05/18/23 History release rosuvastatin 5 mg tablet 5 mg PO QPM 08/19/18 05/18/23 History aspirin 81 mg tablet,delayed 81 mg PO QPM 04/29/23 05/18/23 History release calcium carbonate 600 mg-vitamin 1 tab PO BID 04/29/23 05/18/23 History D3 10 mcg (400 unit) tablet (Calcium 600 + D(3)) cholestyramine (with sugar) 4 gram 4 g PO AMPM 04/29/23 05/18/23 History powder for susp in a packet (Questran) ranolazine 500 mg tablet,extended 500 mg PO BID 04/29/23 05/18/23 History release,12 hr tamsulosin 0.4 mg capsule 0.4 mg PO DAILY 04/29/23 05/18/23 History tramadol 50 mg tablet 25 mg PO Q4H PRN pain (scale score 05/04/23 05/18/23 Rx 7-10) #7 tabs insulin aspart U-100 100 unit/mL 18 unit subcut .SUPPER 05/18/23 05/18/23 History (3 mL) subcutaneous pen (Novolog FlexPen U-100 Insulin aspart) ciprofloxacin HCl 500 mg tablet 500 mg PO Q24H 3 days #3 tabs 05/26/23 Rx furosemide 40 mg tablet 20 mg PO DAILY #14 tabs 05/26/23 05/18/23 Rx heparin, porcine (PF) 5,000 5,000 unit (0.5 mL) subcut Q12 14 05/26/23 Rx unit/0.5 mL injection syringe days #14 mL loperamide 2 mg capsule 2 mg PO UD PRN diarrhea 7 days #10 05/26/23 Rx caps Hospital Stay Data Consultations 05/18/23 15:29 ED Decision to Admit Stat 05/19/23 08:00 Consult Urology Routine 05/22/23 08:26 Consult Nephrology Routine Diagnostic Imagining Performed Laboratory Results WBC 7.68 K/ul (4.8-10.8) 05/22/23 07:22 RBC 3.20 M/uL (4.70-6.10) L 05/22/23 07:22 Hgb 10.3 g/dl (14.0-18.0) L 05/22/23 07:22 Hct 30.4 % (42.0-52.0) L 05/22/23 07:22 MCV 95.0 fL (80.0-100.0) 05/22/23 07:22 MCH 32.2 pg (25.0-34.0) 05/22/23 07:22 MCHC 33.9 g/dL (32.0-36.0) 05/22/23 07:22 RDW Std Deviation 48.8 fL (36.4-46.3) H 05/22/23 07:22 RDW Coeff of Dave 14.3 % (11.5-14.5) 05/22/23 07:22 Plt Count 83 K/uL (130-400) L 05/22/23 07:22 MPV 12.2 fL (9.4-12.4) 05/22/23 07:22 Immature Gran % (Auto) 6.6 % 05/22/23 07: Neut % (Auto) 61.3 % 05/22/23 07:22 Lymph % (Auto) 15.8 % 05/22/23 07:22 [place] % (Auto) 10.9 % 05/22/23 07:22 Eos % (Auto) 4.6 % 05/22/23 07:22 Baso % (Auto) 0.8 % 05/22/23 07:22 Reticulocyte % (Auto) 0.2 % (0.5-2.0) L 05/19/23 14:34 Neut # (Auto) 4.71 K/uL (1.40-6.50) 05/22/23 07:22 Lymph # (Auto) 1.21 K/uL (1.20-3.40) 05/22/23 07:22 [place] # (Auto) 0.84 K/uL (0.11-0.59) H 05/22/23 07:22 Eos # (Auto) 0.35 K/uL (0.00-0.50) 05/22/23 07:22 Baso # (Auto) 0.06 K/uL (0.00-0.20) 05/22/23 07: Reticulocyte # 0.01 10^6/uL (0.02-0.10) L 05/19/23 14:34 Immature Gran # (Auto) 0.51 K/uL (0.01-0.20) H 05/22/23 07:22 Platelet Estimate Decreased (Normal) L 05/18/23 12:05 Polychromasia 1+ 05/18/23 12:05 Ovalocytes 1+ 05/18/23 12:05 Peripher Smr Path Cons 05/18/23 17:39 Haptoglobin 168 mg/dL (43-212) 05/19/23 14:34 Sodium 137 mmol/L (136-145) 05/26/23 06:23 Potassium 4.2 mmol/L (3.5-5.1) 05/26/23 06:23 Chloride 104 mmol/L (98-107) 05/26/23 06:23 Carbon Dioxide 29 mmol/L (21-32) 05/26/23 06:23 Anion Gap 4 (3-11) 05/26/23 06:23 BUN 26 mg/dl (6-23) H 05/26/23 06:23 Creatinine 1.88 mg/dl (0.6-1.4) H 05/26/23 06:23 Est Cr Clr Drug Dosing 27.9 ml/min 05/26/23 06:23 Est GFR ( Amer) 36.7 ml/min 05/26/23 06:23 Est GFR (Non-Af Amer) 31.6 ml/min 05/26/23 06:23 BUN/Creatinine Ratio 13.8 (10-20) 05/26/23 06:23 Glucose 92 mg/dl (70-99(Fasting)) 05/26/23 06:23 POC Glucose 150 mg/dl (70-99) H 05/26/23 11:59 Calcium 8.3 mg/dl (8.6-10.3) L 05/26/23 06:23 Phosphorus 3.0 mg/dl (2.5-4.9) 05/19/23 04:44 Magnesium 2.1 mg/dl (1.7-2.4) 05/19/23 04:44 Total Bilirubin 0.6 mg/dl (0.2-1.0) 05/19/23 04:44 AST 23 U/L (13-39) 05/19/23 04:44 ALT 18 U/L (7-52) 05/19/23 04:44 Alkaline Phosphatase 89 U/L (34-104) 05/19/23 04:44 Ammonia 22.0 umol/L (18-72) 05/18/23 12:05 Lactate Dehydrogenase 202 U/L (86-244) 05/19/23 04:44 Troponin I High Sens 72.4 pg/ml (0-20) H* 05/18/23 13:56 Total Protein 4.9 gm/dl (6.0-8.3) L D 05/19/23 04:44 Albumin 3.3 gm/dl (3.4-5.0) L 05/19/23 04:44 Globulin 1.6 gm/dl (2.5-4.0) L 05/19/23 04:44 Albumin/Globulin Ratio 2.1 (0.9-2) H 05/19/23 04:44 Lipase 15 U/L (11-82) 05/18/23 12:05 TSH 3.905 uIu/ml (0.300-4.500) 05/18/23 12:05 Urine Color Yellow 05/18/23 17:22 Urine Appearance Clear (Clear) 05/18/23 17:22 Urine pH 5.0 (4.5-7.5) 05/18/23 17:22 Ur Specific [place] 1.013 (1.000-1.030) 05/18/23 17:22 Urine Protein Trace (Negative) H 05/18/23 17:22 Urine Glucose (UA) Negative (Negative) 05/18/23 17:22 Urine Ketones Negative (Negative) 05/18/23 17:22 Urine Blood 3+ (Negative) H 05/18/23 17:22 Urine Nitrite Negative (Negative) 05/18/23 17:22 Urine Bilirubin Negative (Negative) 05/18/23 17:22 Urine Urobilinogen Negative (Negative) 05/18/23 17:22 Ur Leukocyte Esterase Negative (Negative) 05/18/23 17:22 Urine WBC (Auto) 1-5 /hpf (0-5) 05/18/23 17:22 Urine RBC (Auto) >30 /hpf (0-4) H 05/18/23 17:22 U Hyaline Cast (Auto) 1-5 /lpf (0-5) 05/18/23 17:22 U Epithel Cells (Auto) 0-5 /lpf (0-5) 05/18/23 17:22 Urine Bacteria (Auto) Negative (Negative) 05/18/23 17:22 Stl C. cayetanensis PCR Not Detected (NotDetected) 05/19/23 Unknown Stool Rotavirus A PCR Not Detected (NotDetected) 05/19/23 Unknown Stl Adenov F 40/41 PCR Not Detected (NotDetected) 05/19/23 Unknown Stool Astrovirus (PCR) Not Detected (NotDetected) 05/19/23 Unknown Stool Campylobacter PCR Not Detected (NotDetected) 05/19/23 Unknown Stl C. diff Tox B Gene Negative Cdiff Gene (Neg) 05/22/23 16:37 Stool Cryptosporidium PCR Not Detected (NotDetected) 05/19/23 Unknown Stl E.coli Shiga Tox PCR Not Detected (NotDetected) 05/19/23 Unknown Stl Enterotoxigenic E PCR DETECTED (NotDetected) A* 05/19/23 Unknown Stool EPEC (PCR) Not Detected (NotDetected) 05/19/23 Unknown Stool EAEC (PCR) Not Detected (NotDetected) 05/19/23 Unknown Stl E. histolytica PCR Not Detected (NotDetected) 05/19/23 Unknown Stool Giardia Lamblia PCR Not Detected (NotDetected) 05/19/23 Unknown Stool Salmonella PCR Not Detected (NotDetected) 05/19/23 Unknown Stool Sapovirus (PCR) Not Detected (NotDetected) 05/19/23 Unknown Stl P. shigelloides PCR Not Detected (NotDetected) 05/19/23 Unknown Stl Shigella/EIEC PCR Not Detected (NotDetected) 05/19/[address].enterocolitica PCR Not Detected (NotDetected) 05/19/23 Unknown Stool Vibrio (PCR) Not Detected (NotDetected) 05/19/23 Unknown Stl Vibrio cholerae PCR Not Detected (NotDetected) 05/19/23 Unknown Stl Norovirus GI/GII PCR Not Detected (NotDetected) 05/19/23 Unknown Anaplasma Smear See Comment 05/18/23 17:03 A. phagocytophilum DNA Negative (Negative) 05/18/23 17:03 Babesia Smear See Comment 05/18/23 17:03 Babesia microti DNA PCR Not Detected (Not Detected) 05/18/23 17:03 Lyme Disease IgG Ab Negative (Negative) 05/18/23 17:39 Lyme Disease IgM Ab Negative (Negative) 05/18/23 17:39 SARS-CoV-2, RNA, NAAT NEGATIVE (NEGATIVE) 05/18/23 16:[address] 05/18/23 12:21 CT SCAN OF THE BRAIN WITHOUT IV CONTRAST CLINICAL HISTORY: Change in mental status. COMPARISON STUDY: CT of the brain dated 04/29/2023. TECHNIQUE: Unenhanced axial CT scan of the brain is performed from the vertex to the skull base. A dose lowering technique was utilized adhering to the principles of ALARA. FINDINGS: Brain parenchyma: There is age-related involutional change noting moderate subcortical and periventricular microangiopathic disease. There is no hemorrhage, mass effect, or evidence of acute territorial ischemia by CT c riteria. Braun-white matter differentiation is preserved. No extra-axial fluid collection is seen. Ventricles, sulci, cisterns: Prominent secondary to involutional change. Intracranial vasculature: There is atherosclerotic calcification of the cavernous carotid and vertebral artery. Calvarium: Unremarkable. Sinuses and mastoids: There is limited opacification of the left maxillary sinus. Thickening and sclerosis of the sinus wall indicates chronicity. The remaining visualized paranasal sinuses are clear. The mastoid air cells are well pneumatized. Orbits: The bony orbits are grossly intact. There are bilateral ocular lens implants. IMPRESSION: There is no hemorrhage, mass effect, or evidence of acute territorial ischemia by CT criteria. ACT 112: Negative or not required by law. Electronically signed by: Eddie Dillon M.D. 05/18/2023 1:28 PM Abdomen/Pelvis CT 05/18/23 13:11 CT SCAN OF THE ABDOMEN AND PELVIS WITHOUT IV CONTRAST CLINICAL HISTORY: Acute on chronic renal insufficiency. COMPARISON STUDY: Abdominal CT dated 04/30/2023. TECHNIQUE: CT scan of the abdomen and pelvis is performed from the lung bases to the proximal femora. Images are reviewed in the axial, sagittal, and coronal planes. IV contrast was not administered for this examination. A dose lowering technique was utilized adhering to the principles of ALARA. CT DOSE: 1991.92 mGy.cm FINDINGS: Lung bases: The patient is status post midline sternotomy. The heart is enlarged and without pericardial effusion. Pacemaker leads are in place. The coronary arteries are densely calcified. There is diminished attenuation of the cardiac blood pool as compared to the myocardium suggesting anemia. The lung bases are clear noting bibasilar scarring/atelectasis. There is a small hiatal hernia. Liver: The unenhanced liver is normal in size, contour, and attenuation. There is no intrahepatic biliary ductal dilatation. Gallbladder: There are layering calcified gallstones with no CT evidence of acute cholecystitis. Spleen: Normal in size and attenuation. 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 Pancreas: The unenhanced pancreas is moderately atrophic. Scattered parenchymal calcifications suggest chronic pancreatitis. Adrenal glands: Unremarkable. Kidneys: The unenhanced kidneys demonstrate cortical atrophy and are without hydronephrosis. There is a punctate nonobstructing right renal calculus. No left renal calculi are identified and no ureteral stone is seen. A 2 cm cyst is noted in the right upper pole. Abdominal vasculature: There is advanced atherosclerotic calcification and mild ectasia of the abdominal aorta. Bowel: There are scattered colonic diverticula without CT evidence of acute diverticulitis. No bowel obstruction is seen. The appendix is well-visualized and normal. Peritoneum: There is no intraperitoneal free air or abdominal ascites. There is a fat-containing umbilical hernia. Lymphadenopathy: None. Pelvic viscera: Evaluation of the pelvis is degraded by streak artifact from a left hip arthroplasty. The prostate gland is enlarged and heterogeneous. The bladder is distended, and the wall is thickened/trabeculated indicating chronic outlet obstruction. There are bilateral fat-containing groin hernias. Skeletal structures: The skeletal structures are osteopenic. There is advanced lumbosacral spondylosis with laminectomy change throughout the lumbar spine. No lytic or blastic lesions are seen. A left hip arthroplasty is in place. There are subacute left anterior 6th and 7th rib fractures. IMPRESSION: 1. No acute infectious or inflammatory findings are identified in the abdomen or pelvis. 2. The kidneys demonstrate cortical atrophy and are without hydronephrosis. 3. Punctate nonobstructing right renal calculus. 4. Subacute left anterior rib fractures as above. 5. Cardiomegaly and cardiac pacemaker. 6. Prostatomegaly with evidence of chronic bladder outlet obstruction. 7. Cholelithiasis. 8. Additional findings as above. ACT 112: Negative or not required by law. Electronically signed by: Eddie Dillon M.D. 05/18/2023 2:18 PM Chest X-Ray 05/22/23 09:42 XR chest 1V portable HISTORY: HFpEF hx off lasix x days > check pulm status COMPARISON: Chest 05/18/2023. FINDINGS: There are low lung volumes. No pneumothorax. No pleural effusions. Bibasilar linear densities persist and favor scarring or subsegmental atelectasis. There are poststernotomy changes and left-sided dual-chamber pacemaker. The heart remains mildly enlarged. No new focal lung consolidations to suggest a pneumonia. No evidence for pulmonary edema. There is a small right azygos lobe again noted. IMPRESSION: No significant change compared to the prior study. No acute process. ACT 112: Negative or not required by law. Electronically signed by: Benedicto Salas M.D. 05/22/2023 10:32 AM Pending Results Patient Have Any Pending Studies at Discharge: Yes Discharge Instructions Given to Patient (Per Discharging Provider) PLEASE REFER TO ATTACHED HOSPITAL DISCHARGE SUMMARY. Total Time Total Time Spent Total Time Spent (In Minutes): >30 MINUTES
[2023-05-26] MEDS ORDERED: FUROSEMIDE 20 MG TAB PO SCH (16:00)
== END 2023-05-26 17:13 | DRG 682 ==
LOC: ED 11:34 → SUATTDRO 17:07 → EDINP 17:07 → 2N 05-19 14:45